=== PATIENT | male | born 1950 | race Caucasian/White ===

== ENCOUNTER 2021-01-10 11:02 | Outpatient (REF) | payer MEDICARE, SELFPAY ==
[2021-01-10 12:39] LABS: MANUAL DIFF FLAG NO
[2021-01-10 12:48] LABS: Basophils Absolute Auto 0.1 X10*3/uL (0.0-0.2); Basophils Percent Auto 0.8 % (0-2); Eosinophils Absolute Auto 0.1 X10*3/uL (0.0-0.4); Eosinophils Percent Auto 1.4 % (0-4); Hemoglobin 14.5 g/dl (14.0-18.0); Imm Gran Abs Auto 0.02 X10*3/uL (0.00-0.03); Imm Gran Pct Auto 0.3 % (0.0-0.4); Lymphocytes Absolute Auto 1.3 X10*3/uL (1.2-4.9); Lymphocytes Percent Auto 19.4 % (20-40); Mean Corpuscular Hemoglobin 32.2 pg (27.0-33.0); Mean Corpuscular Volume 97.8 fL (80-98); Mean Platelet Volume 9.9 fL (9.4-12.4); Monocytes Absolute Auto 0.6 X10*3/uL (0.1-1.2); Monocytes Percent Auto 9.9 % (2-11); Neutrophils Absolute Auto 4.4 X10*3/uL (2.0-8.3); Neutrophils Percent Auto 68.2 % (45-73); Platelet Count 238 X10*3/uL (160-400); Red Cell Distribution Width 12.3 % (11.0-16.0); White Blood Count 6.5 X10*3/uL (4.8-10.8)
[2021-01-10 13:17] LABS: Anion Gap 15 (12-20); Blood Urea Nitrogen 24 mg/dL (9-16); Calcium 8.8 mg/dL (8.4-10.2); Carbon Dioxide 24 mmol/L (22-29); Chloride 107 mmol/L (96-108); Estimated Glomerular Filt Rate > 60; Glucose Random 89 mg/dL (60-115); Potassium 4.6 mmol/L (3.3-5.1); Sodium 141 mmol/L (135-145)
== END 2021-01-10 11:03 | disposition home or self-care (01) ==
LOC: HO.LAB 11:02
PROVIDERS: PCP Internal Medicine; Visit Provider Internal Medicine
DX: Z00.00 Encounter for general adult medical examination without abnormal findings (principal); R51.9 Headache, unspecified
CPT/HCPCS: 36415; 80048; 85025

== ENCOUNTER → 2021-01-20 10:59 | Outpatient (BNVA) | payer MEDICARE, SELFPAY | PROVIDERS: PCP Internal Medicine; Visit Provider Nurse Practitioner | DX: K62.5 Hemorrhage of anus and rectum (principal); R19.7 Diarrhea, unspecified | CPT/HCPCS: Q3014 ==

== ENCOUNTER 2021-01-21 08:10 | Outpatient (REF) | payer MEDICARE, SELFPAY ==
[2021-01-21 09:16] LABS: C Reactive Protein 0.09 mg/dL (< or = 0.50)
[2021-01-23 13:11] LABS: Transglutaminase Ab IgG 1 U/mL; Transglutaminase IgA 1 U/mL
[2021-01-23 16:01] LABS: Gliadin Deamidated IgA Ab 7 Units; Gliadin Deamidated IgG Ab 4 Units
== END 2021-01-21 08:11 | disposition home or self-care (01) ==
LOC: HO.LAB 08:10
PROVIDERS: PCP Internal Medicine; Visit Provider Nurse Practitioner
DX: K62.5 Hemorrhage of anus and rectum (principal); R19.7 Diarrhea, unspecified
CPT/HCPCS: 36415; 83516; 86140

== ENCOUNTER 2021-01-23 08:37 | Outpatient (REF) | payer MEDICARE, SELFPAY ==
[2021-01-23 11:59] LABS: CDIFF Ag Negative (Negative); CDIFF Internal ctrl Dots and bkg OK (V); CDiff Toxin Negative (Negative)
== END 2021-01-23 08:38 | disposition home or self-care (01) ==
LOC: HO.LNP 08:37
PROVIDERS: Visit Provider Nurse Practitioner
DX: K62.5 Hemorrhage of anus and rectum (principal); R19.7 Diarrhea, unspecified
CPT/HCPCS: 87045; 87046; 87324; 87449

== ENCOUNTER → 2021-01-30 10:26 | Outpatient (BNVA) | payer MEDICARE, SELFPAY | PROVIDERS: Visit Provider Nurse Practitioner | DX: K62.5 Hemorrhage of anus and rectum (principal); R19.7 Diarrhea, unspecified; R63.4 Abnormal weight loss; F17.200 Nicotine dependence, unspecified, uncomplicated; Z71.6 Tobacco abuse counseling | CPT/HCPCS: Q3014 ==

== ENCOUNTER → 2023-03-11 12:48 | Outpatient (BNVA) | payer MEDICARE, SELFPAY | PROVIDERS: PCP Internal Medicine; Visit Provider Nurse Practitioner Family | DX: N40.0 Benign prostatic hyperplasia without lower urinary tract symptoms (principal); N52.9 Male erectile dysfunction, unspecified | CPT/HCPCS: 51798; 99202 ==

== ENCOUNTER 2023-03-28 14:00 | Outpatient (REF) | payer MEDICARE, SELFPAY ==
--- NOTE | ~2023-03-28 | US_ITS ---
EXAMINATION: US RETROPERITONEAL COMPLETE (RENAL) CLINICAL INFORMATION: BPH with lower urinary tract symptoms. COMPARISON: None available. TECHNIQUE: Real-time imaging of the kidneys and bladder. FINDINGS: RIGHT KIDNEY: 10.7 x 4.3 x 5.1 cm (SAG x AP x TRV). The kidney is normal in size, contour, and echogenicity. Renal cortical thickness is normal. No calculi or focal parenchymal lesions. No hydronephrosis. Mild caliectasis. LEFT KIDNEY: 10.4 x 4.4 x 5.4 cm (SAG x AP x TRV). The kidney is normal in size, contour, and echogenicity. Renal cortical thickness is normal. No calculi or focal parenchymal lesions. No hydronephrosis. BLADDER: Well distended and normal. Bilateral ureteral jets are demonstrated. Prevoid bladder volume is 130 mL. Postvoid bladder volume is 26 mL. PROSTATE: 47 mL. US/US retroperitoneal comp IMPRESSION: Enlarged prostate. Mild right caliectasis. No hydronephrosis.
[2023-03-28 16:52] LABS: PSA,Total (Free>4and<10) 1.52 ng/mL (0.00-4.00)
== END 2023-03-28 14:01 | disposition home or self-care (01) ==
LOC: HO.US 14:00
PROVIDERS: PCP Internal Medicine; Visit Provider Nurse Practitioner Family
DX: N40.0 Benign prostatic hyperplasia without lower urinary tract symptoms (principal); Z12.5 Encounter for screening for malignant neoplasm of prostate
CPT/HCPCS: 36415; 76770; 84153

== ENCOUNTER → 2023-04-18 13:47 | Outpatient (BNVA) | payer MEDICARE, SELFPAY | PROVIDERS: Visit Provider Nurse Practitioner Family | DX: N52.9 Male erectile dysfunction, unspecified (principal); R39.9 Unspecified symptoms and signs involving the genitourinary system | CPT/HCPCS: 51798; 99212 ==

== ENCOUNTER 2024-10-19 09:55 | Outpatient (AMB) | payer MEDICARE, SELFPAY ==
--- OUTSIDE RECORDS SUMMARY | 2024-10-19 09:58 | XMS_ITS | Patient Health Record ---
Author Organization [facility] Address [address] [place] [address] Care Team Providers Care Inventory Transcriber Name Role Phone Evin JASON, Radha Primary Care Provider Unavail able Natanael Evans Unavailable [phone] Allergies Allergen (clinical drug ingredient) Drug/Non Drug Allergy documented on EMR Reaction Allergy Type Onset Date Status amoxicillin Amoxicillin rash Drug Allergy Act sharon povidone-iodine Betadine Unknown Drug Allergy A ctive Shellfish (FN) Shellfish-derived Products Unknown Drug Allergy Active Reason For Referral No Information Social History Tobacco Use: Social History Observation Description Date Details (start date - stop date) Former Smoker NA - NA Tobacco Use/Smoking Question Answer Notes Are you a: former smoker Additional Findings: Tobacco Non-User Ex-cigaret te smoker Alcohol Screen Question Answer Notes Did you have a drink contain ing alcohol in the past year? Yes How often did you have a dri nk containing alcohol in the past year? 2 to 3 times a week (3 points) Points 3 Interpretation Negative Problems Problem Type SNOMED Code ICD Code Onset Dates Problem Status W/U Status Risk Notes Problem [id number] Hammer toe of left foot (M20.42) Active confirmed Plan Of Treatment Pending Test Test Name Order Date X ray : Foot, left 3V 05/23/2022 Insurance Providers Payer Name Payer Address Payer Phone Subscriber Number Group Number Insured Name Patient Relationship to Insured Coverage Start Date Coverage End Date United [employer] Medicare [id number] [address] [address] [place] [address] [phone] [id number] Ruslan Hoang Self - patient is the insured Medical (General) History Medical History History ICD Code Chicken pox Surgical History Surgery Date(Month/Year) hernia 2012
--- NOTE | 2024-10-19 09:59 | MHC.PC.OV ---
Vital Signs 10/19/24 10:12 Height 5 ft 7 in Weight 139 lb 8 oz BMI 21.8 BP 130/76 Blood Pressure Location Lt brachial Position Sitting Intake Visit Reasons: establish care Intake Note: Patient is here today to re-establish care. 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: No Real Estate Rep: Not Required per policy Accompanied by: Self / Same As Patient Allergies penicillin G Allergy (Unknown, Verified 10/19/24 13:00) hives Medication List - Last Reconciled 10/19/24 by Nikolai Nicolas MD ciprofloxacin HCl 250 mg PO BID pantoprazole 40 mg PO DAILY Tobacco use date assessed: 10/19/24 Fall risk assessment: No Falls in past year Last assessed Fall Risk: 10/19/24 Dental Screening Dental Screen Date: 10/19/24 Did you have a dental visit in the last 12 months?: No Did you have a dental problem in the last 6 months where you did not have access to dental care?: No Was dental information given to patient?: No PFSH Surgical History Hx of colonoscopy (~2019) History of hernia surgery Family History (Updated 10/19/24 @ 09:59 by LYNDON Meneses) Mother No problems noted. Father No problems noted. 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 1. Little interest or pleasure in doing things: several days 2. Feeling down, depressed, or hopeless: several days 3. Trouble falling or staying asleep, or sleeping too much: several days 4. Feeling tired or having little energy: several days 5. Poor appetite or overeating: several days 6. Feeling bad about yourself - or that you are a failure or have let yourself or your family down: not at all 7. Trouble concentrating on things, such as reading the newspaper or watching television: not at all 8. Moving or speaking so slowly that other people could have noticed. Or the opposite - being so fidgety or restless that you have been moving around a lot more than usual: not at all 9. Thoughts that you would be better off or of hurting yourself in some way: not at all Total score: 5 Depression Screening Interpretation: Positive Depression Screening Done: Yes Source: Developed by Drs. Tim Sol, Krystyna Castillo, Vidal Lagos and colleagues, with an educational praveen from [email or web address]. Thrive Questionnaire Date Thrive assessed: 10/19/24 I am a: Patient What is your living situation today?: I have a steady place to live Within the past 12 months, did the food you bought not last and you didn't have the money to get more?: Never true Within the past 12 months, did you worry whether your food would run out before you got money to buy more?: Never true Do you have trouble paying for medicines?: No Do you have trouble getting transportation to medical appointments?: No Do you have trouble paying your heating and electricity bill?: No Do you have trouble taking care of your child, family member or friend?: No Do you have trouble with day-to-day activities such as bathing, preparing meals, shopping, managing finances, etc.?: No Are you currently unemployed and looking for a job?: No Are you interested in more education?: No Please select the resources that you would like help with: None Currently or been in a relationship where the following occur: No concerns reported THRIVE Score: 0 AUDIT C Alcohol Use Questionnaire (AUDIT-C) 1. How often do you have a drink containing alcohol?: 4 or more times a week 2. How many drinks containing alcohol do you have on a typical day when you are drinking?: 3 or 4 3. How often do you have six or more drinks on one occasion?: Never Total Score: 5 REJI-7 AMB Questionnaire REJI-7 Date REJI - 7 assessed: 10/19/24 Feeling nervous, anxious, or on edge: 0 = Not at all Not being able to stop or control worryin = Not at all Worrying too much about different things: 1 = Several days Trouble relaxin = Several days Being so restless that it is hard to sit still: 1 = Several days Becoming easily annoyed or irritable: 1 = Several days Feeling afraid as if something awful might happen: 1 = Several days Total REJI-7 score (0-4 normal; 5-9 mild; 10-14 moderate; 15-21 severe): 5 Source: Developed by Drs. Tim Sol, Krystyna Castillo, Vidal Lagos and colleagues, with an educational praveen from [email or web address]. Physical exam (Primary Care) Vital Signs: Last Vital Signs BP 130/76 10/19/24 10:12 BMI result Body Mass Index 21.8 Tobacco/Smoking Status: Tobacco use Status Tobacco use date assessed 10/19/24 10/19/24 10:03 Patient Tobacco Use Status Current everyday Tobacco 10/19/24 10:19 Tobacco use type Cigarette 10/19/24 10:19 e-Cigarette/Vaping Use Never Used 10/19/24 10:19 PHQ-9: PHQ-9 Score PHQ-9: Total score 5 10/19/24 10:00 Depression Screening Interpretation: Positive Thrive Assessment: Date of Thrive Assessment Date Thrive assessed 10/19/24 10/19/24 10:00 Currently or been in a relationship where the following occur: No concerns reported Coding Level of Care Code Est Pt Level 4 (36604) Complex EM visit Add On G2211 Diagnoses Rectal bleeding K62.5 Assessment & Plan Assessment & Plan (1) Rectal bleeding: Comment: 20 min reviewing chart evaluating patinet and documenting Code(s): K62.5 - Hemorrhage of anus and rectum Category: Medical Plan: Blood work has been ordered. CT scan of abdomen requested. Empric treatment with abx and PPI. Plan History of Present Illness The patient is a 74-year-old male presenting with irregular bowel movements and rectal bleeding. He reports experiencing loose stools that are not consistent with diarrhea for the past three weeks, resulting in irritation and bright red bleeding noted after four to five bowel movements. He describes abdominal pressure in the mornings, with symptoms persisting during late night hours. He experiences occasional nocturnal awakening due to gas sensations, which leads to bowel movements. The patient has had no relevant medical intervention or medications for this condition to date. He also mentions having a stable weight of approximately 140 pounds with no significant changes recently. A past colonoscopy performed a decade ago did not reveal any issues. Additionally, the patient has a history of prostate-related urinary difficulties but does not currently receive care from a urologist. 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 - Genitourinary: Reports occasional urinary difficulties associated with a history of prostate issues. Physical Exam General: Cooperative and healthy appearing Nutritional Appearance: Well nourished Orientation/consciousness: Patient oriented x3 Limitations: No limitations Head: Normal to inspection General: Appearance normal, both eyes and all related structures Neck: Normal visual inspection Chest: Normal palpation of entire chest wall Respiratory: Normal respiratory effort Abd: epigastric are thickening, ?lump, Bowel sounds heard, ?hepatomegaly. Neurology: Patient oriented x3 Rectal exam: no external hemorrhoid, rectal vault empty. Results Plan - Order blood work to evaluate liver and kidney function and check for possible infection. - Prescribe antiacid medication for stomach symptom relief. - Prescribe antibiotic to rule out bacterial infection. - Schedule a CAT scan of the abdomen to assess the firm area and further evaluate gastrointestinal symptoms. - Follow-up appointment scheduled for three weeks. Patient was informed and verbally consented to the use of an ambient scribe for clinic note documentation during this visit. Discussion Notes I discussed with the patient the potential causes of his irregular bowel movements and rectal bleeding, emphasizing the importance of confirming whether a bacterial infection is present. We reviewed the need for blood work and the CAT scan to ascertain the cause of his symptoms. Furthermore, I advised starting an antiacid and antibiotic treatment regimen to manage symptoms and potential causes. We agreed that I will see the patient again in three weeks to review the results and assess the patient's response to treatment. I also confirmed that they will be notified for arranging the CAT scan appointment. Patient Instructions - Proceed to the hospital for blood work today. - Start the prescribed antiacid and antibiotic medication as instructed. - Await notification for scheduling of the CAT scan. - Return for a follow-up appointment in three weeks on a specified . - Monitor for any worsening symptoms or new symptoms and seek care if they occur. Orders: Orders Basic Metabolic Panel Today K62.5 - Hemorrhage of anus and rectum Lipid Panel Today K62.5 - Hemorrhage of anus and rectum Liver Panel Today K62.5 - Hemorrhage of anus and rectum Thyroid Stimulating Hormone Today K62.5 - Hemorrhage of anus and rectum UA and rflx microscopic Today K62.5 - Hemorrhage of anus and rectum Complete Blood Count no Diff Today K62.5 - Hemorrhage of anus and rectum Erythrocyte Sedimentation Rate Today K62.5 - Hemorrhage of anus and rectum Medications: New ciprofloxacin HCl 250 mg PO BID 14 tabs 0RF pantoprazole 40 mg PO DAILY 90 tabs 1RF
[2024-10-19 10:12] VITALS: BP 130/76; BMI 21.8
== END 2024-10-19 10:41 | disposition home or self-care (01) ==
PROVIDERS: Visit Provider Internal Medicine
DX: K62.5 Hemorrhage of anus and rectum (principal)

== ENCOUNTER → 2024-10-19 09:55 | Outpatient (BNVA) | payer MEDICARE, SELFPAY | PROVIDERS: Visit Provider Internal Medicine | DX: K62.5 Hemorrhage of anus and rectum (principal) | CPT/HCPCS: 96127; 99212 ==

== ENCOUNTER 2024-11-04 12:01 | Outpatient (REF) | payer MEDICARE, SELFPAY ==
--- NOTE | ~2024-11-04 | CT_ITS ---
EXAMINATION: CT ABDOMEN PELVIS WITH IV CONTRAST HISTORY: K62.5 - Hemorrhage of anus and rectum COMPARISON: There are no prior studies for comparison. TECHNIQUE: CT scan of the abdomen and pelvis was performed following administration of 85 mL Omnipaque 350 using standard departmental protocol. Coronal and sagittal reformatted images were generated and reviewed. Oral contrast material was not administered at the request of the referring physician. This CT exam was performed with one or more of the following dose reduction techniques: automated exposure control, adjustment of the mA and/or kV according to patient size, use of iterative reconstruction technique. DLP: 230 mGy-cm FINDINGS: LOWER CHEST: The visualized lung bases are clear. There is no pleural effusion. CARDIOVASCULATURE: The heart is normal in size. There is a small amount of pericardial fluid. LIVER: The liver is normal in size and contour. No liver mass is identified. The hepatic and portal veins are patent. GALLBLADDER / BILE DUCTS: The gallbladder is unremarkable. There is no intra or extrahepatic biliary ductal dilatation. SPLEEN: The spleen is normal in size. No focal splenic lesion is identified. PANCREAS: The pancreas is unremarkable in appearance. ADRENAL GLANDS: Within normal limits. KIDNEYS/RETROPERITONEUM: No renal calculi are identified. There is no hydronephrosis. No renal masses are identified. LYMPH NODES: No abdominal or pelvic lymphadenopathy. VASCULATURE: The abdominal aorta demonstrates atherosclerotic calcification, but is normal in caliber. MESENTERY/PERITONEUM: No free fluid. No masses. There is no free intraperitoneal gas. STOMACH: The stomach is collapsed, limiting evaluation. SMALL BOWEL: The small bowel is normal in caliber. COLON: There are areas of segmental wall thickening and mucosal hyperenhancement involving the ascending colon and sigmoid, as well as the rectum, compatible with colitis. There is no adjacent extraluminal gas or loculated fluid collection. APPENDIX: Normal. URINARY BLADDER/PELVIC ORGANS: The urinary bladder is collapsed, limiting evaluation. The prostate is normal in size. BONES / SOFT TISSUES: There is degenerative disc disease of the spine. CT/CT abdomen pelvis w IV con IMPRESSION: Multifocal areas of segmental wall thickening and mucosal hyperenhancement involving the ascending colon, sigmoid colon, and the rectum, compatible with colitis. Electronically signed by: Tim Chaudhary MD 11/04/2024 02:25 PM [facility]
[2024-11-04 12:46] LABS: Hematocrit 43.6 % (42.0-52.0); Mean Corpuscular HGB Conc 34.4 g/dl (31.0-36.0); Platelet Count 216 X10*3/uL (160-400); Red Blood Count 4.54 X10*6/uL (4.60-5.80); Red Cell Distribution Width 12.4 % (11.0-16.0); White Blood Count 6.2 X10*3/uL (4.8-10.8)
[2024-11-04 13:05] LABS: Alanine Aminotransferase 11 U/L (0-40); Alkaline Phosphatase 59 U/L (39-117); Anion Gap 10 (12-20); Aspartate Amino Transferase 16 U/L (5-37); Bilirubin Direct 0.1 mg/dL (0.0-0.5); Bilirubin Total 0.4 mg/dL (0.0-1.0); Blood Urea Nitrogen 22 mg/dL (9-16); Calcium 8.8 mg/dL (8.4-10.2); Carbon Dioxide 26 mmol/L (22-29); Chloride 111 mmol/L (96-108); Cholesterol 181 mg/dL (<200); Estimated Glomerular Filt Rate > 60; Glucose Random 113 mg/dL (60-115); HDL Cholesterol 69 mg/dL (>40); LDL Cholesterol Calculated 99 mg/dL (<100); Potassium 4.5 mmol/L (3.3-5.1); Sodium 142 mmol/L (135-145); Total Protein 6.3 g/dL (6.5-8.0); Triglycerides 65 mg/dL (<150)
[2024-11-04 13:19] LABS: Thyroid Stimulating Hormone 1.05 uIU/mL (0.32-4.0)
[2024-11-04 13:21] LABS: Erythrocyte Sedimentation Rate 2 MM/HR (0-15)
[2024-11-04 13:26] LABS: Appearance Urine Clear; Color Urine Dark Yellow; Glucose Urine UA Negative (Negative); Leukocyte Esterase Urine Negative (Negative); Nitrite Urine Negative (Negative); PH 5.5 (5.0-9.0); Specific Gravity - Urine 1.025 (1.005-1.025); Urine Blood Negative (Negative); Urine Ketones Trace mg/dL (Negative); Urine Protein Negative (Neg-Trace)
[2024-11-04] MEDS: iohexoL 350 MG/ML 100 ML INFUS..BTL IV (14:10)
== END 2024-11-04 12:02 | disposition home or self-care (01) ==
LOC: HO.CT 12:01
PROVIDERS: Visit Provider Internal Medicine
DX: Z13.6 Encounter for screening for cardiovascular disorders (principal); K62.5 Hemorrhage of anus and rectum; R19.00 Intra-abdominal and pelvic swelling, mass and lump, unspecified site
CPT/HCPCS: 36415; 74177; 80048; 80061; 80076; 81003; 84443; 85027; 85652; Q9967

== ENCOUNTER → 2024-11-04 12:47 | Outpatient (BNV) | payer MEDICARE, SELFPAY | PROVIDERS: Visit Provider Radiology Diagnostic Radiology | DX: K63.89 Other specified diseases of intestine (principal) | CPT/HCPCS: 74177 ==

== ENCOUNTER → 2024-11-13 12:54 | Outpatient (BNVA) | payer MEDICARE, SELFPAY | PROVIDERS: Visit Provider Internal Medicine | DX: K52.9 Noninfective gastroenteritis and colitis, unspecified (principal); K62.5 Hemorrhage of anus and rectum; R63.4 Abnormal weight loss; R93.3 Abnormal findings on diagnostic imaging of other parts of digestive tract | CPT/HCPCS: 99202 ==

== ENCOUNTER 2024-11-19 10:08 | Outpatient (AMB) | payer MEDICARE, SELFPAY ==
--- NOTE | 2024-11-19 10:19 | MHC.PC.OV ---
Vital Signs 11/19/24 10:21 Height 5 ft 7 in Weight 139 lb 6 oz BMI 21.8 BP 110/72 Blood Pressure Location Lt brachial Position Sitting Pulse 55 Pulse Source Pulse Oximeter Temp 97.1 F Temp Source Skin Pulse Oximetry (%) 93 Oxygen Delivery Method Room Air Intake Visit Reasons: 3 Week F/U Intake Note: Patient is here to follow up on Rectal Bleeding. Nuclear Medicine Technician Required: No Shuttle Van Driver: Not Required per policy Accompanied by: Self / Same As Patient Allergies penicillin G Allergy (Unknown, Verified 11/24/24 06:22) hives Medication List - Last Reconciled 11/24/24 by Nikolai Nicolas MD pantoprazole 40 mg PO DAILY peg 3350-electrolytes 236-22.74-6.74 -5.86 gram (Golytely) 240 mL PO Q10M Tobacco use date assessed: 11/19/24 Fall risk assessment: No Falls in past year Last assessed Fall Risk: 11/19/24 Dental Screening Dental Screen Date: 11/19/24 Did you have a dental visit in the last 12 months?: No Did you have a dental problem in the last 6 months where you did not have access to dental care?: No Was dental information given to patient?: No HPI 3 Week F/U HPI Details 74-year-old male presents to the office for a follow-up visit. Patient was seen in the last office visit for diarrhea, bleeding per rectum and abdominal discomfort. On physical exam heart swelling was diagnosed in the epigastric area. Blood work and CT scan were ordered which have been completed. The CT scan shows thickening of the colon. Patient's symptoms have reduced and he is able to function and do all activities of daily living. Patient has been seen by a strainer mill operator and a colonoscopy has been scheduled. [facility] Surgical History Hx of colonoscopy (~2019) History of hernia surgery Family History Mother Stroke Father Pancreatic cancer Heart disease Sister Breast cancer Social History Household Members: Spouse Housing: House Alcohol intake: current Alcohol intake frequency: 3 or more drinks per day Alcohol type: beer Patient Tobacco Use Status: Current everyday Tobacco user Tobacco use type: Cigarette Cigarette Packs Per Day: 0.5 Cigarettes Per Day: 10 e-Cigarette/Vaping Use: Never Used Second Hand Smoke Exposure: Yes service: No Current occupational status: employed 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 1. Little interest or pleasure in doing things: several days 2. Feeling down, depressed, or hopeless: several days 3. Trouble falling or staying asleep, or sleeping too much: several days 4. Feeling tired or having little energy: several days 5. Poor appetite or overeating: several days 6. Feeling bad about yourself - or that you are a failure or have let yourself or your family down: not at all 7. Trouble concentrating on things, such as reading the newspaper or watching television: not at all 8. Moving or speaking so slowly that other people could have noticed. Or the opposite - being so fidgety or restless that you have been moving around a lot more than usual: not at all 9. Thoughts that you would be better off or of hurting yourself in some way: not at all Total score: 5 Depression Screening Interpretation: Positive Depression Screening Done: Yes Source: Developed by Drs. Tim Sol, Krystyna Castillo, Vidal Lagos and colleagues, with an educational praveen from [employer]. Thrive Questionnaire Date Thrive assessed: 11/19/24 I am a: Patient What is your living situation today?: I have a steady place to live Within the past 12 months, did the food you bought not last and you didn't have the money to get more?: Never true Within the past 12 months, did you worry whether your food would run out before you got money to buy more?: Never true Do you have trouble paying for medicines?: No Do you have trouble getting transportation to medical appointments?: No Do you have trouble paying your heating and electricity bill?: No Do you have trouble taking care of your child, family member or friend?: No Do you have trouble with day-to-day activities such as bathing, preparing meals, shopping, managing finances, etc.?: No Are you currently unemployed and looking for a job?: No Are you interested in more education?: No Please select the resources that you would like help with: None Currently or been in a relationship where the following occur: No concerns reported THRIVE Score: 0 AUDIT C Alcohol Use Questionnaire (AUDIT-C) 2. How many drinks containing alcohol do you have on a typical day when you are drinking?: 1 or 2 3. How often do you have six or more drinks on one occasion?: Never Total Score: 0 REJI-7 AMB Questionnaire REJI-7 Date REJI - 7 assessed: 10/19/24 Feeling nervous, anxious, or on edge: 0 = Not at all Not being able to stop or control worryin = Not at all Worrying too much about different things: 1 = Several days Trouble relaxin = Several days Being so restless that it is hard to sit still: 1 = Several days Becoming easily annoyed or irritable: 1 = Several days Feeling afraid as if something awful might happen: 1 = Several days Total REJI-7 score (0-4 normal; 5-9 mild; 10-14 moderate; 15-21 severe): 5 Source: Developed by Drs. Tim Sol, Krystyna Castillo, Vidal Lagos and colleagues, with an educational praveen from [employer]. Physical exam (Primary Care) Vital Signs: Last Vital Signs Temp 97.1 F 11/19/24 10:21 Pulse 55 11/19/24 10:21 BP 110/72 11/19/24 10:21 Pulse Ox 93 11/19/24 10:21 Oxygen Delivery Method Room Air 11/19/24 10:21 BMI result Body Mass Index 21.8 Tobacco/Smoking Status: Tobacco use Status Tobacco use date assessed 11/19/24 11/19/24 10:32 Patient Tobacco Use Status Current everyday Tobacco 11/19/24 10:19 Tobacco use type Cigarette 11/19/24 10:19 e-Cigarette/Vaping Use Never Used 11/19/24 10:19 PHQ-9: PHQ-9 Score PHQ-9: Total score 5 11/19/24 10:19 Depression Screening Interpretation: Positive Thrive Assessment: Date of Thrive Assessment Date Thrive assessed 11/19/24 11/19/24 10:19 Currently or been in a relationship where the following occur: No concerns reported Const General: cooperative and healthy appearing Nutritional Appearance: well nourished Orientation/consciousness: patient oriented x3 Limitations: no limitations HENMT Head: Yes normal to inspection Eyes General: appearance normal, both eyes and all related structures Neck Neck: Yes normal visual inspection Chest Chest palpation & inspection: normal palpation of entire chest wall Resp Effort & Inspection: normal respiratory effort GI Other: Swelling in the epigastric area present. Neuro General: patient oriented x3 Coding Level of Care Code Est Pt Level 4 (36495) Complex EM visit Add On G2211 Diagnoses Rectal bleeding K62.5 Assessment & Plan Assessment & Plan (1) Rectal bleeding: Code(s): K62.5 - Hemorrhage of anus and rectum Category: Medical Plan: A colonoscopy has been scheduled.IBD such as crohns or UC, infectious colitis or malignancy could be a cause of his symptoms. Workup to be continued after colonoscopy results are available.
[2024-11-19 10:21] VITALS: BP 110/72; PULSE 55; TEMP 36.2; O2SAT 93; BMI 21.8
--- OUTSIDE RECORDS SUMMARY | 2024-11-19 13:21 | XMS_ITS | Patient Health Record ---
Author Organization [facility] Address [address] [place] [address] Care Team Providers Care Audit Mgr Name Role Phone Evin JASON, Radha Primary Care Provider Unavail able Natanael Evans Unavailable [phone] Allergies Allergen (clinical drug ingredient) Drug/Non Drug [...] Problem Status W/U Status Risk Notes Problem [id number] Hammer toe of left foot (M20.42) Active confirmed Plan Of Treatment Pending Test Test Name Order Date X ray : Foot, left 3V 05/23/2022 Insurance Providers Payer Name Payer Address Payer Phone Subscriber Number Group Number Insured Name Patient Relationship to Insured Coverage Start Date Coverage End Date [employer] Medicare [id number] [address] [address] [place] [address] [id number] Ruslan Hoang Self - patient is the insured Medical (General) History Medical History History ICD Code Chicken pox Surgical History Surgery Date(Month/Year) hernia 2012
--- OUTSIDE RECORDS SUMMARY | 2024-11-19 13:21 | XMS_ITS | Data Portability ---
Author Organization [facility], , [facility] Address [address] [place] [address] Care Team Providers [employer] Secretary Name Role Phone KERWIN SPRINGER Primary Care Provider [phone] MELBA SPRINGER Primary Care Provider AILIN IZAGUIRRE General Office Assistant [facility] [employer] Network Systems Administrator CLAUDETTE MCLAIN Yeast Culture Developer Assessment Encounter Date Assessment Date Assessment LastModified by Organization Details LastModified Time 08/07/2017 08/07/2017 Metatarsalgia/ pain 3rd toe left foot, pes planovalgus deformity jerskine Not available 08/07/2017 09:39:25 Plan of Treatment Reminders Order Date Submit Date Provider Last Modified By Organization Details Last Modified Time Details Appointments None recorded. Lab lyme disease igg+igm Ab, serum 2015 016 [facility], [address] [place] [address], [address], 6 14:13:14 CMP, serum or plasma 2015 016 [facility], [address] [place] [address], [address], 6 15:33:36 CBC 2015 016 [facility], [address] [place] [address], [address], 6 15:10:48 TSH, serum or plasma 2015 016 [facility], [address] [place] [address] St, [place], [address], 6 10:09:46 Referral warehouse order filler referral 2016 017 joel Cohen Dmitriy DPM, [address] [facility], [place], [address], 7 11:12:35 Procedures colonoscopy procedure (PROC) 2016 017 [email or web address] en1 [facility], [address] [facility], [place], [address], 7 10:30:13 Surgeries None recorded. Imaging x-ray, chest - smoker , with 6 wks fatigue- increasing cough. exam- decreased bs 2015 016 [facility] ([facility]), [address] , [place], [address], 6 11:21:56 Medication Orders erythromyci n 5 mg/gram (0.5 %) eye ointment 2016 017 [facility][id number], [address], [place], [id number], 7 10:26:41 Cialis 20 mg tablet 2016 017 [email or web address] [facility] #[id number], [address], [place], [id number], 7 10:59:07 Patient Targets Encounter Date Encounter Id Patient Goals Patient Target Last Modified By Organization Details Last Modified Time Smoking cessation, see notes above jdepiero Not available 08/13/2017 10:53:04 Patient Instructions Encounter Date Encounter Id Patient Instructions Last Modified By Organization Details Last Modified Time 07/14/2014 [id number] Well Visit 50 to 65: Care Instructions fkim Not available 07/14/2014 23:29:23 02/22/2016 [id number] Quitting Tobacco : Care Instructions ashelkey Not available 02/22/2016 10:45:25 deciding about using medicines to quit smoking ashelkey Not available 02/22/2016 10:45:25 Counseling done {{# Patient not ready to quit Contemplating quitting Tapering Cigarettes signed up for support prescripti on for stop smoking medication given}} {{# Patient not ready to quit Contemplating quitting Tapering Cigarettes signed up for support prescripti on for stop smoking medication given}} Goal for follow up visit {{# adding exercise regular meals 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 [facility]}} {{# adding exercise regular meals 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 id [facility] sponsor}} {{# adding exercise regular meals 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 id [facility] sponsor}}My Health To Do List {{# go to [place] or call sig n up for randolph text 2 quit or other stop smoking randolph contact [employer]}} {{# go to [place] or call sig n up for randolph text 2 quit or other stop smoking randolph contact [place]}} {{# go to quitWorkWith.me or call sig n up for randolph text 2 quit or other stop smoking randolph contact smokeSD Motiongraphiks.gov}} ashelkey Not available 02/22/2016 10:04:22 07/29/2017 [id number] deciding about using medicines to quit smoking ashelkey Not available 07/29/2017 15:46:30 Quitting Tobacco : Care Instructions ashelkey Not available 07/29/2017 15:46:31 Counseling done {{Patient not ready to quit Contemplating quitting Tapering Cigarettes signed up for support prescripti on for stop smoking medication given}} {{Patient not ready to quit Contemplating quitting Tapering Cigarettes signed up for support prescripti on for stop smoking medication given}} Goal for follow up visit {{adding exercise regular meals 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 identifying sponsor}} {{adding exercise regular meals 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 identifying sponsor}} {{adding exercise regular meals 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 identifying sponsor}}My Health To Do List {{go to [employer] or call sig n up for randolph text 2 quit or other stop smoking randolph contact smokeSD [employer]graphiks[employer]}} {{go to quitWorkWith.me or call sig n up for randolph text 2 quit or other stop smoking randolph contact smokefree.gov}} {{go to quitWorkWith.me or call sig n up for randolph text 2 quit or other stop smoking randolph contact smokefree.gov}} aesrick Not available 07/29/2017 15:12:41 08/07/2017 [id number] Patient states h e will pursue prefabricated orthotic/crest pad at this time and return if symptoms persist. jerskine Not available 08/07/2017 09:39:55 Counseling done {{Patient not ready to quit Contemplating quitting Tapering Cigarettes signed up for support prescripti on for stop smoking medication given}} {{Patient not ready to quit Contemplating quitting Tapering Cigarettes signed up for support prescripti on for stop smoking medication given}} Goal for follow up visit {{adding exercise regular meals 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 identifying sponsor}} {{adding exercise regular meals 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 identifying sponsor}} {{adding exercise regular meals stress management improvi [employer] sleep therapist identifying sponsor}}My Health To Do List {{go to [place] or call sig n up for randolph text 2 quit or other stop smoking randolph contact smokefree.gov}} {{go to quitWorkWith.me or call sig n up for randolph text 2 quit or other stop smoking randolph contact smokefree.gov}} {{go to quitWorkWith.me or call sig n up for randolph text 2 quit or other stop smoking randolph contact smokefree.gov}} Not available 08/07/2017 09:13:44 08/13/2017 [id number] deciding about using medicines to quit smoking jdepiero Not available 08/13/2017 10:59:07 Quitting Tobacco : Care Instructions jdepiero Not available 08/13/2017 10:59:07 preventing falls : care instructions jdepiero Not available 08/13/2017 10:59:07 hearing loss: ca re instructions jdepiero Not available 08/13/2017 10:59:07 advance directives: care instructions jdepiero Not available 08/13/2017 10:59:07 well visit, over 65: care instructions jdepiero Not available 08/13/2017 10:59:07 Please consider coming in for your vaccinations at any point this year - you need a flu shot, a tetanus shot and your first pneumonia shots. [email or web address] Not available 08/13/2017 10:53:31 Prostate Cancer Screening using PSA was discussed. The U.S. Preventive Services Task Force advises not to make a PSA test a part of the standard exam for men ages 55-69. Instead they recommend the uncertainties about the test be discussed and ordered only if a patient still wants it. Over their lifetimes as many as 50% or more of men will develop prostate cancer but only 2% of men will of prostate cancer. For men who chose to be screened for prostate cancer if 1000 men are screened with a psa test over a 15 year period there might be 1-2 deaths prevented however 235 men will have a biopsy with risk of infection, bleeding and Pain, 100 men will have their prostate removed by surgery or radiation treatments and 60-70 of those will suffer incontinence or impotence. There is also the risk of anesthesia or radiation complications. For men over 70 prostate cancer screening offered no benefit and risked pain, worry, expense and possibly shorter life expectancy. Pt declines all vaccinations despite vocational rehabilitation counselor. He is enc to consider and call for appointment. Counseling done {{Patient not ready to quit Contemplating quitting Tapering Cigarettes* signed up for support prescripti on for stop smoking medication given}} {{Patient not ready to quit Contemplating quitting Tapering Cigarettes signed up for support prescripti on for stop smoking medication given}} Goal for follow up visit {{adding exercise* regular meals stress management improvi sleep therapist identifying sponsor}} {{adding exercise regular meals stress management improvi sleep therapist identifying sponsor}} {{adding exercise regular meals stress management improvi sleep therapist identifying sponsor}} My Health To Do List {{go to [place] or call * si gn up for randolph text 2 quit or other stop smoking randolph contact [employer]}} {{go to [place] or call sig n up for randolph text 2 quit or other stop smoking randolph contact [employer]}} {{go to [place] or call sig n up for randolph text 2 quit or other stop smoking randolph contact [employer]}} [email or web address] Not available 08/13/2017 12:19:04 Reason for Referral General Office Assistant Referral for Pain in toe Referring Physician: Melba Springer, Family Medicine, Encounter Date: 07/29/2017 Results Created Date Observation Date Name Description Value Unit Range Abnormal Flag Note LastModifiedBy Organization Detail LastModifiedTime 02/22/20 16 02/22/2016 CBC WBC 4.7 K/??L 4.2-9. 1 Not Available [address], [address], 02/22/2016 15:10:48 02/22/20 16 02/22/2016 CBC RBC 4.32 M/??L 4.63-6 .08 low Not Available [address], [address], 02/22/2016 15:10:48 02/22/20 16 02/22/2016 CBC HGB 14.2 g/dL 13.7-1 7.5 Not Available [address], [address], 02/22/2016 15:10:48 02/22/20 16 02/22/2016 CBC HCT 41.4 % 40.1-5 1.0 Not Available [address], [address], 02/22/2016 15:10:48 02/22/20 16 02/22/2016 CBC MCV 95.8 ??L 79.0-9 2.2 high Not Available [address], [address], 02/22/2016 15:10:48 02/22/20 16 02/22/2016 CBC MCH 32.9 pg 25.7-3 2.2 high Not Available [address], [address], 02/22/2016 15:10:48 02/22/20 16 02/22/2016 CBC MCHC 34.3 g/dL 32.3-3 6.5 Not Available [address], [address], 02/22/2016 15:10:48 02/22/20 16 02/22/2016 CBC plt 198.0 K/??L 163.0- 337.0 Not Available [address], [address], 02/22/2016 15:10:48 02/22/20 16 02/22/2016 CBC MPV 10.9 9.4-12 .4 Not Available [address], [address], 02/22/2016 15:10:48 02/22/20 16 02/22/2016 CBC neut% 60.2 % 34.0-6 7.9 Not Available [address], [address], 02/22/2016 15:10:48 02/22/20 16 02/22/2016 CBC neut# 2.9 1.8-5. 4 Not Available [address], [address], 02/22/2016 15:10:48 02/22/20 16 02/22/2016 CBC lymph % 24.3 % 21.8-5 3.1 Not Available [address], [address], 02/22/2016 15:10:48 02/22/20 16 02/22/2016 CBC lymph # 1.2 K/??L 1.3-3. 6 low Not Available [address], [address], 02/22/2016 15:10:48 02/22/20 16 02/22/2016 CBC mono% 10.6 % 5.3-12 .2 Not Available [address], [address], 02/22/2016 15:10:48 02/22/20 16 02/22/2016 CBC mono# 0.5 0.3-0. 8 Not Available [address], [address], 02/22/2016 15:10:48 02/22/20 16 02/22/2016 CBC eo% 3.2 % 0.8-7. 0 Not Available [address], [address], 02/22/2016 15:10:48 02/22/20 16 02/22/2016 CBC eo# 0.2 0.0-0. 5 Not Available [address], [address], 02/22/2016 15:10:48 02/22/20 16 02/22/2016 CBC baso% 1.7 % 0.2-1. 2 high Not Available [address], [address], 02/22/2016 15:10:48 02/22/20 16 02/22/2016 CBC baso# 0.1 0.0-0. 1 high Not Available [address], [address], 02/22/2016 15:10:48 02/22/20 16 02/22/2016 CBC RDW-CV 12.3 % 11.6-1 4.4 Not Available [address], [address], 02/22/2016 15:10:48 02/22/20 16 02/22/2016 CMP, serum or plasm a glucose 105 mg/dL 70-100 high Not Available [address], [address], 02/22/2016 15:33:36 02/22/20 16 02/22/2016 CMP, serum or plasm a BUN 22 mg/dL 7-18 high Not Available [address], [address], 02/22/2016 15:33:36 02/22/20 16 02/22/2016 CMP, serum or plasm a creatinine 0.9 mg/dL 0.8-1. 3 Not Available [address], [address], 02/22/2016 15:33:36 02/22/20 16 02/22/2016 CMP, serum or plasm a B/C 24.4 ratio Not Available [address], [address], 02/22/2016 15:33:36 02/22/20 16 02/22/2016 CMP, serum or plasm a GFR -non 90.0 mL/mi n Recom vijay d GFR by the Natio nal Kidne y Found ation >60 mL/mi n/1.7 3m2 - Lynn l <60 mL/mi n/1.7 3m2 - Chron ic Kidne y Disea se <15 mL/mi n/1.7 3m2 - Kidne y Failu re Not Available [address], [address], 02/22/2016 15:33:36 02/22/20 16 02/22/2016 CMP, serum or plasm a GFR - if 108.9 mL/mi n For Afric an Ameri can patie nts: Resul ts Multi plied by 1.21 Not Available [address], [address], 02/22/2016 15:33:36 02/22/20 16 02/22/2016 CMP, serum or plasm a sodium 142 mmol/ L 136-14 5 Not Available [address], [address], 02/22/2016 15:33:36 02/22/20 16 02/22/2016 CMP, serum or plasm a potassium 4.6 mmol/ L 3.5-5. 1 Not Available [address], [address], 02/22/2016 15:33:36 02/22/20 16 02/22/2016 CMP, serum or plasm a chloride 106 mmol/ L 96-107 Not Available [address], [address], 02/22/2016 15:33:36 02/22/20 16 02/22/2016 CMP, serum or plasm a anion gap 8.3 5.0-15 .0 Not Available [address], [address], 02/22/2016 15:33:36 02/22/20 16 02/22/2016 CMP, serum or plasm a CO2 28 mmol/ L 21-32 Not Available [address], [address], 02/22/2016 15:33:36 02/22/20 16 02/22/2016 CMP, serum or plasm a calcium 8.5 mg/dL 8.5-10 .3 Not Available [address], [address], 02/22/2016 15:33:36 02/22/20 16 02/22/2016 CMP, serum or plasm a total protein 6.3 g/dL 6.4-8. 2 low Not Available [address], [address], 02/22/2016 15:33:36 02/22/20 16 02/22/2016 CMP, serum or plasm a albumin 3.7 g/dL 3.4-5. 0 Not Available [address], [address], 02/22/2016 15:33:36 02/22/20 16 02/22/2016 CMP, serum or plasm a globulin 2.6 g/dL Not Available [address], [address], 02/22/2016 15:33:36 02/22/20 16 02/22/2016 CMP, serum or plasm a A/G 1.4 ratio 0.8-2. 0 Not Available [address], [address], 02/22/2016 15:33:36 02/22/20 16 02/22/2016 CMP, serum or plasm a total bilirubin 0.40 mg/dL 0.00-1 .00 Not Available [address], [address], 02/22/2016 15:33:36 02/22/20 16 02/22/2016 CMP, serum or plasm a AST 11 U/L 15-37 low Not Available [address], [address], 02/22/2016 15:33:36 02/22/20 16 02/22/2016 CMP, serum or plasm a ALT 16 U/L 30-65 low Not Available [address], [address], 02/22/2016 15:33:36 02/22/20 16 02/22/2016 CMP, serum or plasm a alk. phos. 73 U/L 50-136 Not Available [address], [address], 02/22/2016 15:33:36 02/22/20 16 02/23/2016 TSH, serum or plasm a TSH 1.38 uIU/m L 0.50-6 .00 The Ameri can Colle ge of Endoc rinol ogy and Ameri can Thyro id Assoc iatio n recom mend goal TSH value s betwe en 0.4-4 .0 mIU/m L. Not Available [address], [address], 02/23/2016 10:09:46 02/22/20 16 02/23/2016 lyme disea se igg+i gm Ab, serum borrelia burgdorferi Ab 0.10 <0.90 <=0.9 0 - Negat sharon 0.91 - 1.09 - Equiv ocal >=1.1 0 - Posit sharon Not Available [address], [address], 02/23/2016 14:13:14 03/15/20 16 03/15/2016 ESR (eryt hrocy te sedim entat ion rate) , blood sed rate 1.0 0.0-20 .0 Not Available [address], [address], 03/15/2016 16:07:12 03/15/20 16 03/15/2016 C-kennedy ctive prote in, quant itati ve, serum or plasm a C-reactive protein -quant <2.0 mg/L 0.0-9. 0 < Not Available [address], [address], 03/15/2016 16:41:28 03/15/20 16 03/16/2016 lipid panel , serum cholesterol 202 mg/dL <200 mg/dl Maggie able 200-2 39 mg/dl Borde rline High >240 mg/dl High Not Available [address], [address], 03/16/2016 08:12:50 03/15/20 16 03/16/2016 lipid panel , serum triglyceride s 78 mg/dL <150 mg/dL Lynn l 150-1 99 mg/dL Borde rline High 200-4 99 mg/dL High >500 mg/dL Very High Not Available [address], [address], 03/16/2016 08:12:50 03/15/20 16 03/16/2016 lipid panel , serum direct HDL 76 mg/dL Not Available [address], [address], 03/16/2016 08:12:50 03/15/20 16 03/16/2016 LDL, calcu lated , serum (OBS) LDL - calculated 110.4 RISK CATEG ORY LDL GOAL _ CHD or CHD Risk Equiv alent s <100 mg/dl (10-y ear risk >20%) 2+ Risk Facto rs <130 mg/dl (10-y ear risk <= 20%) 0-1 Risk Facto r??? <160 mg/dl ??? Almos t all peopl e with 0-1 risk facto r have a 10 year risk <10%, thus 10 year risk asses ment in peopl e with 0-1 risk facto r is not neces ava. Not Available [address], [place], [address], 03/16/2016 08:12:50 03/15/20 16 03/16/2016 tb (M tuber culos is), ifn-g luciano domenico , blood quantiferon( R)-TB gold NEGATI VE negati ve normal Negat sharon test resul t. M. tuber culos is compl ex infec tion unlik hernan. Not Available [facility] [address], [address], 03/16/2016 21:54:36 03/15/20 16 03/16/2016 tb (M tuber culos is), ifn-g luciano domenico , blood nil 0.03 IU/mL normal Not Available [facility] [address], [address], 03/16/2016 21:54:36 03/15/20 16 03/16/2016 tb (M tuber culos is), ifn-g luciano domenico , blood mitogen-nil >10.00 IU/mL normal Not Available [facility] [address], [address], 03/16/2016 21:54:36 03/15/20 16 03/16/2016 tb (M atif syedos is), ifn-g luciano domenico , blood TB-nil 0.01 IU/mL normal The Nil tube value is used to deter mine if the patie nt has a preex istin g immun e respo nse which could cause a false -posi tive readi ng on the test. In order for a test to be valid , the Nil tube must have a value of less than or equal to 8.0 IU/mL . The mitog en contr ol tube is used to assur e the patie nt has a healt hy immun e statu s and also serve s as a contr ol for corre ct blood handl ing and incub ation . It is used to detec t false -nega tive readi ngs. The mitog en tube must have a gamma inter feron value of great er than or equal to 0.5 IU/mL highe r than the value of the Nil tube. The TB antig en tube is coate d with the M. atif syedos is speci fic antig ens. For a test to be consi dered posit sharon, the TB antig en tube value minus the Nil tube value must be great er than or equal to 0.35 IU/mL . For addit ional infor elsy jim e refer to http: //hcico renteria.que stdia gnost ics.c om/fa q/QFT (This link is being provi ded for infor ltio leija/ educa aly l purpo ses only. ) Not Available [facility] [address] [place] [address] Rakes[address], [place], [address], 03/16/2016 21:54:36 02/22/20 16 02/22/2016 x-ray , chest OBSERV ATION: Chest 2 views Smoker with fatigu e and worsen ing cough Compar april 2013 and 2013 Chroni c inters titial promin ence is presen t typica l of smoker 's lung. 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 [facility] Frederica [address] [facility] [address], [place], [address], 03/06/2016 19:21:01 Result Notes None recorded. Problems Name Problem SNOMED Code Status Onset Date Resolution Date Notes Provider Name and Address Organization Details Recorded Time [facility]ence [facility] 5 10:36:58 Injury of finger 24389250 Completed 200009/09/2013 Not Available [facility] 3 02:03:42 Presbyopia 27893432 Completed 200608/13/2017 Lucina Vo MD [address] [place] [address], [address] , [facility] 7 10:46:44 Cough 73099937 Completed 200209/09/2013 Not Available [facility] 3 02:01:05 Hordeolum 122342531 Completed 200209/09/2013 Not Available [facility] 3 02:03:42 Enthesopat hy of wrist AND/OR carpus 45156690 Completed 200009/09/2013 Not Available [facility] 3 02:03:35 Kidney stone 74740519 Completed 200508/13/2017 Lucina Vo MD [address] [place] [address], [address] , [facility] 7 10:46:56 Raynaud's disease 676545586 Active 2002 Not Available [facility] 3 03:06:14 Tobacco user 725525878 Active 2002 DILIP Todd [address] [place] [address], [address] , [facility] 6 10:36:20 Rosacea 696745997 Active 2003 Not Available [facility] 3 03:06:14 Hypermetro azar 23746044 Completed 200608/13/2017 Lucina Vo MD [address] [place] [address], [address] , [facility] 7 10:46:34 Atopic dermatitis 83391369 Active 2003 Not Available [facility] 3 03:06:14 Hyperplasi a of prostate 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 Active 2000 Not Available [facility] 3 03:06:14 Benign neoplasm of large intestine 48055431 Completed 200508/13/2017 Lucina Vo MD [address] [place] [address], [address] , [facility] 7 10:46:53 Hearing loss 70646048 Active Not Available [facility] 3 03:06:14 Acne 43716620 Completed 200408/13/2017 Lucina Vo MD [address] [place] [address], [address] , [facility] 7 10:46:21 Low back pain 274022650 Active 2005 Not Available [facility] 3 03:06:14 Dysuria 18743736 Completed 09/09/2013 Not Available [facility] 3 02:01:59 Disorder of lower limb 176880096 Completed 200109/09/2013 Not Available [facility] 3 02:03:21 Pain in wrist 24878448 Completed 200009/09/2013 Not Available [facility] 3 02:02:22 Backache 975776804 Completed 200509/09/2013 Not Available [facility] 3 02:01:11 Pain in limb 31589609 Completed 200009/09/2013 [facility] Available [facility] 3 02:00:52 Problem Notes None recorded. Procedures Surgical History Date Name Laterality Status Provider Name and Address Organization Details Recorded Time 7 Smoking cessation counseling completed Nina Solano Clementina [facility] 08/13/2017 10:30:00 7 Medicare Wellness Visit completed Nina Solano [facility] 08/13/2017 10:24:12 7 Carbon Monoxide Testing completed Nina Solano [facility] 08/13/2017 10:30:00 7 Smoking cessation counseling completed DILIP Todd [address] [place] [address], [address], [facility] 07/29/2017 15:12:41 7 Carbon Monoxide Testing completed DILIP Todd [address] [place] [address], [address], [facility] 07/29/2017 15:12:41 6 Smoking cessation counseling completed [facility]uly [facility] 02/22/2016 10:04:22 4 Smoking cessation counseling cancelled Estela Ralph LPN [facility] 06/30/2014 16:37:00 3 Smoking cessation counseling completed Estela Small [facility] 04/02/2013 15:19:49 1 Smoking cessation counseling completed [facility] 06/05/2011 15:30:24 0 Shoulder (Left) Injection completed Kerwin Springer MD [address] [place] [address], [address], [facility] 05/23/2010 20:53:41 6 Hernia Repair completed Chaitanya Parr MD [address] [place] [address], [address], [facility] 07/14/2014 08:55:13 Imaging Results Imaging Date Name Status LastModified by [facility] Details LastModified Time 02/22/2016 x-ray, chest completed [facility] [address], [place], [address], 02/22/2016 15:33:56 02/27/2016 CT, lung completed [facility] [address] [facility] [address], [place], [address], 03/06/2016 19:21:01 Procedure Notes None recorded. Medical Equipment None Reported. Allergies Allergen ID Allergen Name Allergen Category Reaction Reaction Severity Criticality Documentation Date Start Date Code Code System Note Provider Name and Address Organization Details Recorded Time 44130 Product containin g penicilli n and antibioti c (product) medicatio n Not available Not available Not available 05/11/2010 64960 05 SNOMED Not Available [facility] 1 06:05:41 Medications Name Sig Start Date Stop Date Status Note LastModified by Organization Details LastModified Time bupropion HCl SR 150 mg tablet,12 hr sustained-r elease take 1 tablet by mouth every morning for 3 days then twice a day TAKE LAST DOSE BEFORE SUPPER active Not Available Not Available No t Available azithromyci n 250 mg tablet take 2 tablets by mouth on day 1 then 1 tablet on days 2 through 5 active Not Available Not Available No t Available Vicodin 5 mg-500 mg tablet Take 1 tablet every 4 hours by oral route as needed. 2009 active Not Available Not Available Not Avai lable Nicotrol 10 mg inhalation cartridge Inhale by inhalatio n route every 1-2 hours prn. 07/29 completed Not Available Not Available Not Available erythromyci n 5 mg/gram (0.5 %) eye ointment Apply 1 applicati on 3 times a day by ophthalmi c route for 7 days. 08/13 completed Not Available Not Available Not Available nicotine 21 mg/24 hr daily transdermal patch APPLY 1 PATCH TOPICALLY DAILY active Not Available Not Available No t Available codeine 10 mg-guaifene sin 100 mg/5 mL Syrup Take 10 mL every 4 hours by oral route. 2013 active Not Available Not Available Not Avai lable Viagra 100 mg tablet Take 1 tablet every day by oral route. 2011 active Not Available Not Available Not Avai lable cefuroxime axetil 500 mg tablet 07/29 completed Not Available Not Available Not Available Percocet 5 mg-325 mg tablet Take 1 tablet every 6 hours by oral route for 10 days. 06/01 completed Not Available Not Available Not Available nicotine 7 mg/24 hr daily transdermal patch UNW AND RANDOLPH 1 PA TO SKIN D 07/29 completed Not Available Not Available Not Available nicotine (polacrilex ) 4 mg buccal lozenge DISSOLVE 1 LOZENGE IN THE MOUTH EVERY 1-2 HOURS active Not Available Not Available No t Available Cialis 20 mg tablet TK 10/24 TO 10/22 T PO 1 HOUR PRIOR TO SEXUAL INTERCOUR SE 2016 active Not Available Not Available Not Avai lable Vitals Date Recorded Body height Provider Name an d Address Organization Details Last Updated DateTime 07/29/2017 173.36 cm Zuly Gardnre MA [facility] 07/29/2017 14:30:50 Date Recorded Body mass index (BMI) Body weight Provider Name and Address Organization Details Last Updated DateTime 07/29/2017 22.8 kg/m2 73174.85 g Zuly [facility] 07/29/2017 14:35:34 Date Recorded Heart rate Provider Name an d Address Organization Details Last Updated DateTime 07/29/2017 72 /min Zuly Gardner MA [facility] 07/29/2017 14:36:09 Date Recorded Body temperature Provider Name a nd Address Organization Details Last Updated DateTime 07/29/2017 98 [degF] Zuly Gardner MA [facility] 07/29/2017 14:37:47 Date Recorded Body height Provider Name an d Address Organization Details Last Updated DateTime 08/07/2017 173.36 cm Moon Soria MA [facility] 08/07/2017 09:00:22 Date Recorded Body height Provider Name an d Address Organization Details Last Updated DateTime 08/13/2017 172.21 cm Nina Solano Clementina [facility] 08/13/2017 10:26:27 Date Recorded Body mass index (BMI) Body weight Provider Name and Address Organization Details Last Updated DateTime 08/13/2017 22.5 kg/m2 87813.[address] [facility] 08/13/2017 10:26:04 Date Recorded Heart rate Provider Name an d Address Organization Details Last Updated DateTime 08/13/2017 70 /min LYNDON Hammer [facility] 08/13/2017 10:27:00 Date Recorded Oxygen saturation Oxygen saturation in Arterial blood by Pulse oximetry Provider Name and Address Organization Details Last Updated DateTime 08/13/2017 97 % 97 % LYNDON Hammer [facility] 08/13/2017 10:27:05 Date Recorded Body height Body mass index (BMI) Body weight Provider Name and Address Organization Details Last Updated DateTime 07/14/2014 173.355 cm 22.2 kg/m2 01945.0783 9 g Adriana [facility] 07/14/2014 08:35:43 Date Recorded Body weight Body mass index (BMI) Body height Provider Name and Address Organization Details Last Updated DateTime 02/22/2016 83175.35818 6 g 23 kg/m2 173.355 cm Zuly [facility] 02/22/2016 10:00:26 Date Recorded Body temperature Heart rate Systolic blood pressure Diastolic blood pressure Provider Name and Address Organization Details Last Updated DateTime 02/22/2016 97.8 [degF] 68 /min 126 mm[Hg] 80 mm[Hg] [facility] 02/22/2016 10:04:22 Date Recorded Oxygen saturation Oxygen saturation in Arterial blood by Pulse oximetry Provider Name and Address Organization Details Last Updated DateTime 02/22/2016 97 % 97 % DILIP Todd [address] [place] [address], [phone] 02/22/2016 10:33:23 Date Recorded Systolic blood pressure Diastolic blood pressure Provider Name and Address Organization Details Last Updated DateTime 07/29/2017 120 mm[Hg] 66 mm[Hg] Zuly [facility] 07/29/2017 14:36:58 Date Recorded Systolic blood pressure Diastolic blood pressure Provider Name and Address Organization Details Last Updated DateTime 08/07/2017 118 mm[Hg] 80 mm[Hg] Moon [facility] 08/07/2017 09:01:41 Date Recorded Systolic blood pressure Diastolic blood pressure Provider Name and Address Organization Details Last Updated DateTime 08/13/2017 106 mm[Hg] 60 mm[Hg] Nina Solano LYNDON [facility] 08/13/2017 10:34:01 Date Recorded Systolic blood pressure Diastolic blood pressure Provider Name and Address Organization Details Last Updated DateTime 07/14/2014 130 mm[Hg] 82 mm[Hg] Adriana Rosa MA [facility] 07/14/2014 08:40:14 Social History Question Answer Notes LastModified by Organizat ion Details LastModified Time Tobacco Smoking Status Current Every Day Smoker couple ciggs daily 10..17 3 cigs QD 08/13/17 [facility] 10:01:40 What Is Your Level Of Alcohol Consumption? Moderate Information not available 08/13/2017 Do You Wear A Helmet When Biking? No Information not available 08/13/2017 Are You Blind Or Do You Have Difficulty Seeing? No Information not available 07/14/2014 What Is Your Level Of Caffeine Consumption? Moderate Information not available 07/14/2014 How Much Tobacco Do You Chew? None [email or web address] Information not available 04/02/2013 Are You Deaf Or Do You Have Serious Difficulty Hearing? Yes Information not available 07/14/2014 What Type Of Diet Are You Following? REGULAR Information not available 07/14/2014 Which Illicit Or Recreational Drugs Have You Used? 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 0 Information not available 07/14/2014 Are There Any Guns Present In Your Home? Yes Hvac Project Manager In [place] Information not available 07/14/2014 Live Alone Or With Others? With Others Information not available 06/30/2014 Does The Patient Have Difficulty Speaking Peruvian? No Information not available 06/30/2014 Does The Patient Have Difficulty Reading Peruvian? No [email or web address] Information not available 06/30/2014 Patient Has Health Care Proxy Signed And In Chart No [email or web address] Information not available 08/11/2018 Transgender No Information not available 08/13/2017 Marital Status Micaela Since 1973 Information not available 08/13/2017 Mosquito Repellent Used Routinely No Information not available 07/14/2014 What Was The Date Of Your Most Recent Tobacco Screening? 08/13/2017 Information not available 05/13/2019 How Many Children Do You Have? 3 Chen 1977, Ruslan 1979, Roseline 1980 Information not available 08/13/2017 Seat Belts Used Routinely Yes Information not available 07/14/2014 Are You Sexually Active? Yes Information not available 07/14/2014 Smoke Alarm In Home Yes Information not available 07/14/2014 At What Age Did You Start Smoking Tobacco? 15 [email or web address] Information not available 06/30/2014 General Stress Level Medium Information not available 08/13/2017 Do You Use Sunscreen Routinely? Yes Information not available 07/14/2014 Sex: Unknown Functional Status Question Answer Note LastModified by Organization D etails LastModified Time Do you have difficulty walking or climbing stairs? No Information not available 07/14/2014 Do you have difficulty doing errands alone? No Information not available 07/14/2014 Do you have difficulty dressing or bathing? No Information not available 07/14/2014 Mental Status Question Answer Note LastModified by Organizat ion Details LastModified Time Do you have difficulty concentrating, remembering or making decisions? No Information n ot available 07/14/2014 Family History Relationship Description Onset Age of this Age Resolved Age Notes LastModified by Organization Details LastModified Time Father Myocardial infarction 80 [email or web address] Not available 07/14 08:47:21 Father Malignant tumor of pancreas fkim Not available 2013 08:47:21 Sister Malignant tumor of breast fkim Not available 2013 08:47:21 Medical History No medical history recorded. Immunizations Vaccine Type Date Status Note Provider Nam e and Address Organization Details Recorded Time Td(adult) unspecified formulation 2 completed Not Available [facility] 09/05/2011 05:20:34 Past Encounters Encounter ID Performer Location Encounter Start Date Encounter Closed Date Diagnosis/Indication Diagnosis SNOMED-CT Code Diagnosis ICD10 Code Diagnosis Note [id number] [facility], OFFICE [address] [place] [address] 01/06/2001 13:45:00 11/10/2008 02:02:29 [id number] [facility], OFFICE [address] [place] [address] 01/20/2001 10:45:00 11/10/2008 02:02:29 [id number] [facility], OFFICE [address] [place] [address] 05/02/2001 15:00:00 11/10/2008 02:02:29 [id number] Radiology , [address] [address] 05/02/2001 15:15:00 11/10/2008 02:02:29 [id number] Physical Therapy, [address] [address] 06/20/2001 12:30:00 11/10/2008 02:02:29 [id number] [facility], OFFICE [address] [place] [address] 08/24/2002 08:51:40 11/10/2008 02:02:[id number] [address] 09/30/2002 18:23:57 11/10/2008 02:02:29 [id number] [facility], OFFICE [address] [place] [address] 12/16/2002 14:05:49 11/10/2008 02:02:29 [id number] [facility], OFFICE [address] [place] [address] 01/22/2003 14:39:02 11/10/2008 02:02:[id number] [address] 11/09/2003 15:37:02 11/09/2003 16:49:12 [id number] LAB - [address] [address] 01/03/2004 14:48:39 01/03/2004 14:48:55 [id number] Radiology , [facility] [address] [place] [address] 01/03/2004 14:47:01 01/03/2004 14:47:21 [id number] FP, [facility], OFFICE [address] [facility] [place] [address] 01/03/2004 13:55:09 01/04/2004 10:39:20 [id number] FP, [facility], OFFICE [address] [facility] [place] [address] 10/19/2004 15:58:41 10/21/2004 09:14:24 [id number] FP, [facility], OFFICE [address] [facility] [place] [address] 01/31/2005 14:55:15 02/01/2005 10:11:24 [id number] FP, [facility], OFFICE [address] [facility] [address] [place] [address] 02/14/2005 15:19:33 11/10/2008 02:02:29 [id number] , [facility], OFFICE [address] [facility] [place] [address] 10/30/2005 11:56:25 11/10/2008 02:02:29 [id number] , [facility], OFFICE [address] [facility] [place] [address] 01/01/2006 11:12:37 11/10/2008 02:02:29 [id number] Radiology , [facility] [address] [facility] [place] [address] 01/01/2006 11:51:20 01/02/2006 09:28:40 [id number] Radiology , [facility] [address] [place] [address] 01/01/2006 00:00:00 11/10/2008 02:02:29 [id number] Radiology , [facility] [address] [facility] [place] [address] 01/21/2006 14:07:15 01/22/2006 08:47:47 [id number] Radiology , [facility] [address] [place] [address] 01/21/2006 00:00:00 11/10/2008 02:02:29 [id number] [facility] [address] [place] [address] 02/11/2006 09:19:52 02/13/2006 08:48:17 [id number] FP, [facility], OFFICE [address] [facility] [address] 01/01/2006 00:00:00 11/10/2008 02:02:29 [id number] [facility], OFFICE [address] [place] [address] 04/03/2007 14:38:17 04/04/2007 11:41:33 [id number] [facility], [facility] [address] [place] [address] 09/05/2007 12:42:18 09/05/2007 16:54:06 [id number] [facility], OFFICE [address] [place] [address] 05/11/2010 11:34:55 05/15/2010 10:30:11 [id number] [facility], OFF[address] [place] [address] 05/18/2010 14:21:14 05/29/2010 14:26:54 [id number] [facility] , [facility] [address] [place] [address] 05/18/2010 14:52:45 05/19/2010 14:34:19 [id number] [facility], OFFICE [address] [place] [address] 06/05/2011 15:08:04 06/06/2011 10:21:59 [id number] Fatemeh Tejeda MA [facility], OFFICE [address] [place] [address] 02/01/2012 15:45:01 02/01/2012 16:18:12 [id number] Fatemeh Tejeda MA [facility], OFFICE [address] [place] [address] 04/02/2013 14:50:32 04/03/2013 10:56:06 [id number] Fatemeh Tejeda MA [facility], OFFICE [address] [place] [address] 11/16/2013 14:51:51 11/17/2013 09:32:30 Pneumonia 957682414 f/u in 2 months for repeat cxr. call if not better Tobacco user [id number] n icotine replacemen t products urged. Acute bronchitis 01817649 rest, hot liquids,hu midify air, call if worse [id number] Estela Ralph LPN [facility], OFF[address] [place] [address] 12/23/2013 15:19:16 12/23/2013 15:50:11 Tobacco user [id number] since nicotime replacemen t didn't work for him. try welbbutrin take for 7 weeks . stopsmokin g after one week. s/e explained Pneumonia 900658592 CXR- negative pneumonia resolved [id number] Shara Hernandez , [facility], OFF[address] [place] [address] 07/14/2014 08:20:23 07/14/2014 09:02:56 Adult health examination 539071624 See Risk Assessment and Lifestyle Change Counseling section. Colonoscop y UTD (01/2006). Needs 10-year surveillan ce. Patient refuses Td and Influenza vaccines. Seat belt safety also discussed. Check FLP and Glucose. Counseling [id number] DILIP Todd , [facility], OFF[address] [place] [address] 02/22/2016 09:43:11 02/22/2016 11:07:05 Nicotine dependence 27598888 Z87.891 Tobacco user 140487751 Z 72.0 Fatigue 36434223 R53.83 Cough 56890368 R05 Dyspnea 921196577 R06.00 Joint pain 14472294 M25. 50 [id number] DILIP Todd , [facility], OFF[address] [place] [address] 07/29/2017 14:13:08 07/29/2017 15:16:35 Blepharitis 25184793 H01.9 Pain in toe 964293984 M7 9.675 Cigarette smoker 3010768 7 F17.210 will use hydrocorti sone before applying patch to decrease irritation of skin Tobacco user 526366395 Z 72.0 [id number] Ailin Izaguirre DPM Podiatry, [facility] [address] [place] [address] 08/07/2017 08:47:11 08/07/2017 09:20:44 Tobacco user 214619895 Z72.0 Pain in toe 852810844 M7 9.675 Pronation of foot 228437 03 M21.6X9 [id number] Lucina Vo MD , [facility], OFF[address] [place] [address] 08/13/2017 10:18:57 08/13/2017 11:04:31 Adult health examination 130577030 Z00.00 see Risk Assessment and Lifestyle Change Counseling section above Counseling 303602379 Z71 .9 Cigarette smoker 9982055 7 F17.210 actively cutting backlozeng es helpfuldow n to 3-4 a daypartner closet smoker with himgoal to quit together, perhaps after half-way cousneling /support ed today Tobacco user 782799418 Z 72.0 Hearing loss 50079100 H9 0.6 has hearing aides and follows with audiologis t regularly Impotence 876070508 N52. 9 has effect with drug but it is expensive for him Rosacea 266603335 L71.9 sx well managed with avoidance of triggers Low back pain 315533784 M54.5 intermitte nt, not active issuemanag es as needed with exercise, activity changes, occ OTC medication s Screening for disorder 103200838 Z11.59 Screening for malignant neoplasm of colon 369961499 Z12.11 Referral for a DIRECT booked colonoscop y. This patient is a healthy ASA Class 1 or 2 patient (only mild systemic disease), or a STABLE, well controlled insulin dependent diabetic. They do not have serious cardiac disease ie DE/angiopl asty within 1 year, symptomati c CHF; renal failure with CKD 4 or 5; take Coumadin, Plavix, Aggrenox, etc. Health Concerns Section Related Observation LastModified by Organization Detai ls LastModified Time None Recorded Concern Status LastModified by Organization Details LastModified Time None Recorded Advance Directives Directive None Recorded Payers Encounter Date Sequence Insurance Name Policy Number Policy Melgar Covered Member ID Melgar Member ID Guarantor Name 07/14/2014 1 [place] [facility] (PPO) [id number] Ruslan Huertas [id number] Ruslan Huertas 02/22/2016 1 [employer] (PPO) Ruslan Huertas [id number] Ruslan Huertas 07/29/2017 1 [facility] [id number] Ruslan Huertas [id number] Ruslan Huertas 08/07/2017 1 [facility] [id number] Ruslan Huertas [id number] Ruslan Huertas 08/13/2017 1 [facility] [id number] Ruslan Huertas [id number] Ruslan Huertas Notes Date Note Type Note Provider Name and Address Organization Details Recorded Time 07/14/2014 text/html Patient who is overall healthy here for a PHA visit. Bilateral hearing loss. Scheduled to have hearing aid fitting. Otherwise doing well. Denies F/C/N/V/D. Denies abdominal pain. Denies dysuria or hematuria. 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 Chaitanya Parr MD [address] [place] [address], [phone], [facility] 07/14/2014 23:29:24 02/22/2016 text/html a/vmg-smoking [id number] bypatient.Importance On a scale of 1-10 with 1 being not important and 10 being very important the patient rates importance of stopping smoking as 10 Physiological Dependence/Health RiskCurrently smoking 20 cigarettes per dayNotes:fatigue x 6 wks, sleeping 10 hrs/hs, body aches- shouler pain and muscle cramps. has had pmh cshoulder injury with injections in past. nutrtion regular, wt stable. increase stress. ROS- no headahces, smoke 1ppd, some sob, cough, no chest pain, urianry hesitancy- chronic. DILIP Todd [address] [place] [address], [phone], [facility] 02/25/2016 09:43:42 07/29/2017 text/html a/vmg-smoking [email or web address] bypatient.Importance On a scale of 1-10 with 1 being not important and 10 being very important the patient rates importance of stopping smoking as ; important to quit= has copd Physiological Dependence/Health Hlfo0xmab /dayNotes:uses patch but had rx left footpain x > 1 yr, flares with use on uneven terrain, agg with playing golf. left eye lump upper lid- no drINAGE. NO PAIN, DILIP Todd [address] [place] [address], [phone], [facility] 07/30/2017 15:21:29 08/07/2017 text/html Patient presents to the office complaining of pain in the middle toe of his left foot. Patient states he has been experiencing pain with increased activity especially on irregular terrain for a long time. Patient has not noticed any swelling or discoloration. Ailin Izaguirre DPM [address] [place] [address], [phone], [facility] 08/07/2017 09:40:15 08/13/2017 text/html Physical Exam/MaleReported bypatient.PHAPatient is here for a Wellness Visit. He describes his health status as good. Patient's health is worse than last year.Risk Assessment and Lifestyle Change Counseling 65+ (Medicare)Reported bypatient.Safety Risk Assessment:Do you feel safe in your current relationship?YES; Have you ever been a victim of physical/emotional/s exual abuse?NO Functional Status:Patient has trouble hearing the television or radio when others do not.;Patient has to strain or struggle to hear/understand conversations.; Patient does not need help with preparing meals, transportation, shopping, taking medicine, managing finances, or other activities of daily living.; Patient does not have visual loss that interferes with daily activities; Does not live alone; Patient was not unsteady and did not take longer than 30 seconds during the timed get up and go test.; Patient reports no falls in the past 6 months.; has hearing aides Diet:Counseled about appropriate portion size; Counseled about eating a diet low in trans and saturated fats and high in fiber, fruits and vegetables; Counseled about appropriate calcium intake and good dietary sources of calcium.; Counseled about the importance of maintaining a positive calcium balance and taking 1000 iu Vitamin D daily.; Counseled about decreasing carbohydrates; Discussed the value of a Mediterranean diet , and eating more fruits and vegetables Exercise counseling:Discussed the importance of daily physical activity; Discussed the importance of weight bearing exercise Safety:Counseled about protecting skin from the sun and lowering the risk of skin cancer; Counseled about avoiding excessive and unsafe alcohol intake; Counseled about use of helmets for high velocity activiities; Counseled about home safety including use of smoke detectors, CO detectors, keeping home water temperature less than 120; Counseled about use of seat belts; Counseled about fall risk from throw rugs and the need for hand rails on steps and in bathRisk Assessment and Lifestyle Change Counseling-male 50-64Reported bypatient.Coronary Artery Disease Risk Assessment:Family History of Coronary Artery Disease; Regular exercise program; Eats a diet low in fats and high in fiber; No personal history of hypertension; Lipids in good range; No personal history of diabetes;Uses tobacco; No history of peripheral vascular disease, AAA, or carotid disease; No personal history of coronary artery disease Colon Cancer Risk Assessment:No family history of colon polyps or cancer; No history of adenomatous colon polyps Lung Cancer Risk Assessment:Has used cigarettes Risk for Sexually transmitted disease Assessment:No history of sexually transmitted disease; Monogamous relationship Cognitive/Behavioral Risk Assessment:No history of depression; No family history of depression Safety Risk Assessment:does not use helmet for high velocity activcities;does not use seat belts(at times) Diet:Counseled about appropriate portion size; Counseled about eating a diet low in trans and saturated fats and high in fiber, fruits and vegetables; Discussed the value of a Mediterranean diet , and eating more fruits and vegetables Exercise counseling:Discussed the importance of daily physical activity; Discussed the importance of weight bearing exercise Safety:Counseled about use of seat belts Emergency Department and Urgent CareCounseled about appropriate use of the emergency room and availability of urgent care at [facility] [id number] bypatient.Importance On a scale of 1-10 with 1 being not important and 10 being very important the patient rates importance of stopping smoking as 10; important to quit= has copd Physiological Dependence/Health Risk3-4 cigs /day Medication AssessmentHas used Patch in the past; Has used lozenges in the past health goals:trying to quit smokingworking full timesmokes out of habitconcerns: Lucina Vo MD [address] [place] [address], [phone], [facility] 08/13/2017 12:20:04
== END 2024-11-19 16:16 | disposition home or self-care (01) ==
PROVIDERS: PCP Internal Medicine; Visit Provider Internal Medicine
DX: K62.5 Hemorrhage of anus and rectum (principal)

== ENCOUNTER → 2024-11-19 10:08 | Outpatient (BNVA) | payer MEDICARE, SELFPAY | PROVIDERS: PCP Internal Medicine; Visit Provider Internal Medicine | DX: K62.5 Hemorrhage of anus and rectum (principal) | CPT/HCPCS: 96127; 99212 ==

== ENCOUNTER 2024-11-24 08:45 | Day surgery (SDC) | payer MEDICARE, SELFPAY ==
--- NOTE | 2024-11-23 10:01 | HO.ANESPROP2 ---
HPI - Anesthesia Eval Consult details Narrative: 74yo M for Upper Endoscopy and Colonoscopy [facility] Active Problems Active Problems: All Active Problems Abnormal CT scan, colon (Acute) Chronic diarrhea (Acute) Lower urinary tract symptoms (Acute) Erectile dysfunction (Acute) BPH (benign prostatic hyperplasia) (Acute) Hordeolum externum (stye) (Acute) Weight loss (Acute) Diarrhea (Acute) Rectal bleeding (Acute) Family History Family History Mother Stroke Father Pancreatic cancer Heart disease Sister Breast cancer Surgical History Surgical History Hx of colonoscopy (~2019) History of hernia surgery Social History Social History Household Members: Spouse Housing: House Alcohol intake: current Alcohol intake frequency: 3 or more drinks per day Alcohol type: beer Patient Tobacco Use Status: Current everyday Tobacco user Tobacco use type: Cigarette Cigarette Packs Per Day: 0.5 Cigarettes Per Day: 10 e-Cigarette/Vaping Use: Never Used Second Hand Smoke Exposure: Yes service: No Current occupational status: employed 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
--- OUTSIDE RECORDS SUMMARY | 2024-11-24 08:59 | XMS_ITS | Data Portability ---
Author Organization [facility], , [facility] Address [address] [place] [address] Care Team Providers Care Center Sales And Service Associate Name Role Phone KERWIN SPRINGER Primary Care Provider MELBA SPRINEGR Primary Care Provider AILIN IZAGUIRRE Licensed Optician [facility] Chemical Processing Laborer CLAUDETTE MCLAIN Drum Filler Assessment Encounter Date Assessment Date Assessment LastModified by Organization Details LastModified Time 08/07/2017 08/07/2017 Metatarsalgia/ pain 3rd toe left foot, pes planovalgus deformity jerskine Not available 08/07/2017 09:39:25 Plan of Treatment Reminders Order Date Submit Date Provider Last Modified By Organization Details Last Modified Time Details Appointments None recorded. 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 Imaging x-ray, chest - smoker , with 6 wks fatigue- increasing cough. exam- decreased bs 2015 016 [facility] (Imaging), [address], [place], [address], 6 11:21:56 Medication Orders erythromyci n 5 mg/gram (0.5 %) eye ointment 2016 017 [id number], [address], [place], [id number], 7 10:26:41 Cialis 20 mg tablet 2016 017 [email or web address] [facility] #[id number], [address], [place], [id number], 7 10:59:07 Patient Targets Encounter Date Encounter Id Patient Goals Patient Target Last Modified By Organization Details Last Modified Time Smoking cessation, see notes above [email or web address] Not available 08/13/2017 10:53:04 Patient Instructions Encounter Date Encounter Id Patient Instructions Last Modified By Organization Details Last Modified Time 07/14/2014 [id number] Well Visit 50 to 65: Care Instructions fkim Not available 07/14/2014 23:29:23 02/22/2016 [id number] Quitting Tobacco : Care Instructions ashelkey Not [...] 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 id entiying sponsor}} {{# adding exercise regular meals 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 id [facility] sponsor}} {{# adding exercise regular meals 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 id [facility] sponsor}}My Health To Do List {{# go to [employer] or call sig n up for randolph text 2 quit or other stop smoking randolph contact [employer]}} {{# go to [employer] or call sig n up for randolph text 2 quit or other stop smoking randolph contact [employer]}} {{# go to [employer] or call sig n up for randolph text 2 quit or other stop smoking randolph contact [employer]gov}} ashelkey Not available 02/22/2016 10:04:22 07/29/2017 [id number] deciding about using medicines to quit smoking [...] sponsor}}My Health To Do List {{go to [employer] or call sig n up for randolph text 2 quit or other stop smoking randolph contact [employer]}} {{go to [employer] or call sig n up for randolph text 2 quit or other stop smoking randolph contact smokeEuro Card [place].gov}} {{go to [employer] Dot or call sig n up for randolph text 2 quit or other stop smoking randolph contact [employer]gov}} aesrick Not available 07/29/2017 15:12:41 08/07/2017 [id number] Patient states h e will pursue prefabricated [...] sponsor}}My Health To Do List {{go to [employer] Dot or call sig n up for randolph text 2 quit or other stop smoking randolph contact smokeEuro Card [place].gov}} {{go to [employer] Dot or call sig n up for randolph text 2 quit or other stop smoking randolph contact smoke[employer] Card [place].gov}} {{go to [employer] Dot or call sig n up for randolph text 2 quit or other stop smoking randolph contact smoke[employer] Card [place].gov}} Not available 08/07/2017 09:13:44 08/13/2017 [id number] deciding about using medicines to quit smoking [...] life expectancy. 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 He is enc to consider and call for appointment. Counseling done {{Patient not ready to quit Contemplating quitting Tapering Cigarettes* signed up for support prescripti on for stop smoking medication given}} {{Patient not ready to quit Contemplating quitting Tapering Cigarettes signed up for support prescripti on for stop smoking medication given}} Goal for follow up visit {{adding exercise* regular meals stress management impromartin 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 identifying sponsor}} {{adding exercise regular meals 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 identifying sponsor}} {{adding exercise regular meals 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 identifying sponsor}} My Health To Do List {{go to [employer] www[employer] or call * si gn up for randolph text 2 quit or other stop smoking randolph contact [employer]gov}} {{go to [employer] or call sig n up for randolph text 2 quit or other stop smoking randolph contact [employer]}} {{go to [employer] or call sig n up for randolph text 2 quit or other stop smoking randolph contact [employer]}} diamond Not available 08/13/2017 12:19:04 Reason for Referral Licensed Optician Referral for Pain in toe Referring Physician: Melba Springer, Family Medicine, Encounter Date: 07/29/2017 Results Created Date Observation Date Name Description Value Unit Range Abnormal Flag Note LastModifiedBy Organization Detail LastModifiedTime 02/22/20 16 02/22/2016 CBC WBC 4.7 K/??L 4.2-9. 1 Not Available [address], [address], 02/22/2016 15:10:48 02/22/20 16 02/22/2016 CBC RBC 4.32 M/??L 4.63-6 .08 low Not Available [address], [address], 02/22/2016 15:10:48 02/22/20 16 02/22/2016 CBC HGB 14.2 g/dL 13.7-1 7.5 Not Available [address], [address], 02/22/2016 15:10:48 02/22/20 16 02/22/2016 CBC HCT 41.4 % 40.1-5 1.0 Not Available [address], [address], 02/22/2016 15:10:48 02/22/20 16 02/22/2016 CBC MCV 95.8 ??L 79.0-9 2.2 high Not Available [address], [address], 02/22/2016 15:10:48 02/22/20 16 02/22/2016 CBC MCH 32.9 pg 25.7-3 2.2 high Not Available [address], [address], 02/22/2016 15:10:48 02/22/20 16 02/22/2016 CBC MCHC 34.3 g/dL 32.3-3 6.5 Not Available [address], [address], 02/22/2016 15:10:48 02/22/20 16 02/22/2016 CBC plt 198.0 K/??L 163.0- 337.0 Not Available [address], [address], 02/22/2016 15:10:48 02/22/20 16 02/22/2016 CBC MPV 10.9 9.4-12 .4 Not Available [address], [address], 02/22/2016 15:10:48 02/22/20 16 02/22/2016 CBC neut% 60.2 % 34.0-6 7.9 Not Available [address], [address], 02/22/2016 15:10:48 02/22/20 16 02/22/2016 CBC neut# 2.9 1.8-5. 4 Not Available [address], [address], 02/22/2016 15:10:48 02/22/20 16 02/22/2016 CBC lymph % 24.3 % 21.8-5 3.1 Not Available [address], [address], 02/22/2016 15:10:48 02/22/20 16 02/22/2016 CBC lymph # 1.2 K/??L 1.3-3. 6 low Not Available [address], [address], 02/22/2016 15:10:48 02/22/20 16 02/22/2016 CBC mono% 10.6 % 5.3-12 .2 Not Available [address], [address], 02/22/2016 15:10:48 02/22/20 16 02/22/2016 CBC mono# 0.5 0.3-0. 8 Not Available [address], [address], 02/22/2016 15:10:48 02/22/20 16 02/22/2016 CBC eo% 3.2 % 0.8-7. 0 Not Available [address], [address], 02/22/2016 15:10:48 02/22/20 16 02/22/2016 CBC eo# 0.2 0.0-0. 5 Not Available [address], [address], 02/22/2016 15:10:48 02/22/20 16 02/22/2016 CBC baso% 1.7 % 0.2-1. 2 high Not Available [address], [address], 02/22/2016 15:10:48 02/22/20 16 02/22/2016 CBC baso# 0.1 0.0-0. 1 high Not Available [address], [address], 02/22/2016 15:10:48 02/22/20 16 02/22/2016 CBC RDW-CV 12.3 % 11.6-1 4.4 Not Available [address], [address], 02/22/2016 15:10:48 02/22/20 16 02/22/2016 CMP, serum or plasm a glucose 105 mg/dL 70-100 high Not Available [address], [address], 02/22/2016 15:33:36 02/22/20 16 02/22/2016 CMP, serum or plasm a BUN 22 mg/dL 7-18 high Not Available [address], [address], 02/22/2016 15:33:36 02/22/20 16 02/22/2016 CMP, serum or plasm a creatinine 0.9 mg/dL 0.8-1. 3 Not Available [address], [address], 02/22/2016 15:33:36 02/22/20 16 02/22/2016 CMP, serum or plasm a B/C 24.4 ratio Not Available [address], [address], 02/22/2016 15:33:36 02/22/20 16 02/22/2016 CMP, serum or plasm a GFR -non 90.0 mL/mi n Recom vijay d GFR by the Natio nal Kidne y Found ation >60 mL/mi n/1.7 3m2 - Lynn l <60 mL/mi n/1.7 3m2 - Chron ic Kidne y Disea se <15 mL/mi n/1.7 3m2 - Kidne y Failu re Not Available [address], [address], 02/22/2016 15:33:36 02/22/20 16 02/22/2016 CMP, serum or plasm a GFR - if 108.9 mL/mi n For Afric an Ameri can patie nts: Resul ts Multi plied by 1.21 Not Available [address], [address], 02/22/2016 15:33:36 02/22/20 16 02/22/2016 CMP, serum or plasm a sodium 142 mmol/ L 136-14 5 Not Available [address], [address], 02/22/2016 15:33:36 02/22/20 16 02/22/2016 CMP, serum or plasm a potassium 4.6 mmol/ L 3.5-5. 1 Not Available [address], [address], 02/22/2016 15:33:36 02/22/20 16 02/22/2016 CMP, serum or plasm a chloride 106 mmol/ L 96-107 Not Available [address], [address], 02/22/2016 15:33:36 02/22/20 16 02/22/2016 CMP, serum or plasm a anion gap 8.3 5.0-15 .0 Not Available [address], [address], 02/22/2016 15:33:36 02/22/20 16 02/22/2016 CMP, serum or plasm a CO2 28 mmol/ L 21-32 Not Available [address], [address], 02/22/2016 15:33:36 02/22/20 16 02/22/2016 CMP, serum or plasm a calcium 8.5 mg/dL 8.5-10 .3 Not Available [address], [address], 02/22/2016 15:33:36 02/22/20 16 02/22/2016 CMP, serum or plasm a total protein 6.3 g/dL 6.4-8. 2 low Not Available [address], [address], 02/22/2016 15:33:36 02/22/20 16 02/22/2016 CMP, serum or plasm a albumin 3.7 g/dL 3.4-5. 0 Not Available [address], [address], 02/22/2016 15:33:36 02/22/20 16 02/22/2016 CMP, serum or plasm a globulin 2.6 g/dL Not Available [address], [address], 02/22/2016 15:33:36 02/22/20 16 02/22/2016 CMP, serum or plasm a A/G 1.4 ratio 0.8-2. 0 Not Available [address], [address], 02/22/2016 15:33:36 02/22/20 16 02/22/2016 CMP, serum or plasm a total bilirubin 0.40 mg/dL 0.00-1 .00 Not Available [address], [address], 02/22/2016 15:33:36 02/22/20 16 02/22/2016 CMP, serum or plasm a AST 11 U/L 15-37 low Not Available [address], [address], 02/22/2016 15:33:36 02/22/20 16 02/22/2016 CMP, serum or plasm a ALT 16 U/L 30-65 low Not Available [address], [address], 02/22/2016 15:33:36 02/22/20 16 02/22/2016 CMP, serum or plasm a alk. phos. 73 U/L 50-136 Not Available [address], [address], 02/22/2016 15:33:36 02/22/20 16 02/23/2016 TSH, serum or plasm a TSH 1.38 uIU/m L 0.50-6 .00 The Ameri can Colle ge of Endoc rinol ogy and Ameri can Thyro id Assoc iatio n recom mend goal TSH value s betwe en 0.4-4 .0 mIU/m L. Not Available [address], [address], 02/23/2016 10:09:46 02/22/20 16 02/23/2016 lyme disea se igg+i gm Ab, serum borrelia burgdorferi Ab 0.10 <0.90 <=0.9 0 - Negat sharon 0.91 - 1.09 - Equiv ocal >=1.1 0 - Posit sharon Not Available [address], [address], 02/23/2016 14:13:14 03/15/20 16 03/15/2016 ESR (eryt hrocy te sedim entat ion rate) , blood sed rate 1.0 0.0-20 .0 Not Available [address], [address], 03/15/2016 16:07:12 03/15/20 16 03/15/2016 C-kennedy ctive prote in, quant itati ve, serum or plasm a C-reactive protein -quant <2.0 mg/L 0.0-9. 0 < Not Available [address], [address], 03/15/2016 16:41:28 03/15/20 16 03/16/2016 lipid panel , serum cholesterol 202 mg/dL <200 mg/dl Maggie able 200-2 39 mg/dl Borde rline High >240 mg/dl High Not Available [address], [address], 03/16/2016 08:12:50 03/15/20 16 03/16/2016 lipid panel , serum triglyceride s 78 mg/dL <150 mg/dL Lynn l 150-1 99 mg/dL Borde rline High 200-4 99 mg/dL High >500 mg/dL Very High Not Available [address], [address], 03/16/2016 08:12:50 03/15/20 16 03/16/2016 lipid panel , serum direct HDL 76 mg/dL Not Available [address], [address], 03/16/2016 08:12:50 03/15/20 16 03/16/2016 LDL, catrachitou mandy , serum (OBS) LDL - calculated 110.4 [...] with 0-1 risk facto r is not donald escalante. Not Available [address], [place], [address], 03/16/2016 08:12:50 03/15/20 16 03/16/2016 tb (M tuber culos is), ifn-g luciaon domenico , blood quantiferon( R)-TB gold NEGATI VE negati ve normal Negat sharon test resul t. M. tuber culos is compl ex infec tion unlik hernan. Not Available [facility] [address], [address], 03/16/2016 21:54:36 03/15/20 16 03/16/2016 tb (M tuber culos is), ifn-g luciano domenico , blood nil 0.03 IU/mL normal Not Available [facility] [address], [address], 03/16/2016 21:54:36 03/15/20 16 03/16/2016 tb (M tuber culos is), ifn-g luciano domenico , blood mitogen-nil >10.00 IU/mL normal Not Available [facility] [address], [address], 03/16/2016 21:54:36 03/15/20 16 03/16/2016 tb (M tuber culos is), ifn-g luciano domenico , blood TB-nil [...] en tube is coate d with the Thomas puente is speci fic antig ens. For a test to be consi dered posit sharon, the TB antig en tube value minus the Nil tube value must be great er than or equal to 0.35 IU/mL . For addit ional infor lito renteria, plehuseyin e refer to http: //[facility] renteria.giovany stdia gnost ics.c om/fa q/QFT (This link is being provi ded for infor lito leija/ educa aly l purpo ses only. ) Not Available [facility] [address] [place] [address] B, [place], [address], 03/16/2016 21:54:36 02/22/20 16 02/22/2016 x-ray , [...] Ms.Esr ick Electr onical ly signed Shawnee rhodes: Werner Brown [facility] (Imaging) [address] , [place], [address], 02/22/2016 15:33:56 03/06/20 16 02/27/2016 CT, lung No observ ation record ed. [facility] [place] [address], [place], [address], 03/06/2016 19:21:01 Result Notes None recorded. Problems Name Problem SNOMED Code Status Onset Date Resolution Date Notes Provider Name and Address Organization Details Recorded Time [facility] 10:36[facility]58 Injury of finger 55751539 Completed 200009/09/2013 Not Available [facility] 3 02:03:42 Presbyopia 96881661 Completed 200608/13/2017 Lucina Vo MD [address] [place] [address], [address] , [facility] 7 10:46:44 Cough 75021872 Completed 200209/09/2013 Not Available [facility] 3 02:01:05 Hordeolum 602098111 Completed 200209/09/2013 Not Available [facility] 3 02:03:42 Enthesopat hy of wrist AND/OR carpus 94985196 Completed 200009/09/2013 Not Available [facility] 3 02:03:35 Kidney stone 15593261 Completed 200508/13/2017 Lucina Vo MD [address] [place] [address], [address] , [facility] 7 10:46:56 Raynaud's disease 283611975 Active 2002 Not Available [facility] 3 03:06:14 Tobacco user 207721998 Active 2002 DILIP Todd [address] [place] [address], [address] , [facility] 6 10:36:20 Rosacea 184253423 Active 2003 Not Available [facility] 3 03:06:14 Hypermetro azar 01906418 Completed 200608/13/2017 Lucina Vo MD [address] [place] [address], [address] , [facility] 7 10:46:34 Atopic dermatitis 98891168 Active 2003 Not Available [facility] 3 03:06:14 Hyperplasi a of prostate 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 Active 2000 Not Available [facility] 3 03:06:14 Benign neoplasm of large intestine 19849316 Completed 200508/13/2017 Lucina Vo MD [address] [place] [address], [address] , [facility] 7 10:46:53 Hearing loss 28608998 Active Not Available [facility] 3 03:06:14 Acne 03764932 Completed 200408/13/2017 Lucina Vo MD [address] [place] [address], [address] , [facility] 7 10:46:21 Low back pain 885924225 Active 2005 Not Available [facility] 3 03:06:14 Dysuria 98662980 Completed 09/09/2013 Not Available [facility] 3 02:01:59 Disorder of lower limb 210979755 Completed 200109/09/2013 Not Available [facility] 3 02:03:21 Pain in wrist 44787864 Completed 200009/09/2013 Not Available [facility] 3 02:02:22 Backache 134949312 Completed 200509/09/2013 Not Available [facility] 3 02:01:11 Pain in limb 38565697 Completed 200009/09/2013 Not Available [facility] 3 02:00:52 Problem Notes None recorded. Procedures Surgical History Date Name Laterality Status Provider Name and Address Organization Details Recorded Time 7 Smoking cessation counseling completed Nina Solano Clementina [facility] 08/13/2017 10:30:00 7 Medicare Wellness Visit completed Nnia Solano Clementina [facility] 08/13/2017 10:24:12 7 Carbon Monoxide Testing completed Nina Solano [facility] 08/13/2017 10:30:00 7 Smoking cessation counseling completed DILIP Todd [address] [place] [address], [address], [facility] 07/29/2017 15:12:41 7 Carbon Monoxide Testing completed DILIP Todd [address] [place] [address], [address], [facility] 07/29/2017 15:12:41 6 Smoking cessation counseling completed Zuly Gardner [facility] 02/22/2016 10:04:22 4 Smoking cessation counseling cancelled Estela Ralph LPN [facility] 06/30/2014 16:37:00 3 Smoking cessation counseling completed Estela Small [facility] 04/02/2013 15:19:49 1 Smoking cessation counseling completed Susana Caro [facility] 06/05/2011 15:30:24 0 Shoulder (Left) Injection completed Kerwin Springer MD [address] [place] [address], [address], [facility] 05/23/2010 20:53:41 6 Hernia Repair completed Chaitanya Parr MD [address] [place] [address], [phone], [facility] 07/14/2014 08:55:13 Imaging Results Imaging Date Name Status [facility]Modified by [facility] Details LastModified Time 02/22/2016 x-ray, chest completed [facility] (Im[facility]) [address], [place], [address], 02/22/2016 15:33:56 02/27/2016 CT, lung completed [facility] [place] [address], [place], [address], 03/06/2016 19:21:01 Procedure Notes None recorded. Medical Equipment None Reported. Allergies Allergen ID Allergen Name Allergen Category Reaction Reaction Severity Criticality Documentation Date Start Date Code Code System Note Provider Name and Address Organization Details Recorded Time 01103 Product containin g penicilli n and antibioti c (product) medicatio n Not available Not available Not available 05/11/2010 26615 05 SNOMED Not Available [facility] 1 06:05:41 Medications Name Sig Start Date [...] Avai lable Vitals Date Recorded Body height Body mass index (BMI) Body weight Heart rate Body temperature Systolic blood pressure Diastolic blood pressure Provider Name and Address Organization Details Last Updated DateTime 7 173.36 cm 22.8 kg/m2 91082.8 5 g 72 /min 98 [degF] 120 mm[Hg] 66 mm[Hg] Zuly Gardner [facility] 7 14:36:58 Date Recorded Body height Systolic blood pressure Diastolic blood pressure Provider Name and Address Organization Details Last Updated DateTime 08/07/2017 173.36 cm 118 mm[Hg] 80 mm[Hg] Moon Soria [facility] 08/07/2017 09:01:41 Date Recorded Body height Body mass index (BMI) Body weight Heart rate Oxygen saturation Oxygen saturation in Arterial blood by Pulse oximetry Systolic blood pressure Diastolic blood pressure Provider Name and Address Organization Details Last Updated DateTime 7 172.21 cm 22.5 kg/m2 32719.0 8 g 70 /min 97 % 97 % 106 mm[Hg] 60 mm[Hg] LYNDON Hammer [facility] 7 10:34:01 Date Recorded Body height Body mass index (BMI) Body weight Systolic blood pressure Diastolic blood pressure Provider Name and Address Organization Details Last Updated DateTime 07/14/2014 173.355 cm 22.2 kg/m2 52075.07 839 g 130 mm[Hg] 82 mm[Hg] Adriana Rosa [facility] 4 08:40:14 Date Recorded Body weight Body mass index (BMI) Body height Body temperature Heart rate Systolic blood pressure Diastolic blood pressure Provider Name and Address Organization Details Last Updated DateTime 6 57464.7 66681 g 23 kg/m2 173.355 cm 97.8 [degF] 68 /min 126 mm[Hg] 80 mm[Hg] Zulyabby Gardner [place] [facility] 6 10:04:22 Date Recorded Oxygen saturation Oxygen saturation in Arterial blood by Pulse oximetry Provider Name and Address Organization Details Last Updated DateTime 02/22/2016 97 % 97 % DILIP Todd [address] [place] [address], [address], [facility] 02/22/2016 10:33:23 Social History Question Answer Notes LastModified by Organizat ion Details LastModified Time Tobacco Smoking Status Current Every Day Smoker couple ciggs daily 10.9.17 3 cigs QD 08/13/17 Zuly CecilyBRITNI singleton null, [facility] 02/22/2016 10:01:40 What Is Your Level Of [...] not available 08/13/2017 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 0 Information not available 07/14/2014 Are There Any Guns Present In Your Home? 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 With Others Information not available 06/30/2014 Does The Patient Have Difficulty Speaking [place]er? No Information not available 06/30/2014 Does The Patient Have Difficulty Reading [place]er? No Information not available 06/30/2014 Patient Has Health [...] Many Children Do You Have? 3 Chen 1976, Ruslan 1979, Roseline 1980 Information not available 08/13/2017 Seat Belts Used Routinely Yes Information not available 07/14/2014 Are You Sexually Active? Yes Information not available 07/14/2014 Smoke Alarm In Home Yes Information not available 07/14/2014 At What Age Did You Start Smoking Tobacco? 15 Information not available 06/30/2014 General Stress Level [...] Td(adult) unspecified formulation 2 completed Not Available [facility] 09/05/2011 05:20:34 Past Encounters Encounter ID Performer Location Encounter Start Date Encounter Closed Date Diagnosis/Indication Diagnosis SNOMED-CT Code Diagnosis ICD10 Code Diagnosis Note [id number] [facility], [place]ICE [address] [place] [address] 01/06/2001 13:45:00 11/10/2008 02:02:29 [id number] [facility], OFFICE [address] [place] [address] 01/20/2001 10:45:00 11/10/2008 02:02:29 [id number] [facility], OFFICE [address] [place] [address] 05/02/2001 15:00:00 11/10/2008 02:02:29 [id number] Radiology , [facility] [address] [place] [address] 05/02/2001 15:15:00 11/10/2008 02:02:29 [id number] Physical Therapy, [address] [address] 06/20/2001 12:30:00 11/10/2008 02:02:29 [id number] [facility], OFFICE [address] [place] [address] 08/24/2002 08:51:40 11/10/2008 02:02:29 [id number] [facility] [address] [address] 09/30/2002 18:23:57 11/10/2008 02:02:29 [id number] [facility], OFFICE [address] [place] [address] 12/16/2002 14:05:49 11/10/2008 02:02:29 [id number] [facility] [facility], OFFICE [address] [place] [address] 01/22/2003 14:39:02 11/10/2008 02:02:29 [id number] [facility] [address] [address] 11/09/2003 15:37:02 11/09/2003 16:49:12 [id number] LAB - [facility] [address] [place] [address] 01/03/2004 14:48:39 01/03/2004 14:48:55 [id number] Radiology , [facility] [address] [place] [address] 01/03/2004 14:47:01 01/03/2004 14:47:21 [id number] FP, [facility], OFFICE [address] [place] [address] 01/03/2004 13:55:09 01/04/2004 10:39:20 [id number] FP, [facility], OFFICE [address] [facility] [place] [address] 10/19/2004 15:58:41 10/21/2004 09:14:24 [id number] FP, [facility], OFFICE [address] [facility] [place] [address] 01/31/2005 14:55:15 02/01/2005 10:11:24 [id number] , [facility], OFFICE [address] [facility] [address] [place] [address] 02/14/2005 15:19:33 11/10/2008 02:02:29 [id number] , [facility], OFFICE [address] [facility] [place] [address] 10/30/2005 11:56:25 11/10/2008 02:02:29 [id number] , [facility], OFFICE [address] [facility] [place] [address] 01/01/2006 11:12:37 11/10/2008 02:02:29 [id number] Radiology , [facility] 70 [facility] [place] [address] 01/01/2006 11:51:20 01/02/2006 09:28:40 [id number] Radiology , [facility] 70 [facility] [place] [address] 01/01/2006 00:00:00 11/10/2008 02:02:29 [id number] Radiology , [facility] 70 [facility] [place] [address] 01/21/2006 14:07:15 01/22/2006 08:47:47 [id number] Radiology , [facility] 70 [facility] [place] [address] 01/21/2006 00:00:00 11/10/2008 02:02:29 [id number] [facility], [address] [address] 02/11/2006 09:19:52 02/13/2006 08:48:17 [id number] [facility], OFFICE [address] [place] [address] 01/01/2006 00:00:00 11/10/2008 02:02:29 [id number] [facility], OFFICE [address] [place] [address] 04/03/2007 14:38:17 04/04/2007 11:41:33 [id number] [facility], [facility] [address] [place] [address] 09/05/2007 12:42:18 09/05/2007 16:54:06 [id number] [facility], OFFICE [address] [place] [address] 05/11/2010 11:34:55 05/15/2010 10:30:11 [id number] [facility], OFFICE [address] [place] [address] 05/18/2010 14:21:14 05/29/2010 14:26:54 [id number] [facility] , [facility] [address] [place] [address] 05/18/2010 14:52:45 05/19/2010 14:34:19 [id number] [facility], OFFICE [address] [place] [address] 06/05/2011 15:08:04 06/06/2011 10:21:59 [id number] Fatemeh Tejeda MA [facility], OFFICE [address] [place] [address] 02/01/2012 15:45:01 02/01/2012 16:18:12 [id number] Fatemeh Tejeda MA [facility], OFFICE [address] [place] [address] 04/02/2013 14:50:32 04/03/2013 10:56:06 [id number] Fatemeh Tejeda MA [facility], OFFICE [address] [place] [address] 11/16/2013 14:51:51 11/17/2013 09:32:30 Pneumonia 432560941 f/u in 2 months for repeat cxr. call if not better Tobacco user 719502021 n icotine replacemen t products urged. Acute bronchitis 03559138 rest, hot liquids,hu midify air, call if worse [id number] Estela Ralph LPN , [facility], [address] [place] [address] 12/23/2013 15:19:16 12/23/2013 15:50:11 Tobacco user 693609607 since nicotime replacemen t didn't work for him. try welbbutrin take for 7 weeks . stopsmokin g after one week. s/e explained Pneumonia 780406718 CXR- negative pneumonia resolved [id number] Shara Hernandez , [facility], [address]ICE [address] [place] [address] 07/14/2014 08:20:23 07/14/2014 09:02:56 Adult health examination [id number] See Risk Assessment and Lifestyle Change Counseling section. Colonoscop y UTD (01/2006). Needs 10-year surveillan ce. Patient refuses Td and Influenza vaccines. Seat belt safety also discussed. Check FLP and Glucose. Counseling [id number] DILIP Todd , [facility], [address]ICE [address] [place] [address] 02/22/2016 09:43:11 02/22/2016 11:07:05 Nicotine dependence 90207400 Z87.891 Tobacco user 279738587 Z 72.0 Fatigue 25142369 R53.83 Cough 10202317 R05 Dyspnea 243282453 R06.00 Joint pain 99281846 M25. 50 [id number] DILIP Todd , [facility], OFFICE [address] [place] [address] 07/29/2017 14:13:08 07/29/2017 15:16:35 Blepharitis 00826063 H01.9 Pain in toe 986119804 M7 9.675 Cigarette smoker 1221103 7 F17.210 will use hydrocorti sone before applying patch to decrease irritation of skin Tobacco user 466359526 Z 72.0 [id number] Ailin Izaguirre DPM Podiatry, [facility] [address] [place] [address] 08/07/2017 08:47:11 08/07/2017 09:20:44 Tobacco user 455470525 Z72.0 Pain in toe 676272591 M7 9.675 Pronation of foot 519145 03 M21.6X9 [id number] Lucina Vo MD , [facility], [address]ICE [address] [place] [address] 08/13/2017 10:18:57 08/13/2017 11:04:31 Adult health examination 111052903 Z00.00 see Risk Assessment and Lifestyle Change Counseling section above Counseling 570028595 Z71 .9 Cigarette smoker 6774768 7 F17.210 actively cutting backlozeng es helpfuldow n to 3-4 a daypartner closet smoker with himgoal to quit together, perhaps after alf cousneling /support ed today Tobacco user 289285376 Z 72.0 Hearing loss 40272747 H9 0.6 has hearing aides and follows with audiologis t regularly Impotence 400833065 N52. 9 has effect with drug but it is expensive for him Rosacea 313644768 L71.9 sx well managed with avoidance of triggers Low back pain 890083269 M54.5 intermitte nt, not active issuemanag es as needed with exercise, activity changes, occ OTC medication s Screening for disorder 198533563 Z11.59 Screening for malignant neoplasm of colon 801398288 Z12.11 Referral for a DIRECT booked colonoscop y. This patient is a healthy ASA Class 1 or 2 patient (only mild systemic disease), or a STABLE, well controlled insulin dependent diabetic. They do not have serious cardiac disease ie AL/angiopl asty within 1 year, symptomati c CHF; [...] 1 [place] [place] [id number] Ruslan Huertas [id number] Ruslan Huertas 02/22/2016 1 [employer] - [employer] (PPO) Ruslan Huertas [id number] Ruslan Huertas 07/29/2017 1 [facility] [id number] Ruslan Huertas [id number] Ruslan Godoybobo 08/07/2017 1 [facility] [id number] Ruslan Godoybobo [id number] Ruslan Godoybobo 08/13/2017 1 [facility] [id number] Ruslan Huertas [id number] Ruslan Huertas Notes Date Note Type Note Provider Name and Address Organization Details Recorded Time 07/14/2014 text/html Patient who is overall healthy here for a PHA visit. Bilateral hearing loss. Scheduled to have hearing aid fitting. Otherwise doing well. Denies F/C/N/V/D. Denies abdominal pain. Denies dysuria or hematuria. 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 Chaitanya Parr MD [address] [place] [address], [address], [facility] 07/14/2014 23:29:24 02/22/2016 text/html a/vmg-smoking [id number] bypatient.Importance On a scale of 1-10 with [...] chest pain, urianry hesitancy- chronic. DILIP Todd [address] [place] [address], [address], [facility] 02/25/2016 09:43:42 07/29/2017 text/html a/vmg-smoking [id number] bypatient.Importance On a scale of 1-10 with 1 being not important and 10 being very important the patient rates importance of stopping smoking as ; important to quit= has copd Physiological Dependence/Health Mldk2fgor /dayNotes:uses patch but had rx left footpain x > 1 yr, flares with use on uneven terrain, agg with playing golf. left eye lump upper lid- no drINAGE. NO PAIN, DILIP Todd [address] [place] [address], [address], [facility] 07/30/2017 15:21:29 08/07/2017 text/html Patient presents to the office complaining of pain in the middle toe of his left foot. Patient states he has been experiencing pain with increased activity especially on irregular terrain for a long time. Patient has not noticed any swelling or discoloration. Ailin Izaguirre DPM [address] [place], [address], [facility] 08/07/2017 09:40:15 08/13/2017 text/html Physical Exam/MaleReported bypatient.PHAPatient [...] room and availability of urgent care [place] [facility] [place] [id number] bypatient.Importance On a scale of 1-10 with 1 being not important and 10 being very important the patient rates importance of stopping smoking as 10; important to quit= has copd Physiological Dependence/Health Risk3-4 cigs /day Medication AssessmentHas used Patch in the past; Has used lozenges in the past health goals:trying to quit smokingworking full timesmokes out of habitconcerns: Lucina Vo MD [address] [place] [address], [phone], [facility] 08/13/2017 12:20:04
[2024-11-24 09:02] VITALS: BMI 20.2
--- NOTE | 2024-11-24 09:09 | MHC.SHP ---
Pre-Procedural Eval Section A - 24 Hr Update-Section A only Date of Service: 11/24/24 The patient is an INPATIENT: No The patient has been examined within 24 hours of the surgical procedure. The History & Physical has been completed within 30 days and I have reviewed it.: Yes Section B - Complete if H&P > 30 days Chief Complaint: Abnormal weight loss,Noninfective gastroenteritis Allergies: Allergies Allergy/AdvReac Type Severity Reaction Status Date / Time penicillin G Allergy Unknown hives Verified 11/24/24 09:01 Plan Diagnosis/Plan: Unchanged I have reviewed the history and physical and performed a pertinent physical examination on my patient. No changes have occurred unless specified. Time Spent With Patient Time: Total time managing care of this patient today ____ minutes.
[2024-11-24 09:13] VITALS: BP 166/97; PULSE 91; RESP 15; TEMP 36.7; O2SAT 99
[2024-11-24] MEDS: Lactated Ringers 1,000 ML 100 ML IVCONT (09:29)
--- NOTE | 2024-11-24 09:29 | HO.ANESPROP2 ---
[facility] Active Problems Active Problems: All Active Problems Abnormal CT scan, colon (Acute) Chronic diarrhea (Acute) Lower urinary tract symptoms (Acute) Erectile dysfunction (Acute) BPH (benign prostatic hyperplasia) (Acute) Hordeolum externum (stye) (Acute) Weight loss (Acute) Diarrhea (Acute) Rectal bleeding (Acute) [facility] Past Medical History Medical History Smoker BPH (benign prostatic hyperplasia) COPD (chronic obstructive pulmonary disease) Functional capacity: independent ambulation Family History Family History Mother Stroke Father Pancreatic cancer Heart disease Sister Breast cancer Family history of problems with anesthesia: No Surgical History Surgical History Hx of colonoscopy (~2019) History of hernia surgery History of Problems with Anesthesia: No Social History Social History Household Members: Spouse Housing: House Alcohol intake: current Alcohol intake frequency: 3 or more drinks per day Alcohol type: beer Patient Tobacco Use Status: Current everyday Tobacco user Tobacco use type: Cigarette Cigarette Packs Per Day: 0.5 Cigarettes Per Day: 15 e-Cigarette/Vaping Use: Never Used Second Hand Smoke Exposure: Yes Use of substances other than those prescribed or required for medical reasons: No Are you DNR?: No Advance Directives: No Advance Directives Information Provided: Yes service: No Current occupational status: employed 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 [employer] Cognitive needs: No Hearing needs: Yes (hearing aide) Vision needs: Yes (reading glasses) Meds Allergies Allergy/AdvReac Type Severity Reaction Status Date / Time penicillin G Allergy Unknown hives Verified 11/24/24 09:01 Active Medications: Current Medications Lactated Ringer's (Lr) 1,000 mls @ 100 mls/hr IVCONT .Q10H [facility] Home Medications ?Medication ?Instructions ?Recorded ?Confirmed ?Last Taken ?Type pantoprazole 40 mg tablet,delayed 40 mg PO DAILY 11/23/24 11/24/24 Unknown History release Exam Height,Weight and Vital Signs: Height 5 ft 8 in Weight 60.328 kg Last Vital Signs Temp 98.0 F 11/24/24 09:13 Pulse 91 11/24/24 09:13 Resp 15 11/24/24 09:13 BP 166/97 H 11/24/24 09:13 Pulse Ox 99 11/24/24 09:13 O2 Del Method Room Air 11/24/24 09:13 Airway Mallampati Class: II TM Dist: >3cm Neck ROM: Full Heart: RRR Lungs: CTA Assessment and Plan Assessment Anesthesia Assessment: Anesthesia Plan Discussed, Smoking Cess. Discussed and Chart Reviewed Final Anesthetic Review Family History of Problems with Anesthesia: No History of Problems with Anesthesia: No NPO: Yes ASA Class: II Final Preanesthetic Review: Meds/Allgs Chart Reviewed, Consent Obtained/Reviewed and Anes Risks/Benef Reviewed Patient Risk: Low Procedure Risk: Low Anesthetic Plan Anesthetic Plan: MAC: Disposition: Standard PACU
--- NOTE | 2024-11-24 10:05 | P.OPN-COLO_ITS ---
Colonoscopy Operative Note Operative Note Date of Service: 11/24/24 Narrative: Procedure: Upper endoscopy and colonoscopy Indication: Diarrhea, unintentional weight loss Endoscopist: Zora Wills MD Anesthesia Provider: Dr Juliette Lucia Anesthesia type: MAC Instrument: [id number]-[id number] and [id number]-[id number] EGD Procedure:?? The procedure, indications, preparation and potential complications were reviewed with the patient, who indicated understanding and gave written informed consent to proceed. The endoscope was introduced through the mouth, and advanced to the 2nd part of the duodenum. The mucosa was carefully examined on slow withdrawal of the endoscope. The patient tolerated the procedure well. There were no immediate complications.? EGD Findings:? * Esophagus:? Normal esophageal mucosa was noted. The Z-line was at 35 cm. * Stomach:? Erythema and congestion noted in the antrum with somewhat lumpy bumpy appearance of mucosa in the body. Retroflexion was performed in the cardia. Random cold forceps biopsies were taken from the stomach. * Duodenum:? Erythema and erosions with scant heme noted in the duodenal bulb and sweep. Cold forceps biopsies were taken from the duodenal bulb and 2nd portion of the duodenum to rule out celiac sprue. Colonoscopy Procedure:? The patient was then turned for the colonoscopy. A digital rectal exam was performed which was abnormal for external hemorrhoids.? A distal attachment cap was affixed to the tip of the scope and the colonoscope was then inserted through the anus and advanced through the colon and advanced to the cecum at 75 cm and terminal ileum.? Appendiceal orifice and ileocecal valve were identified. Mucosa was carefully examined under high definition white light as the instrument was slowly withdrawn in a retrograde panoramic fashion. Retroflexion was performed in rectum. The procedure was not difficult. The quality of the prep was BBPS: 2+3+3 = adequate Withdrawal time 12 minutes Limitations: No limitations Findings: Mucosa: Normal terminal ileum mucosa was noted (intubated up to 25 cm). Cold forceps biopsies were taken for histology. Normal colon mucosa was noted on the R side. In the L side colon there was erythema, edema and petechiae without overt exudates or ulceration in sigmoid colon and rectum. Cold forceps biopsies were taken from each segment of the colon including rectum. Protruding lesions: * Large internal hemorrhoids with stigmata of recent bleeding. Impression: 1. Normal esophagus (biopsy) 2. Gastritis (biopsy) 3. Duodenitis (biopsy) 4. Proctocolitis (biopsy) 5. Internal and external hemorrhoids Recommendations:?? * Follow-up path results * Increase pantoprazole to twice a day * Smoking cessation counseling * Treatment of proctocolitis will depend on underlying etiology, suspect possibly IBD vs infectious * Repeat colonoscopy for asymptomatic colorectal cancer screening optional in 10 years if patient in good health
[2024-11-24 11:03] VITALS: BP 88/61; PULSE 74; RESP 16; TEMP 36.1; O2SAT 97
[2024-11-24 11:18] VITALS: BP 112/64; PULSE 77; RESP 16; O2SAT 97
[2024-11-24 11:30] VITALS: BP 110/78; PULSE 76; RESP 16; O2SAT 97
[2024-11-24 11:45] VITALS: BP 126/65; PULSE 59; RESP 16; TEMP 36.3; O2SAT 97
--- NOTE | 2024-11-24 13:38 | HO.POSTANES ---
Post Anesthesia Evaluation Post Anesthesia Evaluation Date of Service: 11/24/24 Vital Signs: Vital Signs Temp Pulse Resp BP Pulse Ox O2 Del Method 11/24/24 11:45 97.4 F 59 16 126/65 97 Room Air 11/24/24 11:30 76 16 110/78 97 Room Air 11/24/24 11:18 77 16 112/64 97 Room Air 11/24/24 11:03 97 F 74 16 88/61 L 97 11/24/24 09:13 98.0 F 91 15 166/97 H 99 Room Air Anesthesia: Monitored Mental Status: Awake Pain Control: Satisfactory Nausea/Vomiting: None Hydration: Adequate Anesthesia-Related Issues: No Anes. Related Issues
== END 2024-11-24 12:16 | disposition home or self-care (01) ==
PROVIDERS: Visit Provider Internal Medicine
PROC: (CPT 45380; principal; 2024-11-24 11:30)
DX: R10.31 Right lower quadrant pain (principal); K52.9 Noninfective gastroenteritis and colitis, unspecified; K62.5 Hemorrhage of anus and rectum; K62.89 Other specified diseases of anus and rectum; R23.3 Spontaneous ecchymoses; K64.4 Residual hemorrhoidal skin tags; R63.0 Anorexia; R63.4 Abnormal weight loss; Z68.22 Body mass index [BMI] 22.0-22.9, adult; Z80.0 Family history of malignant neoplasm of digestive organs; R10.11 Right upper quadrant pain; Z80.8 Family history of malignant neoplasm of other organs or systems; K29.50 Unspecified chronic gastritis without bleeding; K29.80 Duodenitis without bleeding; K31.7 Polyp of stomach and duodenum; K44.9 Diaphragmatic hernia without obstruction or gangrene; J44.9 Chronic obstructive pulmonary disease, unspecified; N40.0 Benign prostatic hyperplasia without lower urinary tract symptoms; Z88.0 Allergy status to penicillin; Z98.890 Other specified postprocedural states; F17.210 Nicotine dependence, cigarettes, uncomplicated; F10.90 Alcohol use, unspecified, uncomplicated
CPT/HCPCS: 45380; 43239; 88305; 88307; J2003; J2704

== ENCOUNTER → 2024-11-24 08:45 | Outpatient (BNV) | payer MEDICARE, SELFPAY | PROVIDERS: Visit Provider Internal Medicine | DX: R19.7 Diarrhea, unspecified (principal); R63.4 Abnormal weight loss; K29.70 Gastritis, unspecified, without bleeding; K29.80 Duodenitis without bleeding; K64.8 Other hemorrhoids; K51.219 Ulcerative (chronic) proctitis with unspecified complications | CPT/HCPCS: 43239; 45380 ==

== ENCOUNTER 2024-12-03 13:06 | Outpatient (AMB) | payer MEDICARE, SELFPAY ==
--- OUTSIDE RECORDS SUMMARY | 2024-12-03 13:16 | XMS_ITS | Patient Health Record ---
Author Organization [facility] Address [address] [place] [address] Care Team Providers Care Shank Piece Tacker Name Role Phone Evin JASON, Radha Primary Care Provider Unavail able Natanael Evans Unavailable [phone] Allergies Allergen (clinical drug ingredient) Drug/Non Drug [...] Problem Status W/U Status Risk Notes Problem [id number] Hammer toe of left foot (M20.42) Active confirmed Plan Of Treatment Pending Test Test Name Order Date X ray : Foot, left 3V 05/23/2022 Insurance Providers Payer Name Payer Address Payer Phone Subscriber Number Group Number Insured Name Patient Relationship to Insured Coverage Start Date Coverage End Date [employer] Medicare [id number] [address] [address] [place] [address] [id number] Ruslan Hoang Self - patient is the insured Medical (General) History Medical History History ICD Code Chicken pox Surgical History Surgery Date(Month/Year) hernia 2012
--- NOTE | 2024-12-03 13:17 | A.OFFPC_ITS ---
Vital Signs 12/03/24 13:18 Height 5 ft 8 in Weight 143 lb 15.39 oz BMI 21.9 BP 120/70 Blood Pressure Location Lt brachial Position Sitting Pulse 64 Pulse Source Pulse Oximeter Temp 97.9 F Temp Source Temporal Artery Scan Pulse Oximetry (%) 96 Oxygen Delivery Method Room Air Intake Visit Reasons: 2 week f/u Intake Note: Patient is here to follow up on Rectal bleeding. Edge Trimmer Mechanic Required: No Investor Relations Manager: Not Required per policy Accompanied by: Self / Same As Patient Allergies penicillin G Allergy (Unknown, Verified 12/03/24 13:49) hives Medication List - Last Reconciled 12/03/24 by Nikolai Nicolas MD budesonide DR-ER 9 mg PO DAILY pantoprazole 40 mg PO BID Tobacco use date assessed: 12/03/24 Fall risk assessment: No Falls in past year Last assessed Fall Risk: 12/03/24 Dental Screening Dental Screen Date: 11/19/24 HPI 2 week f/u HPI Details 74-year-old male presents to the office for a follow-up visit. He recently underwent an upper and lower endoscopy and has not been informed of the results yet. Clinically, he has returned to baseline. His stools are formed and there is no further bleeding. His appetite is normal and he is in no discomfort. Patient has a swelling in the left earlobe that he would like examined. [facility] Medical History Smoker BPH (benign prostatic hyperplasia) COPD (chronic obstructive pulmonary disease) Surgical History Hx of colonoscopy (~2019) History of hernia surgery Family History Mother Stroke Father Pancreatic cancer Heart disease Sister Breast cancer Social History Household Members: Spouse Housing: House Alcohol intake: current Alcohol intake frequency: 3 or more drinks per day Alcohol type: beer Patient Tobacco Use Status: Current everyday Tobacco user Tobacco use type: Cigarette Cigarette Packs Per Day: 0.5 Cigarettes Per Day: 15 e-Cigarette/Vaping Use: Never Used Second Hand Smoke Exposure: Yes service: No Current occupational status: employed 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 Cognitive needs: No Hearing needs: Yes (hearing aide) Vision needs: Yes (reading glasses) Questionnaire Thrive Questionnaire Date Thrive assessed: 11/19/24 REJI-7 AMB Questionnaire REJI-7 Date REJI - 7 assessed: 12/03/24 Feeling nervous, anxious, or on edge: 0 = Not at all Not being able to stop or control worryin = Not at all Worrying too much about different things: 0 = Not at all Trouble relaxin = Not at all Being so restless that it is hard to sit still: 0 = Not at all Becoming easily annoyed or irritable: 0 = Not at all Feeling afraid as if something awful might happen: 0 = Not at all Total REJI-7 score (0-4 normal; 5-9 mild; 10-14 moderate; 15-21 severe): 0 Source: Developed by Drs. Tim Sol, Krystyna Castillo, Vidal Lagos and colleagues, with an educational praveen from [employer]. Physical exam (Primary Care) Vital Signs: Last Vital Signs Temp 97.9 F 12/03/24 13:18 Pulse 64 12/03/24 13:18 BP 120/70 12/03/24 13:18 Pulse Ox 96 12/03/24 13:18 Oxygen Delivery Method Room Air 12/03/24 13:18 BMI result Body Mass Index 21.9 Tobacco/Smoking Status: Tobacco use Status Tobacco use date assessed 12/03/24 12/03/24 13:23 Patient Tobacco Use Status Current everyday Tobacco 12/03/24 13:23 Tobacco use type Cigarette 12/03/24 13:23 e-Cigarette/Vaping Use Never Used 12/03/24 13:23 Thrive Assessment: Date of Thrive Assessment Date Thrive assessed 11/19/24 12/03/24 13:23 Const Other: Skin: Left earlobe: Pedunculated fleshy swelling. General: cooperative and healthy appearing Nutritional Appearance: well nourished Orientation/consciousness: patient oriented x3 Limitations: no limitations HENMT Head: Yes normal to inspection Eyes General: appearance normal, both eyes and all related structures Neck Neck: Yes normal visual inspection Chest Chest palpation & inspection: normal palpation of entire chest wall Resp Effort & Inspection: normal respiratory effort Neuro General: patient oriented x3 Coding Level of Care Code Est Pt Level 4 (04208) Complex EM visit Add On G2211 Diagnoses Colitis K52.9 Papilloma D36.9 Assessment & Plan Assessment & Plan (1) Colitis: Code(s): K52.9 - Noninfective gastroenteritis and colitis, unspecified Category: Medical Plan: Pathology report was reviewed with patient. Informed him that the possibility of infectious or inflammatory colitis exists. His food and nutrition services assistant as sent a prescription of furosemide. After he does the stool exam, he should start the medication. (2) Papilloma: Code(s): D36.9 - Benign neoplasm, unspecified site Plan: Patient has a fleshy papilloma and would like it excised. A surgical appointment has been requested. Orders: Referrals General Surgery Referral D36.9 - Benign neoplasm, unspecified site
--- OUTSIDE RECORDS SUMMARY | 2024-12-03 13:17 | XMS_ITS | Data Portability ---
Author Organization [facility], , [facility] Address [address] [place] [address] Care Team Providers Care Social Media Specialist Name Role Phone KERWIN SPRINGER Primary Care Provider MELBA SPRINGER Primary Care Provider AILIN IZAGUIRRE Shipping Hand [facility] Process Safety Manager CLAUDETTE MCLAIN Policy Advisor Assessment Encounter Date Assessment Date Assessment LastModified by Organization Details LastModified Time 08/07/2017 08/07/2017 Metatarsalgia/ pain 3rd toe left foot, pes planovalgus deformity jerskine Not available 08/07/2017 09:39:25 Plan of Treatment Reminders Order Date Submit Date Provider Last Modified By Organization Details Last Modified Time Details Appointments None recorded. Lab lyme disease igg+igm Ab, serum 2015 016 [facility], [address] [place] [address], [address], 6 14:13:14 CMP, serum or plasma 2015 016 [facility], [address] [place] [address], [address], 6 15:33:36 CBC 2015 016 [facility], [address] [place] [address], [address], 6 15:10:48 TSH, serum or plasma 2015 016 [facility], [address] [place] [address], [address], 6 10:09:[address] cleaner referral 2016 017 [facility] Ailin Izaguirre DPM, [address] [facility], [place], [address], 7 11:12:35 Procedures colonoscopy procedure (PROC) 2016 017 rsilvaros en1 [facility], [address] [facility], [place], [address], 7 10:30:13 Surgeries None recorded. Imaging x-ray, chest - smoker , with 6 wks fatigue- increasing cough. exam- decreased bs 2015 016 [facility] (Imaging), [address], [place], [address], 6 11:21:56 Medication Orders Cialis 20 mg tablet 2016 017 jdepiero [id number], [address] [place], [place], [id number], 7 10:59:07 erythromyci n 5 mg/gram (0.5 %) eye ointment 2016 017 [facility] #[id number], [address] [place], [place], [id number], 7 10:26:41 Patient Targets Encounter Date Encounter Id Patient Goals Patient Target Last Modified By Organization Details Last Modified Time Smoking cessation, see notes above jdepiero Not available 08/13/2017 10:53:04 Patient Instructions Encounter Date Encounter Id Patient Instructions Last Modified By Organization Details Last Modified Time 07/14/2014 [id number] Well Visit 50 to 65: Care Instructions fkim Not available 07/14/2014 23:29:23 02/22/2016 [id number] Quitting Tobacco : Care Instructions ashelkey Not [...] 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 [facility] sponsor}} {{# adding exercise regular meals 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 id [facility] sponsor}}My Health To Do List {{# go to [employer] or call sig n up for randolph text 2 quit or other stop smoking randolph contact [employer]}} {{# go to [employer] or call sig n up for randolph text 2 quit or other stop smoking randolph contact [employer]gov}} {{# go to [employer] or call sig n up for randolph text 2 quit or other stop smoking randolph contact [employer]gov}} ashelkey Not available 02/22/2016 10:04:22 07/29/2017 [id number] deciding about using medicines to quit smoking [...] sponsor}}My Health To Do List {{go to [employer] or call sig n up for randolph text 2 quit or other stop smoking randolph contact [employer]gov}} {{go to [employer]Adzuna or call sig n up for randolph text 2 quit or other stop smoking randolph contact [employer]gov}} {{go to [employer]Adzuna or call sig n up for randolph text 2 quit or other stop smoking randolph contact [employer]gov}} aesrick Not available 07/29/2017 15:12:41 08/07/2017 [id number] Patient states h e will pursue prefabricated [...] sponsor}}My Health To Do List {{go to quitAdzuna or call sig n up for randolph text 2 quit or other stop smoking randolph contact [employer]gov}} {{go to quitAdzuna or call sig n up for randolph text 2 quit or other stop smoking randolph contact [employer]gov}} {{go to [employer]Ad[employer] or call sig n up for randolph text 2 quit or other stop smoking randolph contact [employer]gov}} Not available 08/07/2017 09:13:44 08/13/2017 [id number] deciding about using medicines to quit smoking [...] life expectancy. Pt declines all vaccinations despite risk reduction counselor. He is enc to consider and [...] My Health To Do List {{go to [employer] or call * si gn up for randolph text 2 quit or other stop smoking randolph contact [employer]gov}} {{go to [employer] or call sig n up for randolph text 2 quit or other stop smoking randolph contact [employer]gov}} {{go to [employer] or call sig n up for randolph text 2 quit or other stop smoking randolph contact [employer]}} diamond Not available 08/13/2017 12:19:04 Reason for Referral Shipping Hand Referral for Pain in toe Referring Physician: Melba Springer, Family Medicine, Encounter Date: 07/29/2017 Results Created Date Observation Date Name Description Value Unit Range Abnormal Flag Note LastModifiedBy Organization Detail LastModifiedTime 02/22/20 16 02/22/2016 CBC WBC 4.7 K/??L 4.2-9. 1 Not Available [address], [address], 02/22/2016 15:10:48 02/22/20 16 02/22/2016 CBC RBC 4.32 M/??L 4.63-6 .08 low Not Available [address], [address], 02/22/2016 15:10:48 02/22/20 16 02/22/2016 CBC HGB 14.2 g/dL 13.7-1 7.5 Not Available [address], [address], 02/22/2016 15:10:48 02/22/20 16 02/22/2016 CBC HCT 41.4 % 40.1-5 1.0 Not Available [address], [address], 02/22/2016 15:10:48 02/22/20 16 02/22/2016 CBC MCV 95.8 ??L 79.0-9 2.2 high Not Available [address], [address], 02/22/2016 15:10:48 02/22/20 16 02/22/2016 CBC MCH 32.9 pg 25.7-3 2.2 high Not Available [address], [address], 02/22/2016 15:10:48 02/22/20 16 02/22/2016 CBC MCHC 34.3 g/dL 32.3-3 6.5 Not Available [address], [address], 02/22/2016 15:10:48 02/22/20 16 02/22/2016 CBC plt 198.0 K/??L 163.0- 337.0 Not Available [address], [address], 02/22/2016 15:10:48 02/22/20 16 02/22/2016 CBC MPV 10.9 9.4-12 .4 Not Available [address], [address], 02/22/2016 15:10:48 02/22/20 16 02/22/2016 CBC neut% 60.2 % 34.0-6 7.9 Not Available [address], [address], 02/22/2016 15:10:48 02/22/20 16 02/22/2016 CBC neut# 2.9 1.8-5. 4 Not Available [address], [address], 02/22/2016 15:10:48 02/22/20 16 02/22/2016 CBC lymph % 24.3 % 21.8-5 3.1 Not Available [address], [address], 02/22/2016 15:10:48 02/22/20 16 02/22/2016 CBC lymph # 1.2 K/??L 1.3-3. 6 low Not Available [address], [address], 02/22/2016 15:10:48 02/22/20 16 02/22/2016 CBC mono% 10.6 % 5.3-12 .2 Not Available [address], [address], 02/22/2016 15:10:48 02/22/20 16 02/22/2016 CBC mono# 0.5 0.3-0. 8 Not Available [address], [address], 02/22/2016 15:10:48 02/22/20 16 02/22/2016 CBC eo% 3.2 % 0.8-7. 0 Not Available [address], [address], 02/22/2016 15:10:48 02/22/20 16 02/22/2016 CBC eo# 0.2 0.0-0. 5 Not Available [address], [address], 02/22/2016 15:10:48 02/22/20 16 02/22/2016 CBC baso% 1.7 % 0.2-1. 2 high Not Available [address], [address], 02/22/2016 15:10:48 02/22/20 16 02/22/2016 CBC baso# 0.1 0.0-0. 1 high Not Available [address], [address], 02/22/2016 15:10:48 02/22/20 16 02/22/2016 CBC RDW-CV 12.3 % 11.6-1 4.4 Not Available [address], [address], 02/22/2016 15:10:48 02/22/20 16 02/22/2016 CMP, serum or plasm a glucose 105 mg/dL 70-100 high Not Available [address], [address], 02/22/2016 15:33:36 02/22/20 16 02/22/2016 CMP, serum or plasm a BUN 22 mg/dL 7-18 high Not Available [address], [address], 02/22/2016 15:33:36 02/22/20 16 02/22/2016 CMP, serum or plasm a creatinine 0.9 mg/dL 0.8-1. 3 Not Available [address], [address], 02/22/2016 15:33:36 02/22/20 16 02/22/2016 CMP, serum or plasm a B/C 24.4 ratio Not Available [address], [address], 02/22/2016 15:33:36 02/22/20 16 02/22/2016 CMP, serum or plasm a GFR -non 90.0 mL/mi n Recom vijay d GFR by the Natio nal Kidne y Found ation >60 mL/mi n/1.7 3m2 - Lynn l <60 mL/mi n/1.7 3m2 - Chron ic Kidne y Disea se <15 mL/mi n/1.7 3m2 - Kidne y Failu re Not Available [address], [address], 02/22/2016 15:33:36 02/22/20 16 02/22/2016 CMP, serum or plasm a GFR - if 108.9 mL/mi n For Afric an Ameri can patie nts: Resul ts Multi plied by 1.21 Not Available [address], [address], 02/22/2016 15:33:36 02/22/20 16 02/22/2016 CMP, serum or plasm a sodium 142 mmol/ L 136-14 5 Not Available [address], [address], 02/22/2016 15:33:36 02/22/20 16 02/22/2016 CMP, serum or plasm a potassium 4.6 mmol/ L 3.5-5. 1 Not Available [address], [address], 02/22/2016 15:33:36 02/22/20 16 02/22/2016 CMP, serum or plasm a chloride 106 mmol/ L 96-107 Not Available [address], [address], 02/22/2016 15:33:36 02/22/20 16 02/22/2016 CMP, serum or plasm a anion gap 8.3 5.0-15 .0 Not Available [address], [address], 02/22/2016 15:33:36 02/22/20 16 02/22/2016 CMP, serum or plasm a CO2 28 mmol/ L 21-32 Not Available [address], [address], 02/22/2016 15:33:36 02/22/20 16 02/22/2016 CMP, serum or plasm a calcium 8.5 mg/dL 8.5-10 .3 Not Available [address], [address], 02/22/2016 15:33:36 02/22/20 16 02/22/2016 CMP, serum or plasm a total protein 6.3 g/dL 6.4-8. 2 low Not Available [address], [address], 02/22/2016 15:33:36 02/22/20 16 02/22/2016 CMP, serum or plasm a albumin 3.7 g/dL 3.4-5. 0 Not Available [address], [address], 02/22/2016 15:33:36 02/22/20 16 02/22/2016 CMP, serum or plasm a globulin 2.6 g/dL Not Available [address], [address], 02/22/2016 15:33:36 02/22/20 16 02/22/2016 CMP, serum or plasm a A/G 1.4 ratio 0.8-2. 0 Not Available [address], [address], 02/22/2016 15:33:36 02/22/20 16 02/22/2016 CMP, serum or plasm a total bilirubin 0.40 mg/dL 0.00-1 .00 Not Available [address], [address], 02/22/2016 15:33:36 02/22/20 16 02/22/2016 CMP, serum or plasm a AST 11 U/L 15-37 low Not Available [address], [address], 02/22/2016 15:33:36 02/22/20 16 02/22/2016 CMP, serum or plasm a ALT 16 U/L 30-65 low Not Available [address], [address], 02/22/2016 15:33:36 02/22/20 16 02/22/2016 CMP, serum or plasm a alk. phos. 73 U/L 50-136 Not Available [address], [address], 02/22/2016 15:33:36 02/22/20 16 02/23/2016 TSH, serum or plasm a TSH 1.38 uIU/m L 0.50-6 .00 The Ameri can Colle ge of Endoc rinol ogy and Ameri can Thyro id Assoc iatio n recom mend goal TSH value s betwe en 0.4-4 .0 mIU/m L. Not Available [address], [address], 02/23/2016 10:09:46 02/22/20 16 02/23/2016 lyme disea se igg+i gm Ab, serum borrelia burgdorferi Ab 0.10 <0.90 <=0.9 0 - Negat sharon 0.91 - 1.09 - Equiv ocal >=1.1 0 - Posit sharon Not Available [address], [address], 02/23/2016 14:13:14 03/15/20 16 03/15/2016 ESR (eryt hrocy te sedim entat ion rate) , blood sed rate 1.0 0.0-20 .0 Not Available [address], [address], 03/15/2016 16:07:12 03/15/20 16 03/15/2016 C-kennedy ctive prote in, quant itati ve, serum or plasm a C-reactive protein -quant <2.0 mg/L 0.0-9. 0 < Not Available [address], [address], 03/15/2016 16:41:28 03/15/20 16 03/16/2016 lipid panel , serum cholesterol 202 mg/dL <200 mg/dl Maggie able 200-2 39 mg/dl Borde rline High >240 mg/dl High Not Available [address], [address], 03/16/2016 08:12:50 03/15/20 16 03/16/2016 lipid panel , serum triglyceride s 78 mg/dL <150 mg/dL Lynn l 150-1 99 mg/dL Borde rline High 200-4 99 mg/dL High >500 mg/dL Very High Not Available [address], [address], 03/16/2016 08:12:50 03/15/20 16 03/16/2016 lipid panel , serum direct HDL 76 mg/dL Not Available [address], [address], 03/16/2016 08:12:50 03/15/20 16 03/16/2016 LDL, actrachitou mandy , serum (OBS) LDL - calculated [...] r is not donald escalante. Not Available [address], [place], [address], 03/16/2016 08:12:50 03/15/20 16 03/16/2016 tb (M tuber culos is), ifn-g luciano domenico , blood quantiferon( R)-TB gold NEGATI VE negati ve normal Negat sharon test resul t. M. tuber culos is compl ex infec tion unlik hernan. Not Available [facility] [address], [address], 03/16/2016 21:54:36 03/15/20 16 03/16/2016 tb (M tuber culos is), ifn-g luciano domenico , blood nil 0.03 IU/mL normal Not Available [facility] [address], [address], 03/16/2016 21:54:36 03/15/20 16 03/16/2016 tb (M tuber culos is), ifn-g luciano domenico , blood mitogen-nil >10.00 IU/mL normal Not Available [facility] [address], [address], 03/16/2016 21:54:36 03/15/20 16 03/16/2016 tb (M [...] lito renteria, plehuseyin e refer to http: //[facility] tyler renteria.giovany stdia gnost ics.c om/fa q/QFT (This link is being provi ded for infor lito leija/ educa aly l purpo ses only. ) Not Available [facility] [address] [place] [address] B, [place], [address], 03/16/2016 21:54:36 02/22/20 16 02/22/2016 x-ray , [...] onical ly signed Shawnee rhodes: Werner Brown [facility] (Imaging) [address] , [place], [address], 02/22/2016 15:33:56 03/06/20 16 02/27/2016 CT, lung No observ ation record ed. [facility] [place] [address] [facility] [address], [place], [address], 03/06/2016 19:21:01 Result Notes None recorded. Problems Name Problem SNOMED Code Status Onset Date Resolution Date Notes Provider Name and Address Organization Details Recorded Time [facility]ence [facility] 10:36[facility]58 Injury of finger 99336005 Completed 200009/09/2013 Not Available [facility] 3 02:03:42 Presbyopia 44282519 Completed 200608/13/2017 Lucina Vo MD [address] [place] [address], [address] , [facility] 7 10:46:44 Cough 55794792 Completed 200209/09/2013 Not Available [facility] 3 02:01:05 Hordeolum 757183827 Completed 200209/09/2013 Not Available [facility] 3 02:03:42 Enthesopat hy of wrist AND/OR carpus 68899282 Completed 200009/09/2013 Not Available [facility] 3 02:03:35 Kidney stone 05099920 Completed 200508/13/2017 Lucina Vo MD [address] [place] [address], [address] , [facility] 7 10:46:56 Raynaud's disease 471301613 Active 2002 Not Available [facility] 3 03:06:14 Tobacco user 781636188 Active 2002 DILIP Todd [address] [place] [address], [address] , [facility] 6 10:36:20 Rosacea 229993862 Active 2003 Not Available [facility] 3 03:06:14 Hypermetro azar 93601851 Completed 200608/13/2017 Lucina Vo MD [address] [place] [address], [address] , [facility] 7 10:46:34 Atopic dermatitis 43978037 Active 2003 Not Available [facility] 3 03:06:14 Hyperplasi a of prostate 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 2000 Not Available [facility] 3 03:06:14 Benign neoplasm of large intestine 15246423 Completed 200508/13/2017 Lucina Vo MD [address] [place] [address], [address] , [facility] 7 10:46:53 Hearing loss 84213144 Active Not Available [facility] 3 03:06:14 Acne 76920323 Completed 200408/13/2017 Lucina Vo MD [address] [place] [address], [address] , [facility] 7 10:46:21 Low back pain 035526181 Active 2005 Not Available [facility] 3 03:06:14 Dysuria 26580666 Completed 09/09/2013 Not Available [facility] 3 02:01:59 Disorder of lower limb 435885432 Completed 200109/09/2013 Not Available [facility] 3 02:03:21 Pain in wrist 75722567 Completed 200009/09/2013 Not Available [facility] 3 02:02:22 Backache 475739265 Completed 200509/09/2013 Not Available [facility] 3 02:01:11 Pain in limb 61441549 Completed 200009/09/2013 Not Available [facility] 3 02:00:52 Problem Notes None recorded. Procedures Surgical History Date Name Laterality Status Provider Name and Address Organization Details Recorded Time 7 Smoking cessation counseling completed Nina Solano Clementina [facility] 08/13/2017 10:30:00 7 Medicare Wellness Visit completed Nina Solano Clementina [facility] 08/13/2017 10:24:12 7 Carbon Monoxide Testing completed Nina Solano [facility] 08/13/2017 10:30:00 7 Smoking cessation counseling completed DILIP Todd [address] [place] [address], [address], [facility] 07/29/2017 15:12:41 7 Carbon Monoxide Testing completed DILIP Todd [address] [place] [address], [address], [facility] 07/29/2017 15:12:41 6 Smoking cessation counseling completed Zuly Gardner [facility] 02/22/2016 10:04:22 4 Smoking cessation counseling cancelled Estela Ralph LPN [facility] 06/30/2014 16:37:00 3 Smoking cessation counseling completed Estela Small [facility] 04/02/2013 15:19:49 1 Smoking cessation counseling completed Susana Caro [facility] 06/05/2011 15:30:24 0 Shoulder (Left) Injection completed Kerwin Springer MD [address] [place] [address], [address], [facility] 05/23/2010 20:53:41 6 Hernia Repair completed Chaitanya Parr MD [address] [place] [address], [address], [facility] 07/14/2014 08:55:13 Imaging Results Imaging Date Name Status [facility]Modified by [facility] Details LastModified Time 02/22/2016 x-ray, chest completed [facility] ([facility]) [address], [place], [address], 02/22/2016 15:33:56 02/27/2016 CT, lung completed [facility] [place] [address] [facility] [address], [place], [address], 03/06/2016 19:21:01 Procedure Notes None recorded. Medical Equipment None Reported. Allergies Allergen ID Allergen Name Allergen Category Reaction Reaction Severity Criticality Documentation Date Start Date Code Code System Note Provider Name and Address Organization Details Recorded Time 65815 Product containin g penicilli n and antibioti c (product) medicatio n Not available Not available Not available 05/11/2010 64192 05 SNOMED Not Available [facility] 1 06:05:41 Medications Name Sig Start [...] Updated DateTime 7 173.36 cm 22.8 kg/m2 27858.8 5 g 72 /min 98 [degF] 120 mm[Hg] 66 mm[Hg] Zuly Gardner [facility] 7 14:36:58 Date Recorded Body height Systolic blood pressure Diastolic blood pressure Provider Name and Address Organization Details Last Updated DateTime 08/07/2017 173.36 cm 118 mm[Hg] 80 mm[Hg] Moon Soria [facility] 08/07/2017 09:01:41 Date Recorded Body height Body mass index (BMI) Body weight Heart rate Oxygen saturation Oxygen saturation in Arterial blood by Pulse oximetry Systolic blood pressure Diastolic blood pressure Provider Name and Address Organization Details Last Updated DateTime 7 172.21 cm 22.5 kg/m2 56346.0 8 g 70 /min 97 % 97 % 106 mm[Hg] 60 mm[Hg] LYNDON Hammer [facility] 7 10:34:01 Date Recorded Body height Body mass index (BMI) Body weight Systolic blood pressure Diastolic blood pressure Provider Name and Address Organization Details Last Updated DateTime 07/14/2014 173.355 cm 22.2 kg/m2 34132.07 839 g 130 mm[Hg] 82 mm[Hg] Adriana Rosa [facility] 4 08:40:14 Date Recorded Body weight Body mass index (BMI) Body height Body temperature Heart rate Systolic blood pressure Diastolic blood pressure Provider Name and Address Organization Details Last Updated DateTime 6 73887.7 97712 g 23 kg/m2 173.355 cm 97.8 [degF] 68 /min 126 mm[Hg] 80 mm[Hg] Zulyabby Gardner [place] [facility] 6 10:04:22 Date Recorded Oxygen saturation Oxygen saturation in Arterial blood by Pulse oximetry Provider Name and Address Organization Details Last Updated DateTime 02/22/2016 97 % 97 % DILIP Todd [address] [place] [address], [address], [facility] 02/22/2016 10:33:23 Social History Question Answer Notes LastModified by Organizat ion Details LastModified Time Tobacco Smoking Status Current Every Day Smoker couple ciggs daily 10.9.17 3 cigs QD 08/13/17 Zuly CecilyBRITNI singleton null, 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 0 Information not available 07/14/2014 Are There Any Guns Present In Your Home? Yes Administrative Analyst In [place] Information not available 07/14/2014 Live Alone Or With Others? With Others joey Information not available 06/30/2014 Patient Has Health Care Proxy Signed And In Chart No [email or web address] Information not available 08/11/2018 Marital Status Micaela Since 1973 Information not [...] available 07/14/2014 Sm[facility] Alarm [facility] Home [facility] Information not available 07/14/2014 At What Age [...] Td(adult) unspecified formulation 2 completed Not Available [facility] 09/05/2011 05:20:34 Past Encounters Encounter ID Performer Location Encounter Start Date Encounter Closed Date Diagnosis/Indication Diagnosis SNOMED-CT Code Diagnosis ICD10 Code Diagnosis Note [id number] [facility], OFFICE [address] [place] [address] 01/06/2001 13:45:00 11/10/2008 02:02:29 [id number] [facility], OFFICE [address] [place] [address] 01/20/2001 10:45:00 11/10/2008 02:02:29 [id number] [facility], OFFICE [address] [place] [address] 05/02/2001 15:00:00 11/10/2008 02:02:29 [id number] Radiology , [facility] [address] [place] [address] 05/02/2001 15:15:00 11/10/2008 02:02:29 [id number] Physical Therapy, [address] [address] 06/20/2001 12:30:00 11/10/2008 02:02:29 [id number] [facility], OFFICE [address] [place] [address] 08/24/2002 08:51:40 11/10/2008 02:02:29 [id number] [facility] [address] [address] 09/30/2002 18:23:57 11/10/2008 02:02:29 [id number] [facility], OFFICE [address] [place] [address] 12/16/2002 14:05:49 11/10/2008 02:02:29 [id number] [facility], OFFICE [address] [place] [address] 01/22/2003 14:39:02 11/10/2008 02:02:29 [id number] Optical [address] [address] 11/09/2003 15:37:02 11/09/2003 16:49:12 [id number] LAB - [facility] [address] [place] [address] 01/03/2004 14:48:39 01/03/2004 14:48:55 [id number] Radiology , [address] [address] 01/03/2004 14:47:01 01/03/2004 14:47:21 [id number] FP, [facility], OFFICE [address] [place] [address] 01/03/2004 13:55:09 01/04/2004 10:39:20 [id number] FP, [facility], OFFICE [address] [place] [address] 10/19/2004 15:58:41 10/21/2004 09:14:24 [id number] FP, DEC, [address] [place] [address] 01/31/2005 14:55:15 02/01/2005 10:11:24 [id number] FP, [facility], OFFICE [address] [place] [address] 02/14/2005 15:19:33 11/10/2008 02:02:29 [id number] FP, [facility], OFFICE [address] [place] [address] 10/30/2005 11:56:25 11/10/2008 02:02:29 [id number] FP, DEC, OFFICE [address] [place] [address] 01/01/2006 11:12:37 11/10/2008 02:02:29 [id number] Radiology , [facility] [address] [place] [place] [address] 01/01/2006 11:51:20 01/02/2006 09:28:40 [id number] Radiology , [facility] [address] [facility] [place] [address] 01/01/2006 00:00:00 11/10/2008 02:02:29 [id number] Radiology , [facility] [address] [facility] [place] [address] 01/21/2006 14:07:15 01/22/2006 08:47:47 [id number] Radiology , [facility] [address] [facility] [place] [address] 01/21/2006 00:00:00 11/10/2008 02:02:29 [id number] [facility] [address] [place] [address] 02/11/2006 09:19:52 02/13/2006 08:48:17 [id number] FP, [facility], OFFICE [address] [facility] [place] [address] 01/01/2006 00:00:00 11/10/2008 02:02:29 [id number] [facility], [address]ICE [address] [place] [address] 04/03/2007 14:38:17 04/04/2007 11:41:33 [id number] [facility], [facility] [address] [place] [address] 09/05/2007 12:42:18 09/05/2007 16:54:06 [id number] [facility], OFFICE [address] [place] [address] 05/11/2010 11:34:55 05/15/2010 10:30:11 [id number] [facility], OFFICE [address] [place] [address] 05/18/2010 14:21:14 05/29/2010 14:26:54 [id number] [facility] , [facility] [address] [place] [address] 05/18/2010 14:52:45 05/19/2010 14:34:19 [id number] [facility], OFFICE [address] [place] [address] 06/05/2011 15:08:04 06/06/2011 10:21:59 [id number] Fatemeh Tejeda [place] [facility], OFFICE [address] [place] [address] 02/01/2012 15:45:01 02/01/2012 16:18:12 [id number] Fatemeh Tejeda MA [facility], OFFICE [address] [place] [address] 04/02/2013 14:50:32 04/03/2013 10:56:06 [id number] Fatemeh Tejeda [place] [facility], OFFICE [address] [place] [address] 11/16/2013 14:51:51 11/17/2013 09:32:30 Pneumonia 597055844 f/u in 2 months for repeat cxr. call if not better Tobacco user 794859932 n icotine replacemen t products urged. Acute bronchitis 40891931 rest, hot liquids,hu midify air, call if worse [id number] Estela Ralph LPN [facility], OFFICE [address] [place] [address] 12/23/2013 15:19:16 12/23/2013 15:50:11 Tobacco user 186953170 since nicotime replacemen t didn't work for him. try welbbutrin take for 7 weeks . stopsmokin g after one week. s/e explained Pneumonia 887188745 CXR- negative pneumonia resolved [id number] Shara Hernandez , [facility], OFFICE [address] [place] [address] 07/14/2014 08:20:23 07/14/2014 09:02:56 Adult health examination 887385089 See Risk Assessment and Lifestyle Change Counseling section. Colonoscop y UTD (01/2006). Needs 10-year surveillan ce. Patient refuses Td and Influenza vaccines. Seat belt safety also discussed. Check FLP and Glucose. Counseling [id number] DILIP Todd , [facility], OFFICE [address] [place] [address] 02/22/2016 09:43:11 02/22/2016 11:07:05 Nicotine dependence 96219048 Z87.891 Tobacco user 678109187 Z 72.0 Fatigue 50512365 R53.83 Cough 73351413 R05 Dyspnea 805289382 R06.00 Joint pain 64614614 M25. 50 [id number] DILIP Todd , [facility], OFFICE [address] [place] [address] 07/29/2017 14:13:08 07/29/2017 15:16:35 Blepharitis 97833150 H01.9 Pain in toe 902842684 M7 9.675 Cigarette smoker 0483599 7 F17.210 will use hydrocorti sone before applying patch to decrease irritation of skin Tobacco user 668033259 Z 72.0 [id number] Ailin Izaguirre DPM Podiatry, [facility] [address] [place] [address] 08/07/2017 08:47:11 08/07/2017 09:20:44 Tobacco user 443764128 Z72.0 Pain in toe 614888886 M7 9.675 Pronation of foot 104900 03 M21.6X9 [id number] Lucina Vo MD , [facility], [address] [place] [address] 08/13/2017 10:18:57 08/13/2017 11:04:31 Adult health examination 551406237 Z00.00 see Risk Assessment and Lifestyle Change Counseling section above Counseling 609453226 Z71 .9 Cigarette smoker 0988204 7 F17.210 actively cutting backlozeng es helpfuldow n to 3-4 a daypartner closet smoker with himgoal to quit together, perhaps after long term cousneling /support ed today Tobacco user 552383316 Z 72.0 Hearing loss 29542604 H9 0.6 has hearing aides and follows with audiologis t regularly Impotence 483071820 N52. 9 has effect with drug but it is expensive for him Rosacea 100458858 L71.9 sx well managed with avoidance of triggers Low back pain 027599163 M54.5 intermitte nt, not active issuemanag es as needed with exercise, activity changes, occ OTC medication s Screening for disorder 655213918 Z11.59 Screening for malignant neoplasm of colon 908475507 Z12.11 Referral for a DIRECT booked colonoscop y. This patient is a healthy ASA Class 1 or 2 patient (only mild systemic disease), or a STABLE, well controlled insulin dependent diabetic. They do not have serious cardiac disease ie AK/angiopl asty within 1 year, symptomati c CHF; [...] 1 [place] [facility] ([place]) [id number] Ruslan Huertas [id number] Ruslan Huertas 02/22/2016 1 [employer] - [employer] ([place]) Ruslan Huertas [id number] Ruslan Huertas 07/29/2017 1 [facility] [id number] Ruslan Huertas [id number] Ruslan Huertas 08/07/2017 1 [facility] [id number] Ruslan Huertas [id number] Ruslan Huertas 08/13/2017 1 [facility] [id number] Ruslan Huertas [id number] Ruslan Huertas Notes Date Note Type Note Provider Name and Address Organization Details Recorded Time 07/14/2014 text/html Patient who is overall healthy here for a PHA visit. Bilateral hearing loss. Scheduled to have hearing aid fitting. Otherwise doing well. Denies F/C/N/V/D. Denies abdominal pain. Denies dysuria or hematuria. 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 Chaitanya Parr MD [address] [place] [address], [address], [facility] 07/14/2014 23:29:24 02/22/2016 text/html a/vmg-smoking [id number] bypatient.Importance On a scale of 1-10 with [...] chest pain, urianry hesitancy- chronic. DILIP Todd [address] [place], [address], [facility] 02/25/2016 09:43:42 07/29/2017 text/html a/vmg-smoking [id number] bypatient.Importance On a scale of 1-10 with 1 being not important and 10 being very important the patient rates importance of stopping smoking as ; important to quit= has copd Physiological Dependence/Health Eerz6nstk /dayNotes:uses patch but had rx left footpain x > 1 yr, flares with use on uneven terrain, agg with playing golf. left eye lump upper lid- no drINAGE. NO PAIN, DILIP Todd [address] [place], [address], [facility] 07/30/2017 15:21:29 08/07/2017 text/html Patient presents to the office complaining of pain in the middle toe of his left foot. Patient states he has been experiencing pain with increased activity especially on irregular terrain for a long time. Patient has not noticed any swelling or discoloration. Ailin Izaguirre DPM [address] [facility], [place], [address], [facility] 08/07/2017 09:40:15 08/13/2017 text/html Physical Exam/MaleReported [...] room and availability of urgent care at [facility]-smoking [id number] bypatient.Importance On a scale of 1-10 with 1 being not important and 10 being very important the patient rates importance of stopping smoking as 10; important to quit= has copd Physiological Dependence/Health Risk3-4 cigs /day Medication AssessmentHas used Patch in the past; Has used lozenges in the past health goals:trying to quit smokingworking full timesmokes out of habitconcerns: Lucina Vo MD [address] [place] [address], [address], [facility] 08/13/2017 12:20:04
[2024-12-03 13:18] VITALS: BP 120/70; PULSE 64; TEMP 36.6; O2SAT 96; BMI 21.9
== END 2024-12-03 13:45 | disposition home or self-care (01) ==
PROVIDERS: PCP Internal Medicine; Visit Provider Internal Medicine
DX: K52.9 Noninfective gastroenteritis and colitis, unspecified (principal); D36.9 Benign neoplasm, unspecified site

== ENCOUNTER → 2024-12-03 13:06 | Outpatient (BNVA) | payer MEDICARE, SELFPAY | PROVIDERS: PCP Internal Medicine; Visit Provider Internal Medicine | DX: K52.9 Noninfective gastroenteritis and colitis, unspecified (principal); D36.9 Benign neoplasm, unspecified site | CPT/HCPCS: 99212 ==

== ENCOUNTER 2024-12-05 08:08 | Outpatient (REF) | payer MEDICARE, SELFPAY ==
--- OUTSIDE RECORDS SUMMARY | 2024-12-05 08:11 | XMS_ITS | Patient Health Record ---
Author Organization [facility] Address [address] [place] [address] Care Team Providers Care First Aid Director Name Role Phone Evin JASON, Radha Primary Care Provider Unavail able Natanael Evans Unavailable [phone] Allergies Allergen (clinical drug ingredient) Drug/Non Drug [...] Problem Status W/U Status Risk Notes Problem [id number] Hammer toe of left foot (M20.42) Active confirmed Plan Of Treatment Pending Test Test Name Order Date X ray : Foot, left 3V 05/23/2022 Insurance Providers Payer Name Payer Address Payer Phone Subscriber Number Group Number Insured Name Patient Relationship to Insured Coverage Start Date Coverage End Date [employer] Medicare [id number] [address] [address] [place] [address] [id number] Ruslan Hoang Self - patient is the insured Medical (General) History Medical History History ICD Code Chicken pox Surgical History Surgery Date(Month/Year) hernia 2012
--- OUTSIDE RECORDS SUMMARY | 2024-12-05 08:11 | XMS_ITS | Data Portability ---
Author Organization [facility], , [facility] Address [address] [place] [address] Care Team Providers Care Thread Grinder Name Role Phone KERWIN SPRINGER Primary Care Provider [phone] MELBA SPRINGER Primary Care Provider AILIN IZAGUIRRE Operations Specialist [facility] [employer] Economics Professor CLAUDETTE MCLAIN [employer] Mixer Assessment Encounter Date Assessment Date Assessment LastModified by Organization Details LastModified Time 08/07/2017 08/07/2017 Metatarsalgia/ pain 3rd toe left foot, pes planovalgus deformity jerskine Not available 08/07/2017 09:39:25 Plan of Treatment Reminders Order Date Submit Date Provider Last Modified By Organization Details Last Modified Time Details Appointments None recorded. Lab lyme disease igg+igm Ab, serum 2015 016 [facility], [address] [place] [address], [address], 6 14:13:14 CMP, serum or plasma 2015 016 [facility], [address] [place] [address], [address], 6 15:33:36 CBC 2015 016 [facility], [address] [place] [address], [address], 6 15:10:48 TSH, serum or plasma 2015 016 [facility], [address] [place] [address], [address], 6 10:09:46 Referral client representative referral 2016 017 [facility] Ailin Izaguirre DPM, [address] [facility], [place], [address], 7 11:12:35 Procedures colonoscopy procedure (PROC) 2016 017 [email or web address] en1 [facility], [address] [facility], [place], [address], 7 10:30:13 Surgeries None recorded. Imaging x-ray, chest - smoker , with 6 wks fatigue- increasing cough. exam- decreased bs 2015 016 [facility] (Imaging), [address], [place], [address], 6 11:21:56 Medication Orders Cialis 20 mg tablet 2016 017 [email or web address] [facility][id number], [address], [place], [id number], 7 10:59:07 erythromyci n 5 mg/gram (0.5 %) eye ointment 2016 017 [facility] #[id number], [address], [place], [id number], 7 10:26:41 Patient Targets Encounter Date Encounter Id Patient Goals Patient Target Last Modified By Organization Details Last Modified Time Smoking cessation, see notes above [email or web address] Not available 08/13/2017 10:53:04 Patient Instructions Encounter Date Encounter Id Patient Instructions Last Modified By Organization Details Last Modified Time 07/14/2014 [id number] Well Visit 50 to 65: Care Instructions fkim Not available 07/14/2014 23:29:23 02/22/2016 [id number] Quitting Tobacco : Care Instructions ashelkey Not [...] 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 [facility] sponsor}} {{# adding exercise regular meals 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 id [facility] sponsor}}My Health To Do List {{# go to [place] or call sig n up for randolph text 2 quit or other stop smoking randolph contact [employer]asmo}} {{# go to [place] or call sig n up for randolph text 2 quit or other stop smoking randolph contact [employer].gov}} {{# go to [place] or call sig n up for randolph text 2 quit or other stop smoking randolph contact [employer].gov}} ashelkey Not available 02/22/2016 10:04:22 07/29/2017 [id number] deciding about using medicines to quit smoking [...] sponsor}}My Health To Do List {{go to [place] or call sig n up for randolph text 2 quit or other stop smoking randolph contact [employer].gov}} {{go to [employer] or call sig n up for randolph text 2 quit or other stop smoking randolph contact smokeTYFFON.gov}} {{go to [employer] or call sig n up for randolph text 2 quit or other stop smoking randolph contact [employer].gov}} aesrick Not available 07/29/2017 15:12:41 08/07/2017 [id number] Patient states h e will pursue prefabricated [...] sponsor}}My Health To Do List {{go to [employer] or call sig n up for randolph text 2 quit or other stop smoking randolph contact smokeTYFFON.gov}} {{go to [employer] or call sig n up for randolph text 2 quit or other stop smoking randolph contact [employer]TYFFON.gov}} {{go to [employer] or call sig n up for randolph text 2 quit or other stop smoking randolph contact smokeTYFFON.gov}} Not available 08/07/2017 09:13:44 08/13/2017 [id number] deciding about using medicines to quit smoking [...] life expectancy. Pt declines all vaccinations despite correctional substance abuse counselor. He is enc to consider and [...] My Health To Do List {{go to [employer] www[employer] or call * si gn up for randolph text 2 quit or other stop smoking randolph contact [employer].gov}} {{go to [employer] [place] or call sig n up for randolph text 2 quit or other stop smoking randolph contact [employer].gov}} {{go to [employer] or call sig n up for randolph text 2 quit or other stop smoking randolph contact [employer]asmo}} diamond Not available 08/13/2017 12:19:04 Reason for Referral Operations Specialist Referral for Pain in toe Referring Physician: Melba Springer, Family Medicine, Encounter Date: 07/29/2017 Results Created Date Observation Date Name Description Value Unit Range Abnormal Flag Note LastModifiedBy Organization Detail LastModifiedTime 02/22/20 16 02/22/2016 CBC WBC 4.7 K/??L 4.2-9. 1 Not Available [address], [address], 02/22/2016 15:10:48 02/22/20 16 02/22/2016 CBC RBC 4.32 M/??L 4.63-6 .08 low Not Available [address], [address], 02/22/2016 15:10:48 02/22/20 16 02/22/2016 CBC HGB 14.2 g/dL 13.7-1 7.5 Not Available [address], [address], 02/22/2016 15:10:48 02/22/20 16 02/22/2016 CBC HCT 41.4 % 40.1-5 1.0 Not Available [address], [address], 02/22/2016 15:10:48 02/22/20 16 02/22/2016 CBC MCV 95.8 ??L 79.0-9 2.2 high Not Available [address], [address], 02/22/2016 15:10:48 02/22/20 16 02/22/2016 CBC MCH 32.9 pg 25.7-3 2.2 high Not Available [address], [address], 02/22/2016 15:10:48 02/22/20 16 02/22/2016 CBC MCHC 34.3 g/dL 32.3-3 6.5 Not Available [address], [address], 02/22/2016 15:10:48 02/22/20 16 02/22/2016 CBC plt 198.0 K/??L 163.0- 337.0 Not Available [address], [address], 02/22/2016 15:10:48 02/22/20 16 02/22/2016 CBC MPV 10.9 9.4-12 .4 Not Available [address], [address], 02/22/2016 15:10:48 02/22/20 16 02/22/2016 CBC neut% 60.2 % 34.0-6 7.9 Not Available [address], [address], 02/22/2016 15:10:48 02/22/20 16 02/22/2016 CBC neut# 2.9 1.8-5. 4 Not Available [address], [address], 02/22/2016 15:10:48 02/22/20 16 02/22/2016 CBC lymph % 24.3 % 21.8-5 3.1 Not Available [address], [address], 02/22/2016 15:10:48 02/22/20 16 02/22/2016 CBC lymph # 1.2 K/??L 1.3-3. 6 low Not Available [address], [address], 02/22/2016 15:10:48 02/22/20 16 02/22/2016 CBC mono% 10.6 % 5.3-12 .2 Not Available [address], [address], 02/22/2016 15:10:48 02/22/20 16 02/22/2016 CBC mono# 0.5 0.3-0. 8 Not Available [address], [address], 02/22/2016 15:10:48 02/22/20 16 02/22/2016 CBC eo% 3.2 % 0.8-7. 0 Not Available [address], [address], 02/22/2016 15:10:48 02/22/20 16 02/22/2016 CBC eo# 0.2 0.0-0. 5 Not Available [address], [address], 02/22/2016 15:10:48 02/22/20 16 02/22/2016 CBC baso% 1.7 % 0.2-1. 2 high Not Available [address], [address], 02/22/2016 15:10:48 02/22/20 16 02/22/2016 CBC baso# 0.1 0.0-0. 1 high Not Available [address], [address], 02/22/2016 15:10:48 02/22/20 16 02/22/2016 CBC RDW-CV 12.3 % 11.6-1 4.4 Not Available [address], [address], 02/22/2016 15:10:48 02/22/20 16 02/22/2016 CMP, serum or plasm a glucose 105 mg/dL 70-100 high Not Available [address], [address], 02/22/2016 15:33:36 02/22/20 16 02/22/2016 CMP, serum or plasm a BUN 22 mg/dL 7-18 high Not Available [address], [address], 02/22/2016 15:33:36 02/22/20 16 02/22/2016 CMP, serum or plasm a creatinine 0.9 mg/dL 0.8-1. 3 Not Available [address], [address], 02/22/2016 15:33:36 02/22/20 16 02/22/2016 CMP, serum or plasm a B/C 24.4 ratio Not Available [address], [address], 02/22/2016 15:33:36 02/22/20 16 02/22/2016 CMP, serum or plasm a GFR -non 90.0 mL/mi n Recom vijay d GFR by the Natio nal Kidne y Found ation >60 mL/mi n/1.7 3m2 - Lynn l <60 mL/mi n/1.7 3m2 - Chron ic Kidne y Disea se <15 mL/mi n/1.7 3m2 - Kidne y Failu re Not Available [address], [address], 02/22/2016 15:33:36 02/22/20 16 02/22/2016 CMP, serum or plasm a GFR - if 108.9 mL/mi n For Afric an Ameri can patie nts: Resul ts Multi plied by 1.21 Not Available [address], [address], 02/22/2016 15:33:36 02/22/20 16 02/22/2016 CMP, serum or plasm a sodium 142 mmol/ L 136-14 5 Not Available [address], [address], 02/22/2016 15:33:36 02/22/20 16 02/22/2016 CMP, serum or plasm a potassium 4.6 mmol/ L 3.5-5. 1 Not Available [address], [address], 02/22/2016 15:33:36 02/22/20 16 02/22/2016 CMP, serum or plasm a chloride 106 mmol/ L 96-107 Not Available [address], [address], 02/22/2016 15:33:36 02/22/20 16 02/22/2016 CMP, serum or plasm a anion gap 8.3 5.0-15 .0 Not Available [address], [address], 02/22/2016 15:33:36 02/22/20 16 02/22/2016 CMP, serum or plasm a CO2 28 mmol/ L 21-32 Not Available [address], [address], 02/22/2016 15:33:36 02/22/20 16 02/22/2016 CMP, serum or plasm a calcium 8.5 mg/dL 8.5-10 .3 Not Available [address], [address], 02/22/2016 15:33:36 02/22/20 16 02/22/2016 CMP, serum or plasm a total protein 6.3 g/dL 6.4-8. 2 low Not Available [address], [address], 02/22/2016 15:33:36 02/22/20 16 02/22/2016 CMP, serum or plasm a albumin 3.7 g/dL 3.4-5. 0 Not Available [address], [address], 02/22/2016 15:33:36 02/22/20 16 02/22/2016 CMP, serum or plasm a globulin 2.6 g/dL Not Available [address], [address], 02/22/2016 15:33:36 02/22/20 16 02/22/2016 CMP, serum or plasm a A/G 1.4 ratio 0.8-2. 0 Not Available [address], [address], 02/22/2016 15:33:36 02/22/20 16 02/22/2016 CMP, serum or plasm a total bilirubin 0.40 mg/dL 0.00-1 .00 Not Available [address], [address], 02/22/2016 15:33:36 02/22/20 16 02/22/2016 CMP, serum or plasm a AST 11 U/L 15-37 low Not Available [address], [address], 02/22/2016 15:33:36 02/22/20 16 02/22/2016 CMP, serum or plasm a ALT 16 U/L 30-65 low Not Available [address], [address], 02/22/2016 15:33:36 02/22/20 16 02/22/2016 CMP, serum or plasm a alk. phos. 73 U/L 50-136 Not Available [address], [address], 02/22/2016 15:33:36 02/22/20 16 02/23/2016 TSH, serum or plasm a TSH 1.38 uIU/m L 0.50-6 .00 The Ameri can Colle ge of Endoc rinol ogy and Ameri can Thyro id Assoc iatio n recom mend goal TSH value s betwe en 0.4-4 .0 mIU/m L. Not Available [address], [address], 02/23/2016 10:09:46 02/22/20 16 02/23/2016 lyme disea se igg+i gm Ab, serum borrelia burgdorferi Ab 0.10 <0.90 <=0.9 0 - Negat sharon 0.91 - 1.09 - Equiv ocal >=1.1 0 - Posit sharon Not Available [address], [address], 02/23/2016 14:13:14 03/15/20 16 03/15/2016 ESR (eryt hrocy te sedim entat ion rate) , blood sed rate 1.0 0.0-20 .0 Not Available [address], [address], 03/15/2016 16:07:12 03/15/20 16 03/15/2016 C-kennedy ctive prote in, quant itati ve, serum or plasm a C-reactive protein -quant <2.0 mg/L 0.0-9. 0 < Not Available [address], [address], 03/15/2016 16:41:28 03/15/20 16 03/16/2016 lipid panel , serum cholesterol 202 mg/dL <200 mg/dl Maggie able 200-2 39 mg/dl Borde rline High >240 mg/dl High Not Available [address], [address], 03/16/2016 08:12:50 03/15/20 16 03/16/2016 lipid panel , serum triglyceride s 78 mg/dL <150 mg/dL Lynn l 150-1 99 mg/dL Borde rline High 200-4 99 mg/dL High >500 mg/dL Very High Not Available [address], [address], 03/16/2016 08:12:50 03/15/20 16 03/16/2016 lipid panel , serum direct HDL 76 mg/dL Not Available [address], [address], 03/16/2016 08:12:50 03/15/20 16 03/16/2016 LDL, catrachitou [...] r is not donald escalante. Not Available [address], [place], [address], 03/16/2016 08:12:50 03/15/20 16 03/16/2016 tb (M tuber culos is), ifn-g luciano domenico , blood quantiferon( R)-TB gold NEGATI VE negati ve normal Negat sharon test resul t. M. tuber culos is compl ex infec tion unlik hernan. Not Available [facility] [address], [address], 03/16/2016 21:54:36 03/15/20 16 03/16/2016 tb (M tuber culos is), ifn-g luciano domenico , blood nil 0.03 IU/mL normal Not Available [facility] [address], [address], 03/16/2016 21:54:36 03/15/20 16 03/16/2016 tb (M tuber culos is), ifn-g luciano domenico , blood mitogen-nil >10.00 IU/mL normal Not Available [facility] [address], [address], 03/16/2016 21:54:36 03/15/20 16 03/16/2016 tb (M [...] lito renteria, plehuseyin e refer to http: //[facility] renteria.giovany stdia gnost ics.c om/fa q/QFT (This link is being provi ded for infor lito leija/ educa aly l purpo ses only. ) Not Available [facility] [address] [place] [address] B, [place], [address], 03/16/2016 21:54:36 02/22/20 16 02/22/2016 x-ray , [...] onical ly signed Shawnee rhodes: Werner Brown [facility] (Imaging) [address] , [place], [address], 02/22/2016 15:33:56 03/06/20 16 02/27/2016 CT, lung No observ ation record ed. [facility] [address] [facility] [address], [place], [address], 03/06/2016 19:21:01 Result Notes None recorded. Problems Name Problem SNOMED Code Status Onset Date Resolution Date Notes Provider Name and Address Organization Details Recorded Time [facility] 5 10:36:58 Injury of finger 75182824 Completed 200009/09/2013 Not Available [facility] 3 02:03:42 Presbyopia 53872102 Completed 200608/13/2017 Lucina Vo MD [address] [place] [address], [address] , [facility] 7 10:46:44 Cough 41050524 Completed 200209/09/2013 Not Available [facility] 3 02:01:05 Hordeolum 691803747 Completed 200209/09/2013 Not Available [facility] 3 02:03:42 Enthesopat hy of wrist AND/OR carpus 84713091 Completed 200009/09/2013 Not Available [facility] 3 02:03:35 Kidney stone 27387440 Completed 200508/13/2017 Lucina Vo MD [address] [place] [address], [address] , [facility] 7 10:46:56 Raynaud's disease 108485062 Active 2002 Not Available [facility] 3 03:06:14 Tobacco user 428047304 Active 2002 DILIP Todd [address] [place] [address], [address] , [facility] 6 10:36:20 Rosacea 858005211 Active 2003 Not Available [facility] 3 03:06:14 Hypermetro azar 77298242 Completed 200608/13/2017 Lucina Vo MD [address] [place] [address], [address] , [facility] 7 10:46:34 Atopic dermatitis 52098368 Active 2003 Not Available [facility] 3 03:06:14 Hyperplasi a of prostate 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 Active 2000 Not Available [facility] 3 03:06:14 Benign neoplasm of large intestine 78540615 Completed 200508/13/2017 Lucina Vo MD [address] [place] [address], [address] , [facility] 7 10:46:53 Hearing loss 46106243 Active Not Available [facility] 3 03:06:14 Acne 99216795 Completed 200408/13/2017 Lucina Vo MD [address] [place] [address], [address] , [facility] 7 10:46:21 Low back pain 369389347 Active 2005 Not Available [facility] 3 03:06:14 Dysuria 88742658 Completed 09/09/2013 Not Available [facility] 3 02:01:59 Disorder of lower limb 197459415 Completed 200109/09/2013 Not Available [facility] 3 02:03:21 Pain in wrist 12675977 Completed 200009/09/2013 Not Available [facility] 3 02:02:22 Backache 908506871 Completed 200509/09/2013 Not Available [facility] 3 02:01:11 Pain in limb 41209426 Completed 200009/09/2013 Not Available [facility] 3 02:00:52 Problem Notes None recorded. Procedures Surgical History Date Name Laterality Status Provider Name and Address Organization Details Recorded Time 7 Smoking cessation counseling completed Nina Solano Clementina [facility] 08/13/2017 10:30:00 7 Medicare Wellness Visit completed Nina Solano Clementina [facility] 08/13/2017 10:24:12 7 Carbon Monoxide Testing completed Nina Solano [facility] 08/13/2017 10:30:00 7 Smoking cessation counseling completed DILIP Todd [address] [place] [address], [address], [facility] 07/29/2017 15:12:41 7 Carbon Monoxide Testing completed DILIP Todd [address] [place] [address], [address], [facility] 07/29/2017 15:12:41 6 Smoking cessation counseling completed Zuly Gardner [facility] 02/22/2016 10:04:22 4 Smoking cessation counseling cancelled Estela Ralph LPN [facility] 06/30/2014 16:37:00 3 Smoking cessation counseling completed Estela Small [facility] 04/02/2013 15:19:49 1 Smoking cessation counseling completed Susana Caro [facility] 06/05/2011 15:30:24 0 Shoulder (Left) Injection completed Kerwin Springer MD [address] [place] [address], [address], [facility] 05/23/2010 20:53:41 6 Hernia Repair completed Chaitanya Parr MD [address] [place] [address], [address], [facility] 07/14/2014 08:55:13 Imaging Results Imaging Date Name Status [facility]Modified by [facility] Details LastModified Time 02/22/2016 x-ray, chest completed [facility] ([facility]) [address], [place], [address], 02/22/2016 15:33:56 02/27/2016 CT, lung completed blake [facility] [address] [facility] [address], [place], [address], 03/06/2016 19:21:01 Procedure Notes None recorded. Medical Equipment None Reported. Allergies Allergen ID Allergen Name Allergen Category Reaction Reaction Severity Criticality Documentation Date Start Date Code Code System Note Provider Name and Address Organization Details Recorded Time 34126 Product containin g penicilli n and antibioti c (product) medicatio n Not available Not available Not available 05/11/2010 58132 05 SNOMED Not Available [facility] 1 06:05:41 Medications Name Sig Start Date [...] Updated DateTime 7 173.36 cm 22.8 kg/m2 25306.8 5 g 72 /min 98 [degF] 120 mm[Hg] 66 mm[Hg] Zuly Gardner [facility] 7 14:36:58 Date Recorded Body height Systolic blood pressure Diastolic blood pressure Provider Name and Address Organization Details Last Updated DateTime 08/07/2017 173.36 cm 118 mm[Hg] 80 mm[Hg] Moon Soria [facility] 08/07/2017 09:01:41 Date Recorded Body height Body mass index (BMI) Body weight Heart rate Oxygen saturation Oxygen saturation in Arterial blood by Pulse oximetry Systolic blood pressure Diastolic blood pressure Provider Name and Address Organization Details Last Updated DateTime 7 172.21 cm 22.5 kg/m2 57340.0 8 g 70 /min 97 % 97 % 106 mm[Hg] 60 mm[Hg] LYNDON Hammer [facility] 7 10:34:01 Date Recorded Body height Body mass index (BMI) Body weight Systolic blood pressure Diastolic blood pressure Provider Name and Address Organization Details Last Updated DateTime 07/14/2014 173.355 cm 22.2 kg/m2 95771.07 839 g 130 mm[Hg] 82 mm[Hg] Adriana Rosa [facility] 4 08:40:14 Date Recorded Body weight Body mass index (BMI) Body height Body temperature Heart rate Systolic blood pressure Diastolic blood pressure Provider Name and Address Organization Details Last Updated DateTime 6 42012.7 47411 g 23 kg/m2 173.355 cm 97.8 [degF] 68 /min 126 mm[Hg] 80 mm[Hg] Zulyabby Gardner MA [facility] 6 10:04:22 Date Recorded Oxygen saturation Oxygen saturation in Arterial blood by Pulse oximetry Provider Name and Address Organization Details Last Updated DateTime 02/22/2016 97 % 97 % DILIP Todd [address] [place] [address], [address], [facility] 02/22/2016 10:33:23 Social History Question Answer Notes LastModified by Organizat ion Details LastModified Time Tobacco Smoking Status Current Every Day Smoker couple ciggs daily 10.9.17 3 cigs QD 08/13/17 Zuly CecilyBRITNI singleton null, [facility] 02/22/2016 10:01:40 What Is Your Level [...] not available 08/13/2017 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 Information not available 07/14/2014 How Many Days In The Past Year Have You Had A Heavy Drinking Consumption (4+ Female, 5+ Male)? 0 Information not available 07/14/2014 Are There Any Guns Present In Your Home? 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 In [place] Information not available 07/14/2014 Live Alone Or [...] available 07/14/2014 Smoke Alarm In Home Yes [facility] Information not available 07/14/2014 At What Age [...] Td(adult) unspecified formulation 2 completed Not Available [facility] 09/05/2011 05:20:34 Past Encounters Encounter ID Performer Location Encounter Start Date Encounter Closed Date Diagnosis/Indication Diagnosis SNOMED-CT Code Diagnosis ICD10 Code Diagnosis Note [id number] [facility], OFFICE [address] [place] [address] 01/06/2001 13:45:00 11/10/2008 02:02:29 [id number] [facility], OFFICE [address] [place] [address] 01/20/2001 10:45:00 11/10/2008 02:02:29 [id number] [facility], OFFICE [address] [place] [address] 05/02/2001 15:00:00 11/10/2008 02:02:29 [id number] Radiology , [facility] [address] [place] [address] 05/02/2001 15:15:00 11/10/2008 02:02:29 [id number] Physical Therapy, [address] [address] 06/20/2001 12:30:00 11/10/2008 02:02:29 [id number] [facility], OFFICE [address] [place] [address] 08/24/2002 08:51:40 11/10/2008 02:02:29 [id number] [facility] [address] [address] 09/30/2002 18:23:57 11/10/2008 02:02:29 [id number] [facility], OFFICE [address] [place] [address] 12/16/2002 14:05:49 11/10/2008 02:02:29 [id number] [facility], OFFICE [address] [place] [address] 01/22/2003 14:39:02 11/10/2008 02:02:29 [id number] Optical [address] [address] 11/09/2003 15:37:02 11/09/2003 16:49:12 [id number] LAB - [facility] [address] [place] [address] 01/03/2004 14:48:39 01/03/2004 14:48:55 [id number] Radiology , [address] [address] 01/03/2004 14:47:01 01/03/2004 14:47:21 [id number] FP, [facility], OFFICE [address] [place] [address] 01/03/2004 13:55:09 01/04/2004 10:39:20 [id number] FP, [facility], OFFICE [address] [place] [address] 10/19/2004 15:58:41 10/21/2004 09:14:24 [id number] FP, [place], OFFICE [address] [place] [address] 01/31/2005 14:55:15 02/01/2005 10:11:24 [id number] FP, [facility], OFFICE [address] [place] [address] 02/14/2005 15:19:33 11/10/2008 02:02:29 [id number] FP, [facility], OFFICE [address] [facility] [place] [address] 10/30/2005 11:56:25 11/10/2008 02:02:29 [id number] FP, [place], OFFICE [address] [facility] [place] [address] 01/01/2006 11:12:37 11/10/2008 02:02:29 [id number] Radiology , [facility] [address] [place] [address] 01/01/2006 11:51:20 01/02/2006 09:28:40 [id number] Radiology , [facility] [address] [facility] [place] [address] 01/01/2006 00:00:00 11/10/2008 02:02:29 [id number] Radiology , [facility] [address] [facility] [place] [address] 01/21/2006 14:07:15 01/22/2006 08:47:47 [id number] Radiology , [facility] [address] [facility] [place] [address] 01/21/2006 00:00:00 11/10/2008 02:02:29 [id number] [facility] [address] [place] [address] 02/11/2006 09:19:52 02/13/2006 08:48:17 [id number] FP, [facility], OFFICE [address] [facility] [place] [address] 01/01/2006 00:00:00 11/10/2008 02:02:29 [id number] [facility], OFFICE [address] [place] [address] 04/03/2007 14:38:17 04/04/2007 11:41:33 [id number] [facility], [facility] [address] [place] [address] 09/05/2007 12:42:18 09/05/2007 16:54:06 [id number] [facility], OFFICE [address] [place] [address] 05/11/2010 11:34:55 05/15/2010 10:30:11 [id number] [facility], OFFICE [address] [place] [address] 05/18/2010 14:21:14 05/29/2010 14:26:54 [id number] [facility] , [facility] [address] [place] [address] 05/18/2010 14:52:45 05/19/2010 14:34:19 [id number] [facility], OFFICE [address] [place] [address] 06/05/2011 15:08:04 06/06/2011 10:21:59 [id number] Fatemeh Tejeda MA [facility], OFFICE [address] [place] [address] 02/01/2012 15:45:01 02/01/2012 16:18:12 [id number] Fatemeh Tejeda MA [facility], OFFICE [address] [place] [address] 04/02/2013 14:50:32 04/03/2013 10:56:06 [id number] Fatemeh Tejeda MA [facility], OFFICE [address] [place] [address] 11/16/2013 14:51:51 11/17/2013 09:32:30 Pneumonia 145770650 f/u in 2 months for repeat cxr. call if not better Tobacco user 702103860 n icotine replacemen t products urged. Acute bronchitis 62016130 rest, hot liquids,hu midify air, call if worse [id number] Estela Ralph LPN [facility], OFFICE [address] [place] [address] 12/23/2013 15:19:16 12/23/2013 15:50:11 Tobacco user 827015241 since nicotime replacemen t didn't work for him. try welbbutrin take for 7 weeks . stopsmokin g after one week. s/e explained Pneumonia 402689310 CXR- negative pneumonia resolved [id number] Shara Hernandez , [facility], OFFICE [address] [place] [address] 07/14/2014 08:20:23 07/14/2014 09:02:56 Adult health examination 225735322 See Risk Assessment and Lifestyle Change Counseling section. Colonoscop y UTD (01/2006). Needs 10-year surveillan ce. Patient refuses Td and Influenza vaccines. Seat belt safety also discussed. Check FLP and Glucose. Counseling [id number] DILIP Todd , [facility], OFFICE [address] [place] [address] 02/22/2016 09:43:11 02/22/2016 11:07:05 Nicotine dependence 07310759 Z87.891 Tobacco user 460004509 Z 72.0 Fatigue 12155961 R53.83 Cough 38841711 R05 Dyspnea 469042883 R06.00 Joint pain 88833029 M25. 50 [id number] DILIP Todd , [facility], OFFICE [address] [place] [address] 07/29/2017 14:13:08 07/29/2017 15:16:35 Blepharitis 21579835 H01.9 Pain in toe 785163266 M7 9.675 Cigarette smoker 5111493 7 F17.210 will use hydrocorti sone before applying patch to decrease irritation of skin Tobacco user 691649383 Z 72.0 [id number] Ailin Izaguirre DPM Podiatry, [facility] [address] [place] [address] 08/07/2017 08:47:11 08/07/2017 09:20:44 Tobacco user 497690983 Z72.0 Pain in toe 771697114 M7 9.675 Pronation of foot 870528 03 M21.6X9 [id number] Lucina Vo MD , [facility], OFFICE [address] [place] [address] 08/13/2017 10:18:57 08/13/2017 11:04:31 Adult health examination 703779421 Z00.00 see Risk Assessment and Lifestyle Change Counseling section above Counseling 677727469 Z71 .9 Cigarette smoker 7724923 7 F17.210 actively cutting backlozeng es helpfuldow n to 3-4 a daypartner closet smoker with himgoal to quit together, perhaps after jail cousneling /support ed today Tobacco user 958585468 Z 72.0 Hearing loss 08060121 H9 0.6 has hearing aides and follows with audiologis t regularly Impotence 141189167 N52. 9 has effect with drug but it is expensive for him Rosacea 536048864 L71.9 sx well managed with avoidance of triggers Low back pain 008469103 M54.5 intermitte nt, not active issuemanag es as needed with exercise, activity changes, occ OTC medication s Screening for disorder 983868086 Z11.59 Screening for malignant neoplasm of colon 836262104 Z12.11 Referral for a DIRECT booked colonoscop y. This patient is a healthy ASA Class 1 or 2 patient (only mild systemic disease), or a STABLE, well controlled insulin dependent diabetic. They do not have serious cardiac disease ie [place]/angiopl asty within 1 year, symptomati c CHF; [...] 1 [place] [facility] ([place]) [id number] Ruslan Huertas [id number] Ruslan Huertas 02/22/2016 1 [employer] - [facility] (PPO) Ruslan Huertas [id number] Ruslan Huertas 07/29/2017 1 [facility] [id number] Ruslan Huertas [id number] Ruslan Huertas 08/07/2017 1 [facility] [id number] Ruslan Huertas [id number] Ruslan Huertas 08/13/2017 1 [facility] [id number] Ruslan Huertas [id number] Ruslan Huertas Notes Date Note Type Note Provider Name and Address Organization Details Recorded Time 07/14/2014 text/html Patient who is overall healthy here for a PHA visit. Bilateral hearing loss. Scheduled to have hearing aid fitting. Otherwise doing well. Denies F/C/N/V/D. Denies abdominal pain. Denies dysuria or hematuria. 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 Chaitanya Parr MD [address] [place] [address], [address], [facility] 07/14/2014 23:29:24 02/22/2016 text/html a/vmg-smoking [id number] bypatient.Importance On a scale of 1-10 with [...] pain, urianry hesitancy- chronic. DILIP Todd [address] [place], [address], [facility] 02/25/2016 09:43:42 07/29/2017 text/html a/vmg-smoking [id number] bypatient.Importance On a scale of 1-10 with 1 being not important and 10 being very important the patient rates importance of stopping smoking as ; important to quit= has copd Physiological Dependence/Health [id number] /dayNotes:uses patch but had rx left footpain x > 1 yr, flares with use on uneven terrain, agg with playing golf. left eye lump upper lid- no drINAGE. NO PAIN, DILIP Todd [address] [place], [address], [facility] 07/30/2017 15:21:29 08/07/2017 text/html Patient presents to the office complaining of pain in the middle toe of his left foot. Patient states he has been experiencing pain with increased activity especially on irregular terrain for a long time. Patient has not noticed any swelling or discoloration. Ailin Izaguirre DPM [address] [facility], [place], [address], [facility] 08/07/2017 09:40:15 08/13/2017 text/html Physical Exam/MaleReported [...] room and availability of urgent care at [facility] [place]-smoking [id number] bypatient.Importance On a scale of 1-10 with 1 being not important and 10 being very important the patient rates importance of stopping smoking as 10; important to quit= has copd Physiological Dependence/Health Risk3-4 cigs /day Medication AssessmentHas used Patch in the past; Has used lozenges in the past health goals:trying to quit smokingworking full timesmokes out of habitconcerns: Lucina Vo MD [address] [place] [address], [phone], [facility] 08/13/2017 12:20:04
[2024-12-10 19:44] LABS: Calprotectin, Fecal 1030 mcg/g
== END 2024-12-05 08:09 | disposition home or self-care (01) ==
LOC: HO.LNP 08:08
PROVIDERS: Visit Provider Internal Medicine
DX: K52.9 Noninfective gastroenteritis and colitis, unspecified (principal)
CPT/HCPCS: 83993

== ENCOUNTER 2024-12-16 13:54 | Outpatient (AMB) | payer MEDICARE, SELFPAY ==
--- NOTE | 2024-12-16 13:54 | MHC.OFFVIS ---
Vital Signs 12/16/24 13:57 Height 5 ft 8 in Weight 136 lb 10.986 oz BMI 20.8 BP 111/81 Blood Pressure Location Lt brachial Position Sitting Pulse 81 Intake Visit Reasons: med Intake Note: Ruslan presents in the office as a follow up for medications. CC:He states he has a tenderness on the left side of his abdomen. He is not sure if he pulled a muscle. He states pantoprazole is giving him headaches so he had to stop taking it. Principal Product Manager Required: No Allergies penicillin G Allergy (Unknown, Verified 12/16/24 13:58) hives HPI Comments Details: 74 y.o M with PMH of tobacco use disorder, hernia surgery, who is here for abnormal CT scan. Reports almost 2 months of mushy stools 7/day including night time sx, assoc with blood in stool, with RLQ pain. Discomfort is there all the time. Has lost appetite. thinks visually seems to have lost weight. Was seen by PCP who ordered CT abd/pel that shows segmental areas of colon wall thickness. Of note - pt was seen in office in 2020 as well for similar sx but was lost to follow up at that time. Attempt was made by pcp office to book for colo which the pt declined (see workloads 2021) Smokes 0.5PPD x 55 years. EtOH use 2-3 beers a day. Father: pancreatic ca at age 80 Mother: gastric ulcers 11/24/24: EGD/colo 1. Normal esophagus (biopsy) 2. Gastritis (biopsy) 3. Duodenitis (biopsy) 4. Proctocolitis (biopsy) 5. Internal and external hemorrhoids Path: A. Duodenum, biopsy: Duodenal mucosa with predominantly preserved villi and focal features of chronic/non-specific duodenitis. B. Duodenal polyp: Polypoid duodenal mucosa with features of chronic/non-specific duodenitis; no adenomatous dysplasia seen. C. Stomach, random, biopsy: Gastric antral and body mucosa with focal minimal chronic inactive inflammation; negative for H. pylori, intestinal metaplasia and dysplasia. D. Terminal ileum, biopsy: Ileal mucosa with no specific change. E. Colon, cecum, biopsy: Colonic mucosa with no specific change. F. Colon, ascending, biopsy: Colonic mucosa with no specific change. G. Colon, transverse, biopsy: Moderate active colitis with mild chronic features; no granulomas or dysplasia. H. Colon, descending, biopsy: Moderate active colitis with mild chronic features; no granulomas or dysplasia. I. Colon, sigmoid, biopsy: Moderate active colitis with mild chronic features; no granulomas or dysplasia. G. Colon, rectum, biopsy: Moderate active colitis with mild chronic features; no granulomas or dysplasia. Comment: Basal lymphoplasmacytic infiltrates and chronic regenerative crypt changes are mild. This likely represents early chronic inflammatory bowel disease, but infection is not excluded and clinical correlation is necessary. 12/16/24: Here for follow up. Pt was reminded of results relayed by RN on 12/01. Kiery galeano has a high copay ($500!). Checked with [facility] [place] as well. Pt reports improvement in sx however his sx not correlating with colo and fecal calpro results. [facility] Medical History Smoker BPH (benign prostatic hyperplasia) COPD (chronic obstructive pulmonary disease) Surgical History Hx of colonoscopy (~2019) History of hernia surgery Family History Mother Stroke Father Pancreatic cancer Heart disease Sister Breast cancer Social History Household Members: Spouse Housing: House Alcohol intake: current Alcohol intake frequency: 3 or more drinks per day Alcohol type: beer Patient Tobacco Use Status: Current everyday Tobacco user Tobacco use type: Cigarette Cigarette Packs Per Day: 0.5 Cigarettes Per Day: 15 e-Cigarette/Vaping Use: Never Used Second Hand Smoke Exposure: Yes service: No Current occupational status: employed 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 [employer] Cognitive needs: No Hearing needs: Yes (hearing aide) Vision needs: Yes (reading glasses) Review of Systems Const All systems reviewed & are unremarkable except as noted in HPI and below Physical Exam Vital Signs: Last Vital Signs Pulse 81 12/16/24 13:57 BP 111/81 12/16/24 13:57 BMI result Body Mass Index 20.8 No apparent distress Nonicteric Abdomen soft, nondistended Alert and oriented x3, normal gait Assessment & Plan Assessment & Plan (1) Rectal bleeding: Code(s): K62.5 - Hemorrhage of anus and rectum Category: Medical (2) Diarrhea: Code(s): R19.7 - Diarrhea, unspecified Category: Medical (3) Weight loss: Code(s): R63.4 - Abnormal weight loss Category: Medical (4) Colitis: Code(s): K52.9 - Noninfective gastroenteritis and colitis, unspecified Category: Medical Plan Overall consistent with ulcerative colitis based on distribution of colitis. Reviewed that crohns remains in differentials given initial CT findings with patchy colitis - these were not seen on colo. Has low risk phenotype given age of onset and lack of Plan: - Uceris not covered. - Start prednisone 40 x 1 week followed by a 10mg/week taper - Recheck CRP and fecal calpro after 4 weeks - If in remission, will start oral and rectal mesalamine - If unable to achieve remission with pred, will consider vedo Follow up in 4 weeks Medications: New prednisone 4 pills once daily x 1 week, 3 pills once daily x 1 week, 2 pills once daily x 1 week and then 1 pill once daily x 1 week 70 tabs [address]-ER Discontinued Reason: Doctor's Order 9 mg PO DAILY 90 tabs 0RF Coding Level of Care Code Est Pt Level 4 (74981) Complex EM visit Add On G2211 Diagnoses Rectal bleeding K62.5 Diarrhea R19.7 Weight loss R63.4 Colitis K52.9
[2024-12-16 13:57] VITALS: BP 111/81; PULSE 81; BMI 20.8
--- OUTSIDE RECORDS SUMMARY | 2024-12-16 17:06 | XMS_ITS | Patient Health Record ---
Author Organization [facility] Address [address] [place] [address] Care Team Providers Care Spa Director/Finance Name Role Phone Evin JASON, Radha Primary Care Provider Unavail able Natanael Evans Unavailable [phone] Allergies Allergen (clinical drug ingredient) Drug/Non Drug [...] Problem Status W/U Status Risk Notes Problem [id number] Hammer toe of left foot (M20.42) Active confirmed Plan Of Treatment Pending Test Test Name Order Date X ray : Foot, left 3V 05/23/2022 Insurance Providers Payer Name Payer Address Payer Phone Subscriber Number Group Number Insured Name Patient Relationship to Insured Coverage Start Date Coverage End Date [employer] Medicare Adv-[id number] [address] [address] [place] [address] [id number] Ruslan Hoang Self - patient is the insured Medical (General) History Medical History History ICD Code Chicken pox Surgical History Surgery Date(Month/Year) hernia 2012
== END 2024-12-16 14:35 | disposition home or self-care (01) ==
PROVIDERS: PCP Internal Medicine; Visit Provider Internal Medicine
DX: K62.5 Hemorrhage of anus and rectum (principal); R63.4 Abnormal weight loss; K52.9 Noninfective gastroenteritis and colitis, unspecified
CPT/HCPCS: 99214; G2211

== ENCOUNTER → 2024-12-16 13:54 | Outpatient (BNVA) | payer MEDICARE, SELFPAY | PROVIDERS: PCP Internal Medicine; Visit Provider Internal Medicine | DX: K62.5 Hemorrhage of anus and rectum (principal); R63.4 Abnormal weight loss; K52.9 Noninfective gastroenteritis and colitis, unspecified | CPT/HCPCS: 99212 ==

== ENCOUNTER 2024-12-25 08:18 | Outpatient (AMB) | payer MEDICARE, SELFPAY ==
--- NOTE | 2024-12-25 08:19 | A.OFFVIS_ITS ---
Vital Signs 3 12/25/24 08:32 Height 5 ft 8 in Weight 143 lb BMI 21.7 BP 144/83 H Blood Pressure Location Lt brachial Position Sitting Pulse 107 H Intake Visit Reasons: Fleshy papilloma~ Lt ear lobe Intake Note: Patient is seen in office for evaluation and treatment of Left earlobe mass. Pt c/o: bilateral mass behind the earlobe for aprox one year, denies pain, discomfort, discharge, redness, would like to have it surgically removed Spinning Mule Operator Required: No Accompanied by: Self / Same As Patient Allergies penicillin G Allergy (Unknown, Verified 12/25/24 08:20) hives Medication List - Last Reconciled 12/25/24 by Noel Najera MD No Known Home Meds HPI Comments Details: 84-year-old male patient presenting for evaluation of a large lesion behind the left ear. This lesion has been present for many years in his gradually increasing in size. He denies any pain, redness or discharge. She denies any previous surgery in this location. He also has a smaller similar lesion located in the right ear lobe. He also complains of a skin lesion located in the right face below the right eye which causes irritation and he has requested excision of all 3 lesions. [facility] Medical History Smoker BPH (benign prostatic hyperplasia) COPD (chronic obstructive pulmonary disease) Surgical History Hx of colonoscopy (~2019) History of hernia surgery Family History Mother Stroke Father Pancreatic cancer Heart disease Sister Breast cancer Social History Household Members: Spouse Housing: House Alcohol intake: current Alcohol intake frequency: 3 or more drinks per day Alcohol type: beer Patient Tobacco Use Status: Current everyday Tobacco user Tobacco use type: Cigarette Cigarette Packs Per Day: 0.5 Cigarettes Per Day: 15 e-Cigarette/Vaping Use: Never Used Second Hand Smoke Exposure: Yes service: No Current occupational status: employed 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 [employer] Cognitive needs: No Hearing needs: Yes (hearing aide) Vision needs: Yes (reading glasses) Review of Systems Const All systems reviewed & are unremarkable except as noted in HPI and below Denies chills, Denies fever(s), Denies headache(s), Denies poor appetite and Denies weakness ENT Denies headache(s) Card Denies chest pain, Denies irregular heart rhythm, Denies palpitations and Denies dyspnea Resp Denies cough, Denies excessive phlegm production and Denies dyspnea GI Denies abdominal pain, Denies bloating, Denies change in bowel habits, Denies constipation, Denies heartburn, Denies diarrhea, Denies nausea and Denies vomiting Denies difficulty urinating and Denies urinary frequency Musc Denies back pain, Denies muscle weakness and Denies numbness Skin/Breast Denies changing lesions and Denies unusual bruising Neuro Denies headache(s), Denies numbness, Denies paresthesias and Denies weakness Psych Denies anxiety and Denies depression Endo Denies palpitations Christ/Lymph Denies lymphadenopathy Physical Exam Const General: cooperative and no acute distress Nutritional Appearance: well nourished Orientation/consciousness: patient oriented x3 Limitations: no limitations HEENT Head: Yes normocephalic and Yes atraumatic Head images: 2 1. 1.5 cm round soft tissue mass suggestive of a neurofibroma at the posterior left earlobe. 2. 0.5 cm round yellowish mass within the right earlobe similar but smaller than the left side 3. 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 These lesions have gradually appeared and are increasing in size. Patient denies any symptoms associated with the but is concerned because they are coming quite large. He also has an irritated skin lesion in the right face as noted above. Patient has requested excision of all 3 lesions. After discussion of the procedure, risks, and alternatives, he consents to excision of the bilateral earlobe neurofibromas and right face skin lesion. This will be performed as a minor surgery under local anesthesia. Coding Level of Care Code New Pt Level 4 (41679) Diagnoses Neurofibroma of external ear D36.11 Skin lesion of face L98.9
[2024-12-25 08:32] VITALS: BP 144/83; PULSE 107; BMI 21.7
--- OUTSIDE RECORDS SUMMARY | 2024-12-25 08:43 | XMS_ITS | Patient Health Record ---
Author Organization [facility] Address [address] [place] [address] Care Team Providers Care Mold Engraver Name Role Phone Evin JASON, Radha Primary Care Provider Unavail able Natanael Evans Unavailable [phone] Allergies Allergen (clinical drug ingredient) Drug/Non Drug [...] Problem Status W/U Status Risk Notes Problem [id number] Hammer toe of left foot (M20.42) Active confirmed Plan Of Treatment Pending Test Test Name Order Date X ray : Foot, left 3V 05/23/2022 Insurance Providers Payer Name Payer Address Payer Phone Subscriber Number Group Number Insured Name Patient Relationship to Insured Coverage Start Date Coverage End Date [employer] Medicare Adv-[id number] [address] [address] [place] [address] [phone] [id number] Ruslan Hoang Self - patient is the insured Medical (General) History Medical History History ICD Code Chicken pox Surgical History Surgery Date(Month/Year) hernia 2012
== END 2024-12-25 08:35 | disposition home or self-care (01) ==
PROVIDERS: PCP Internal Medicine; Referring Provider Internal Medicine; Visit Provider Surgery
DX: D36.11 Benign neoplasm of peripheral nerves and autonomic nervous system of face, head, and neck (principal); L98.9 Disorder of the skin and subcutaneous tissue, unspecified
CPT/HCPCS: 99204

== ENCOUNTER → 2024-12-25 08:18 | Outpatient (BNVA) | payer MEDICARE, SELFPAY | PROVIDERS: PCP Internal Medicine; Referring Provider Internal Medicine; Visit Provider Surgery | DX: D36.11 Benign neoplasm of peripheral nerves and autonomic nervous system of face, head, and neck (principal); L98.9 Disorder of the skin and subcutaneous tissue, unspecified | CPT/HCPCS: 99202 ==

== ENCOUNTER 2025-01-08 11:35 | Outpatient (REF) | payer MEDICARE, SELFPAY ==
[2025-01-08 12:32] VITALS: BP 173/87; PULSE 62; RESP 19; O2SAT 97; BMI 21.9
--- NOTE | 2025-01-08 15:37 | P.OP_ITS ---
Operative Note Operative Note Date of Service: 01/08/25 Narrative: Preoperative diagnosis: Bilateral earlobe cysts, right facial skin lesion Postoperative diagnosis: Same Procedure: Excision of bilateral ear cysts and right facial skin lesion Surgeon: Noel Najera MD Fire Department Marine Engineer: None Anesthesia: Lidocaine 1% with epinephrine Indications for procedure: 74-year-old male patient with bilateral ear cysts the largest being on the left side measuring approximately 1.5 cm on the earlobe. The 2nd is in the right side measuring approximately 1 cm in diameter. Skin lesion is located below the right eye measures approximately 0.5 cm. Operative findings: Skin lesions as noted above Specimen: Bilateral ear lobe skin cysts and right facial skin lesion Estimated blood loss: 3 mL Complications: None Procedure details: Patient was brought to the minor surgery suite and placed in a supine position. The site of surgery was confirmed by the patient in bilateral ears and face. After assuring informed consent the skin with of the left ear was prepped with Betadine and draped in a sterile fashion. Local anesthesia was then infiltrated around the cyst. Elliptical incision was then made with a scalpel around the cyst in the cystic completely excised. Findings were felt to be consistent with a sebaceous cyst. This was passed off the table and sent to pathology for further examination. Skin was then closed using interrupted 5 0 nylon sutures. Bacitracin was then applied to the incision. Attention was then directed to the right ear were again the skin was prepped with Betadine and draped in a sterile fashion. Local anesthesia was then infiltrated around the lesion an elliptical incision made with a scalpel to include the entire cyst. This was then completely excised and sent to pathology for further examination. Skin was then closed using interrupted 5 0 nylon sutures. Bacitracin was then applied to the incision. The skin lesion in the right face below the right eye was prepped with Betadine. Local anesthesia was then infiltrated around the lesion. Scalpel was then used to excise the lesion which appeared to be a large skin tag. Pressure was held to maintain hemostasis. Bacitracin was then applied to the wound. The patient tolerated the procedure well. He was discharged to home in stable condition.
== END 2025-01-08 11:36 | disposition home or self-care (01) ==
LOC: HO.MS 11:35
PROVIDERS: Visit Provider Surgery
PROC: (CPT 11440; principal; 2025-01-08 13:00)
DX: D36.11 Benign neoplasm of peripheral nerves and autonomic nervous system of face, head, and neck (principal); L98.8 Other specified disorders of the skin and subcutaneous tissue; L91.8 Other hypertrophic disorders of the skin
CPT/HCPCS: 11440; 11442; 11441; 88304; J2004

== ENCOUNTER → 2025-01-08 11:35 | Outpatient (BNV) | payer MEDICARE, SELFPAY | PROVIDERS: Visit Provider Surgery | DX: L72.0 Epidermal cyst (principal); L91.8 Other hypertrophic disorders of the skin | CPT/HCPCS: 11441; 11442 ==

== ENCOUNTER 2025-01-22 09:40 | Outpatient (AMB) | payer MEDICARE, SELFPAY ==
--- NOTE | 2025-01-22 09:42 | MHC.OFFVIS ---
Vital Signs 01/22/25 09:48 Height 5 ft 9 in Weight 142 lb BMI 21.0 BP 133/83 Blood Pressure Location Lt brachial Position Sitting Pulse 90 Intake Visit Reasons: stitch removal after 01/08 surgery Intake Note: Patient is seen in office for post op assessment post excision of bilateral ear cysts and right facial skin lesion. Pt c/o: healing as expected, denies redness, discharge or other concerns surgery:01/08/25 Software Reliability Engineer Required: No Accompanied by: Self / Same As Patient Allergies penicillin G Allergy (Unknown, Verified 01/22/25 09:48) hives HPI Comments Details: 74-year-old male patient returning for suture removal following excision of bilateral ear cyst on 01/08/2025. Pathology revealed benign epidermal cysts bilaterally. A facial skin lesion on the right face was a benign fibroepithelial polyp (skin tag). He tolerated the procedure well and denies any ongoing symptoms. [facility] Medical History (Updated 01/22/25 @ 09:55 by Noel Najera MD) Smoker BPH (benign prostatic hyperplasia) COPD (chronic obstructive pulmonary disease) Surgical History (Updated 01/20/25 @ 15:46 by LYNDON Lake) Hx of excision of mass (01/08/25) Hx of colonoscopy (~2019) History of hernia surgery Family History Mother Stroke Father Pancreatic cancer Heart disease Sister Breast cancer Social History Household Members: Spouse Housing: House Alcohol intake: current Alcohol intake frequency: 3 or more drinks per day Alcohol type: beer Patient Tobacco Use Status: Current everyday Tobacco user Tobacco use type: Cigarette Cigarette Packs Per Day: 0.5 Cigarettes Per Day: 15 e-Cigarette/Vaping Use: Never Used Second Hand Smoke Exposure: Yes service: No Current occupational status: employed Current occupation: [employer] Cognitive needs: No Hearing needs: Yes (hearing aide) Vision needs: Yes (reading glasses) Physical Exam HEENT Other: Bilateral ear incisions are clean, dry, and intact. Sutures removed and wounds found to be well healed. Facial incision is clean and intact. Assessment & Plan Assessment & Plan (1) Epidermal inclusion cyst: Code(s): L72.0 - Epidermal cyst Category: Medical Plan Patient returns following excision of bilateral ear epidermal inclusion cyst. He tolerated the procedure well the wounds are healing nicely. Facial skin tag wound is clean and intact as well. Should follow up as needed. Coding Level of Care Code Global (77094) Diagnoses Epidermal inclusion cyst L72.0
[2025-01-22 09:48] VITALS: BP 133/83; PULSE 90; BMI 21.0
--- OUTSIDE RECORDS SUMMARY | 2025-01-22 10:44 | XMS_ITS | Patient Health Record ---
Author Organization [facility] Address [address] [place] [address] Care Team Providers Care Cloth Examiner Name Role Phone Evin JASON, Radha Primary Care Provider Unavail able Natanael Evans Unavailable [phone] Allergies Allergen (clinical drug ingredient) Drug/Non Drug [...] Problem Status W/U Status Risk Notes Problem [id number] Hammer toe of left foot (M20.42) Active confirmed Plan Of Treatment Pending Test Test Name Order Date X ray : Foot, left 3V 05/23/2022 Insurance Providers Payer Name Payer Address Payer Phone Subscriber Number Group Number Insured Name Patient Relationship to Insured Coverage Start Date Coverage End Date [employer] Medicare [id number] [address] [address] [place] [address] [id number] Ruslan Hoang Self - patient is the insured Medical (General) History Medical History History ICD Code Chicken pox Surgical History Surgery Date(Month/Year) hernia 2012
== END 2025-01-22 09:57 | disposition home or self-care (01) ==
LOC: HO.HGS 09:41
PROVIDERS: Visit Provider Surgery
DX: L72.0 Epidermal cyst (principal)
CPT/HCPCS: 99024

== ENCOUNTER → 2025-01-22 09:40 | Outpatient (BNVA) | payer MEDICARE, SELFPAY | PROVIDERS: Visit Provider Surgery | DX: Z48.817 Encounter for surgical aftercare following surgery on the skin and subcutaneous tissue (principal); Z98.890 Other specified postprocedural states | CPT/HCPCS: 99212 ==

== ENCOUNTER 2025-02-19 07:32 | Outpatient (REF) | payer MEDICARE, SELFPAY ==
--- OUTSIDE RECORDS SUMMARY | 2025-02-19 07:34 | XMS_ITS | Patient Health Record ---
Author Organization [facility] Address [address] [place] [address] Care Team Providers Care Client Support Analyst Name Role Phone Evin JASON, Radha Primary Care Provider Unavail able Natanael Evans Unavailable [phone] Allergies Allergen (clinical drug ingredient) Drug/Non Drug [...] Problem Status W/U Status Risk Notes Problem [id number] Hammer toe of left foot (M20.42) Active confirmed Plan Of Treatment Pending Test Test Name Order Date X ray : Foot, left 3V 05/23/2022 Insurance Providers Payer Name Payer Address Payer Phone Subscriber Number Group Number Insured Name Patient Relationship to Insured Coverage Start Date Coverage End Date [employer] Medicare Adv-[id number] [address] [address] [place] [address] [id number] Ruslan Hoang Self - patient is the insured Medical (General) History Medical History History ICD Code Chicken pox Surgical History Surgery Date(Month/Year) hernia 2012
[2025-02-24 22:19] LABS: Calprotectin, Fecal 13 mcg/g
== END 2025-02-19 07:33 | disposition home or self-care (01) ==
LOC: HO.LNP 07:32
PROVIDERS: Visit Provider Internal Medicine
DX: K52.9 Noninfective gastroenteritis and colitis, unspecified (principal)
CPT/HCPCS: 83993

== ENCOUNTER 2025-02-26 08:50 | Outpatient (REF) | payer MEDICARE, SELFPAY ==
[2025-02-26 10:36] LABS: Hematocrit 43.8 % (42.0-52.0); Hemoglobin 14.8 g/dl (14.0-18.0); Mean Corpuscular HGB Conc 33.8 g/dl (31.0-36.0); Mean Corpuscular Hemoglobin 32.5 pg (27.0-33.0); Mean Corpuscular Volume 96.3 fL (80.0-98.0); Mean Platelet Volume 9.6 fL (9.4-12.4); Platelet Count 226 X10*3/uL (160-400); Red Blood Count 4.55 X10*6/uL (4.60-5.80); Red Cell Distribution Width 11.9 % (11.0-16.0); White Blood Count 5.2 X10*3/uL (4.8-10.8)
[2025-02-26 11:14] LABS: Alanine Aminotransferase 16 U/L (0-40); Alkaline Phosphatase 62 U/L (39-117); Anion Gap 8 (12-20); Aspartate Amino Transferase 18 U/L (5-37); Bilirubin Total 0.4 mg/dL (0.0-1.0); Blood Urea Nitrogen 21 mg/dL (9-16); C Reactive Protein 0.13 mg/dL (< or = 0.50); Calcium 9.2 mg/dL (8.4-10.2); Carbon Dioxide 28 mmol/L (22-29); Chloride 104 mmol/L (96-108); Estimated Glomerular Filt Rate > 60; Glucose Random 81 mg/dL (60-115); Potassium 4.4 mmol/L (3.3-5.1); Sodium 136 mmol/L (135-145); Total Protein 6.3 g/dL (6.5-8.0)
== END 2025-02-26 08:51 | disposition home or self-care (01) ==
LOC: HO.LAB 08:50
PROVIDERS: PCP Internal Medicine; Visit Provider Internal Medicine
DX: K51.90 Ulcerative colitis, unspecified, without complications (principal)
CPT/HCPCS: 36415; 80053; 85027; 86140; 99212

== ENCOUNTER 2025-02-26 08:50 | Outpatient (AMB) | payer MEDICARE, SELFPAY ==
[2025-02-26 08:55] VITALS: BP 138/111; BMI 20.5
--- NOTE | 2025-02-26 08:55 | MHC.OFFVIS ---
Vital Signs 02/26/25 08:55 Height 5 ft 9 in Weight 138 lb 14.259 oz BMI 20.5 BP 138/111 H Blood Pressure Location Lt brachial Position Sitting Intake Visit Reasons: f/u stool and labs Intake Note: Ruslan presents in the office as a follow up for his blood work and stool tests. CC: He states that he has been doing good. He wants to know if you can sign his handicap paper. 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 Reports almost 2 months of mushy stools 7/day including night time sx, assoc with blood in stool, with RLQ pain. Discomfort is there all the time. Has lost appetite. thinks visually seems to have lost weight. Was seen by PCP who ordered CT abd/pel that shows segmental areas of colon wall thickness. Of note - pt was seen in office in 2020 as well for similar sx but was lost to follow up at that time. Attempt was made by pcp office to book for colo which the pt declined (see workloads 2021) Smokes 0.5PPD x 55 years. EtOH use 2-3 beers a day. Father: pancreatic ca at age 80 Mother: gastric ulcers 11/24/24: EGD/colo 1. Normal esophagus (biopsy) 2. Gastritis (biopsy) 3. Duodenitis (biopsy) 4. Proctocolitis (biopsy) 5. Internal and external hemorrhoids Path: A. Duodenum, biopsy: Duodenal mucosa with predominantly preserved villi and focal features of chronic/non-specific duodenitis. B. Duodenal polyp: Polypoid duodenal mucosa with features of chronic/non-specific duodenitis; no adenomatous dysplasia seen. C. Stomach, random, biopsy: Gastric antral and body mucosa with focal minimal chronic inactive inflammation; negative for H. pylori, intestinal metaplasia and dysplasia. D. Terminal ileum, biopsy: Ileal mucosa with no specific change. E. Colon, cecum, biopsy: Colonic mucosa with no specific change. F. Colon, ascending, biopsy: Colonic mucosa with no specific change. G. Colon, transverse, biopsy: Moderate active colitis with mild chronic features; no granulomas or dysplasia. H. Colon, descending, biopsy: Moderate active colitis with mild chronic features; no granulomas or dysplasia. I. Colon, sigmoid, biopsy: Moderate active colitis with mild chronic features; no granulomas or dysplasia. G. Colon, rectum, biopsy: Moderate active colitis with mild chronic features; no granulomas or dysplasia. Comment: Basal lymphoplasmacytic infiltrates and chronic regenerative crypt changes are mild. This likely represents early chronic inflammatory bowel disease, but infection is not excluded and clinical correlation is necessary. 12/16/24: Here for follow up. Pt was reminded of results relayed by RN on 12/01. Keiry galeano has a high copay ($500!). Checked with [facility] outpatient pharmacy as well. Pt reports improvement in sx however his sx not correlating with colo and fecal calpro results. 02/26/25: Here for follow up. Has had tremendous improvement since taking prednisone and completed the taper 3 weeks ago. No abd pain, has 1-2 formed BMs per day. No blood in stool. Labs reviewed. Fecal calpro improved from 1030--> 13! Pt reports he never took mesalamine since he felt better. Budesonide was not covered. Still smoking unfortunately. [facility] Medical History (Updated 02/26/25 @ 09:35 by Zora Wills MD) Smoker BPH (benign prostatic hyperplasia) COPD (chronic obstructive pulmonary disease) Surgical History (Updated 02/02/25 @ 08:40 by Taylor Phillips) Hx of excision of mass (01/08/25) Hx of colonoscopy (~11/24/24) History of hernia surgery Family History Mother Stroke Father Pancreatic cancer Heart disease Sister Breast cancer Social History Household Members: Spouse Housing: House Alcohol intake: current Alcohol intake frequency: 3 or more drinks per day Alcohol type: beer Patient Tobacco Use Status: Current everyday Tobacco user Tobacco use type: Cigarette Cigarette Packs Per Day: 0.5 Cigarettes Per Day: 15 e-Cigarette/Vaping Use: Never Used Second Hand Smoke Exposure: Yes service: No Current occupational status: employed Current occupation: [employer] Cognitive needs: No Hearing needs: Yes (hearing aide) Vision needs: Yes (reading glasses) Review of Systems Const All systems reviewed & are unremarkable except as noted in HPI and below Physical Exam Vital Signs: Last Vital Signs BP 138/111 H 02/26/25 08:55 BMI result Body Mass Index 20.5 No apparent distress Nonicteric, hard of hearing Abdomen soft, nondistended Alert and oriented x3, normal gait Assessment & Plan Assessment & Plan (1) Ulcerative colitis: Code(s): K51.90 - Ulcerative colitis, unspecified, without complications Category: Medical Plan In remission since PO prednisone. Reviewed that would recommend mesalamine for maintenance to avoid flare ups. Only needs to take PO and not rectal therapy which he is agreeable to. Plan: - mesalamine 3.6g/day - cbc cmp today - follow up in 3 months before pt leaves for [place] Orders: Orders Comprehensive Met. Panel Today K52.9 - Noninfective gastroenteritis and colitis, unspecified Complete Blood Count no Diff Today K52.9 - Noninfective gastroenteritis and colitis, unspecified Medications: New mesalamine 3.6 grams (3 x 1.2 gram) PO DAILY 90 days 270 tabs 1RF Coding Level of Care Code Est Pt Level 4 (88877) Diagnoses Ulcerative colitis K51.90
--- OUTSIDE RECORDS SUMMARY | 2025-02-26 09:04 | XMS_ITS | Patient Health Record ---
Author Organization [facility] Address [address] [place] [address] Care Team Providers Care Division Officer Weapons Department Name Role Phone Evin JASON, Radha Primary Care Provider Unavail able Natanael Evans Unavailable [phone] Allergies Allergen (clinical drug ingredient) Drug/Non Drug [...] Problem Status W/U Status Risk Notes Problem [id number] Hammer toe of left foot (M20.42) Active confirmed Plan Of Treatment Pending Test Test Name Order Date X ray : Foot, left 3V 05/23/2022 Insurance Providers Payer Name Payer Address Payer Phone Subscriber Number Group Number Insured Name Patient Relationship to Insured Coverage Start Date Coverage End Date [employer] Medicare Adv-[id number] [address] [address] [place] [address] [phone] [id number] Ruslan Hoang Self - patient is the insured Medical (General) History Medical History History ICD Code Chicken pox Surgical History Surgery Date(Month/Year) hernia 2012
== END 2025-02-26 09:33 | disposition home or self-care (01) ==
LOC: HO.HGI 08:51
PROVIDERS: PCP Internal Medicine; Visit Provider Internal Medicine
DX: K51.90 Ulcerative colitis, unspecified, without complications (principal)
CPT/HCPCS: 99214

== ENCOUNTER 2025-04-13 15:19 | Outpatient (AMB) | payer MEDICARE, SELFPAY ==
[2025-04-13 15:23] VITALS: BP 126/84; PULSE 92; O2SAT 95; BMI 20.2
--- NOTE | 2025-04-13 15:23 | A.OFFPC_ITS ---
Vital Signs 04/13/25 15:23 Height 5 ft 9 in Weight 136 lb 8 oz BMI 20.2 BP 126/84 Blood Pressure Location Lt brachial Position Sitting Pulse 92 Pulse Source Pulse Oximeter Pulse Oximetry (%) 95 Oxygen Delivery Method Room Air Intake Visit Reasons: Dizziness Mammal Control Agent Required: No Accompanied by: Self / Same As Patient Allergies penicillin G Allergy (Unknown, Verified 04/13/25 15:23) hives Medication List - Last Reconciled 04/13/25 by Rosario Oliveira MD mesalamine 3.6 grams (3 x 1.2 gram) PO DAILY 90 days Tobacco use date assessed: 04/13/25 Fall risk assessment: No Falls in past year Last assessed Fall Risk: 04/13/25 Dental Screening Dental Screen Date: 04/13/25 Did you have a dental visit in the last 12 months?: No Did you have a dental problem in the last 6 months where you did not have access to dental care?: No Was dental information given to patient?: No HPI Dizziness HPI Details 3 days lightheaded, no n no v, , 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, PFSH Medical History (Updated 04/13/25 @ 15:46 by Rosario Oliveira MD) Smoker BPH (benign prostatic hyperplasia) COPD (chronic obstructive pulmonary disease) Surgical History Hx of excision of mass (01/08/25) Hx of colonoscopy (~11/24/24) History of hernia surgery Family History Mother Stroke Father Pancreatic cancer Heart disease Sister Breast cancer Social History (Updated 04/13/25 @ 15:37 by Rosario Oliveira MD) Household Members: Spouse Housing: House Alcohol intake: current Alcohol intake frequency: 3 or more drinks per day Alcohol type: beer Comment: QD 2-3 beers a day Patient Tobacco Use Status: Current everyday Tobacco user Tobacco use type: Cigarette Cigarette Packs Per Day: 0.5 Cigarettes Per Day: 15 Years Smoked: 5-6 a day e-Cigarette/Vaping Use: Never Used Second Hand Smoke Exposure: Yes service: No Current occupational status: employed 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 1. Little interest or pleasure in doing things: more than half the days 2. Feeling down, depressed, or hopeless: not at all 3. Trouble falling or staying asleep, or sleeping too much: several days 4. Feeling tired or having little energy: more than half the days 5. Poor appetite or overeating: more than half the days 6. Feeling bad about yourself - or that you are a failure or have let yourself or your family down: not at all 7. Trouble concentrating on things, such as reading the newspaper or watching television: not at all 8. Moving or speaking so slowly that other people could have noticed. Or the opposite - being so fidgety or restless that you have been moving around a lot more than usual: not at all 9. Thoughts that you would be better off or of hurting yourself in some w ay: not at all Total score: 7 Source: Developed by Drs. Tim Sol, Krystyna Castillo, Vidal Lagos and colleagues, with an educational praveen from [employer]. Thrive Questionnaire Date Thrive assessed: 04/13/25 I am a: Patient What is your living situation today?: I have a steady place to live Within the past 12 months, did the food you bought not last and you didn't have the money to get more?: I choose not to answer this question Within the past 12 months, did you worry whether your food would run out before you got money to buy more?: Never true Do you have trouble paying for medicines?: No Do you have trouble getting transportation to medical appointments?: Yes Do you have trouble paying your heating and electricity bill?: No Do you have trouble taking care of your child, family member or friend?: No Do you have trouble with day-to-day activities such as bathing, preparing meals, shopping, managing finances, etc.?: No Are you currently unemployed and looking for a job?: No Are you interested in more education?: No Please select the resources that you would like help with: None Currently or been in a relationship where the following occur: No concerns reported THRIVE Score: 1 AUDIT C Alcohol Use Questionnaire (AUDIT-C) 1. How often do you have a drink containing alcohol?: Monthly or less 2. How many drinks containing alcohol do you have on a typical day when you are drinking?: 1 or 2 3. How often do you have six or more drinks on one occasion?: Never Total Score: 1 REJI-7 AMB Questionnaire REJI-7 Date REJI - 7 assessed: 04/13/25 Feeling nervous, anxious, or on edge: 0 = Not at all Not being able to stop or control worryin = Not at all Worrying too much about different things: 0 = Not at all Trouble relaxin = Not at all Being so restless that it is hard to sit still: 0 = Not at all Becoming easily annoyed or irritable: 0 = Not at all Feeling afraid as if something awful might happen: 0 = Not at all Total REJI-7 score (0-4 normal; 5-9 mild; 10-14 moderate; 15-21 severe): 0 Source: Developed by Drs. Tim Sol, Krystyna Castillo, Vidal Lagos and colleagues, with an educational praveen from [employer]. Physical exam (Primary Care) Vital Signs: Last Vital Signs Pulse 92 04/13/25 15:23 BP 126/84 04/13/25 15:23 Pulse Ox 95 04/13/25 15:23 Oxygen Delivery Method Room Air 04/13/25 15:23 BMI result Body Mass Index 20.2 Tobacco/Smoking Status: Tobacco use Status Tobacco use date assessed 04/13/25 04/13/25 15:28 Patient Tobacco Use Status Current everyday Tobacco 04/13/25 15:28 Tobacco use type Cigarette 04/13/25 15:28 e-Cigarette/Vaping Use Never Used 04/13/25 15:28 PHQ-9: PHQ-9 Score PHQ-9: Total score 7 04/13/25 15:28 Thrive Assessment: Date of Thrive Assessment Date Thrive assessed 04/13/25 04/13/25 15:28 Currently or been in a relationship where the following occur: No concerns reported Const General: alert; No acute distress Eyes Conjunctivae: conjunctivae normal Resp Auscultation: clear to auscultation bilaterally Cardio Rate: regular rate Rhythm: regular rhythm GI Inspection: Yes normal to inspection Extrem General: Yes normal to inspection and No edema Coding Level of Care Code Est Pt Level 4 (76988) Complex EM visit Add On G2211 Diagnoses Ulcerative colitis K51.90 COPD (chronic obstructive pulmonary disease) J44.9 Tobacco abuse Z72.0 Dizziness R42 Assessment & Plan Assessment & Plan (1) Ulcerative colitis: Code(s): K51.90 - Ulcerative colitis, unspecified, without complications Category: Medical Plan: Patient follows up with Gastroenterology (2) COPD (chronic obstructive pulmonary disease): Code(s): J44.9 - Chronic obstructive pulmonary disease, unspecified Category: Medical (3) Tobacco abuse: Code(s): Z72.0 - Tobacco use Category: Medical (4) Dizziness: Code(s): R42 - Dizziness and giddiness Category: Medical Plan History of Present Illness The patient is a 74-year-old male presenting with dizziness and blood in stool. He has a history of benign prostatic hyperplasia, causing nocturia, and ulcerative colitis managed with mesalamine. The patient smokes 5-6 cigarettes daily and drinks 2-3 beers daily, with a history of tobacco use disorder and chronic obstructive pulmonary disease. He reports dizziness for three days, improving, with no nausea, vomiting, or fever, and experiences right lower quadrant pain with blood in stool. 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 Health Maintenance - Lung cancer screening program discussed due to smoking history Social History - Tobacco use: Smokes 5-6 cigarettes daily, reduced from previous higher usage - Alcohol use: Consumes 2-3 beers daily Review of Systems - General: Reports dizziness for 3 days, improving - Gastrointestinal: Reports blood in stool, denies diarrhea - Respiratory: Denies cough, reports COPD without worsening symptoms - Neurological: Denies nausea, vomiting, or fever - Genitourinary: Reports nocturia, waking twice at night to urinate Physical Exam - General: No acute distress observed - HEENT: Ears examined, no blockage noted - Respiratory: Lungs clear to auscultation bilaterally - Cardiovascular: Regular rate and rhythm, no murmurs - Neurological: No focal deficits observed Results - Labs: Normal blood count, electrolytes, renal function, blood sugar, liver function (February 2025) - Imaging: EGD in November 2024 showed normal esophagus, gastritis, duodenitis, proctocolitis, internal and external hemorrhoids - Imaging: Abdominal CT scan in October 2024, no significant findings Plan The patient will have a chest X-ray and follow-up blood work to explore the cause of dizziness and rule out any underlying conditions. An EKG is planned to evaluate cardiac health, and the patient should stay hydrated to help alleviate dizziness. A referral to a lung cancer screening program is made due to the patient's smoking history, and smoking cessation is recommended. The patient should watch for any new symptoms and report them as needed. Patient was informed and verbally consented to the use of an ambient scribe for clinic note documentation during this visit. Discussion Notes I discussed with the patient the importance of undergoing a chest X-ray and follow-up blood work to identify any underlying causes of dizziness. We talked about the lung cancer screening program due to his smoking history and the benefits of early detection. I encouraged him to consider smoking cessation and to stay hydrated to prevent dizziness. Patient Instructions - Undergo chest X-ray and blood work as scheduled. - Stay hydrated by drinking 6-8 glasses of water daily. - Monitor for any new symptoms and report them promptly. - Consider participating in the lung cancer screening program. - Think about quitting smoking to improve overall health. Orders: Orders XR chest 2V Today R42 - Dizziness and giddiness Complete Blood Count Auto Diff Today R42 - Dizziness and giddiness Thyroid Stimulating Hormone Today R42 - Dizziness and giddiness Free T4 (Free Thyroxine) Today R42 - Dizziness and giddiness UA CC w/rflx Micro + Cult Today R30.0 - Dysuria, R42 - Dizziness and giddiness Comprehensive Met. Panel Today R42 - Dizziness and giddiness Magnesium Today R42 - Dizziness and giddiness ECG 12 lead EKG Today R42 - Dizziness and giddiness Referrals Lung Cancer Screening Referral Z72.0 - Tobacco use
--- OUTSIDE RECORDS SUMMARY | 2025-04-13 18:31 | XMS_ITS | Patient Health Record ---
Author Organization [facility] Address [address] [place] [address] Care Team Providers Care Sales Teacher Name Role Phone Evin JASON, Radha Primary Care Provider Unavail able Natanael Evans Unavailable [phone] Allergies Allergen (clinical drug ingredient) Drug/Non Drug [...] Problem Status W/U Status Risk Notes Problem [id number] Hammer toe of left foot (M20.42) Active confirmed Plan Of Treatment Pending Test Test Name Order Date X ray : Foot, left 3V 05/23/2022 Insurance Providers Payer Name Payer Address Payer Phone Subscriber Number Group Number Insured Name Patient Relationship to Insured Coverage Start Date Coverage End Date United [employer] Medicare Adv-[id number] [address] [address] [place] [address] [id number] Ruslan Hoang Self - patient is the insured Medical (General) History Medical History History ICD Code Chicken pox Surgical History Surgery Date(Month/Year) hernia 2012
== END 2025-04-13 16:40 | disposition home or self-care (01) ==
LOC: HO.HMCH 15:19
PROVIDERS: PCP Internal Medicine; Visit Provider Internal Medicine
DX: K51.90 Ulcerative colitis, unspecified, without complications (principal); J44.9 Chronic obstructive pulmonary disease, unspecified; Z72.0 Tobacco use; R42 Dizziness and giddiness

== ENCOUNTER → 2025-04-13 15:19 | Outpatient (BNVA) | payer MEDICARE, SELFPAY | PROVIDERS: PCP Internal Medicine; Visit Provider Internal Medicine | DX: K51.90 Ulcerative colitis, unspecified, without complications (principal); J44.9 Chronic obstructive pulmonary disease, unspecified; R42 Dizziness and giddiness; F17.200 Nicotine dependence, unspecified, uncomplicated; Z71.6 Tobacco abuse counseling | CPT/HCPCS: 99212 ==

== ENCOUNTER 2025-04-16 07:42 | Outpatient (REF) | payer MEDICARE, SELFPAY ==
--- NOTE | ~2025-04-16 | XR_ITS ---
EXAMINATION: XR CHEST CLINICAL INFORMATION: R42 - Dizziness and giddiness COMPARISON: August 10, 2019. TECHNIQUE: 2 views of the chest were obtained. FINDINGS: Pulmonary reticular pattern. Hyperinflated lungs. Bilateral apical lung scarring. No gross consolidation pleural effusion or pneumothorax. Cardiomediastinal silhouette size is small. Multilevel thoracolumbar spondylosis. S-shaped curvature of the thoracic spine. XR/XR chest 2V IMPRESSION: COPD emphysematous type changes. Superimposed acute inflammatory or infectious processes cannot be excluded. Electronically signed by: Behzad Uribe MD 04/16/2025 08:41 AM EDT
[2025-04-16 07:51] LABS: MANUAL DIFF FLAG NO
--- NOTE | 2025-04-16 07:57 | ECG_ITS ---
Test Reason : DIZZINESS & GIDDINESS Blood Pressure : */* mmHG Vent. Rate : 51 BPM Atrial Rate : 51 BPM P-R Int : 180 ms QRS Dur : 68 ms QT Int : 442 ms P-R-T Axes : 54 44 56 degrees QTcB Int : 407 ms Sinus bradycardia with Premature atrial complexes Otherwise normal ECG No previous ECGs available Referred By: Rosario Oliveira Electronically Signed By: PAULA LONG
[2025-04-16 08:04] LABS: Basophils Absolute Auto 0.1 X10*3/uL (0.0-0.2); Basophils Percent Auto 1.7 % (0-2); Eosinophils Absolute Auto 0.2 X10*3/uL (0.0-0.4); Hematocrit 45.4 % (42.0-52.0); Hemoglobin 15.3 g/dl (14.0-18.0); Imm Gran Abs Auto 0.02 X10*3/uL (0.00-0.03); Imm Gran Pct Auto 0.4 % (0.0-0.4); Lymphocytes Absolute Auto 1.4 X10*3/uL (1.2-4.9); Lymphocytes Percent Auto 29.8 % (20-40); Mean Corpuscular HGB Conc 33.7 g/dl (31.0-36.0); Mean Corpuscular Hemoglobin 32.1 pg (27.0-33.0); Mean Corpuscular Volume 95.4 fL (80.0-98.0); Mean Platelet Volume 9.4 fL (9.4-12.4); Monocytes Absolute Auto 0.5 X10*3/uL (0.1-1.2); Monocytes Percent Auto 11.4 % (2-11); Neutrophils Absolute Auto 2.4 x10*3/uL (2.0-8.3); Neutrophils Percent Auto 51.7 % (45-73); Platelet Count 210 X10*3/uL (160-400); Red Blood Count 4.76 X10*6/uL (4.60-5.80); White Blood Count 4.6 X10*3/uL (4.8-10.8)
[2025-04-16 08:12] LABS: Appearance Urine Clear; Color Urine Yellow; Glucose Urine UA Negative (Negative); Leukocyte Esterase Urine Negative (Negative); Nitrite Urine Negative (Negative); Specific Gravity - Urine 1.025 (1.005-1.025); Urine Blood Negative (Negative); Urine Ketones Negative (Negative); Urine Protein Negative (Neg-Trace)
[2025-04-16 08:36] LABS: Alanine Aminotransferase 15 U/L (0-40); Albumin Level 4.3 g/dL (3.5-5.0); Alkaline Phosphatase 63 U/L (39-117); Anion Gap 12 (12-20); Aspartate Amino Transferase 18 U/L (5-37); Bilirubin Total 0.5 mg/dL (0.0-1.0); Blood Urea Nitrogen 25 mg/dL (9-16); Calcium 8.9 mg/dL (8.4-10.2); Carbon Dioxide 25 mmol/L (22-29); Chloride 105 mmol/L (96-108); Estimated Glomerular Filt Rate > 60; Glucose Random 105 mg/dL (60-115); Magnesium 1.9 mg/dL (1.6-2.6); Potassium 4.3 mmol/L (3.3-5.1); Sodium 138 mmol/L (135-145); Total Protein 6.5 g/dL (6.5-8.0)
[2025-04-16 09:00] LABS: Free T4 (Free Thyroxine) 0.94 ng/dL (0.71-1.85); Thyroid Stimulating Hormone 1.12 uIU/mL (0.32-4.0)
== END 2025-04-16 07:43 | disposition home or self-care (01) ==
LOC: HO.XRAY 07:42
PROVIDERS: PCP Internal Medicine; Visit Provider Internal Medicine
DX: R42 Dizziness and giddiness (principal); R30.0 Dysuria
CPT/HCPCS: 36415; 71046; 80053; 81003; 83735; 84439; 84443; 85025; 93005

== ENCOUNTER → 2025-04-16 07:57 | Outpatient (BNV) | payer MEDICARE, SELFPAY | PROVIDERS: PCP Internal Medicine; Visit Provider Internal Medicine | DX: I49.1 Atrial premature depolarization (principal); R00.1 Bradycardia, unspecified | CPT/HCPCS: 93010 ==

== ENCOUNTER → 2025-04-16 08:23 | Outpatient (BNV) | payer MEDICARE, SELFPAY | PROVIDERS: PCP Internal Medicine; Visit Provider Radiology Diagnostic Radiology | DX: J43.9 Emphysema, unspecified (principal) | CPT/HCPCS: 71046 ==

== ENCOUNTER 2025-07-15 14:21 | Outpatient (AMB) | payer MEDICARE, SELFPAY ==
--- NOTE | 2025-07-15 14:44 | MHC.PC.OV ---
Vital Signs 07/15/25 14:50 Height 5 ft 9 in Weight 137 lb 8 oz BMI 20.3 BP 130/62 Blood Pressure Location Lt brachial Position Sitting Pulse 78 Pulse Source Pulse Oximeter Temp 96.9 F Temp Source Temporal Artery Scan Pulse Oximetry (%) 96 Oxygen Delivery Method Room Air Intake Visit Reasons: annual exam - see comments Intake Note: Patient is here today for a physical. 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: No Test Development Engineer: Not Required per policy Accompanied by: Self / Same As Patient Allergies penicillin G Allergy (Unknown, Verified 08/10/25 06:12) hives Medication List - Last Reconciled 08/10/25 by Nikolai Nicolas MD No Known Home Meds Tobacco use date assessed: 07/15/25 Fall risk assessment: No Falls in past year Last assessed Fall Risk: 07/15/25 Dental Screening Dental Screen Date: 04/13/25 HPI HPI Comments History of Present Illness Details Presents for an annual physical [facility] Medical History Nicotine dependence, cigarettes, uncomplicated BPH (benign prostatic hyperplasia) COPD (chronic obstructive pulmonary disease) Surgical History History of ear surgery History of excision of epidermal inclusion cyst History of colonoscopy History of esophagogastroduodenoscopy (EGD) History of hernia surgery Family History Mother Stroke Father Pancreatic cancer Heart disease Sister Breast cancer Social History Household Members: Spouse Housing: House Alcohol intake: current Alcohol intake frequency: 3 or more drinks per day Alcohol type: beer Comment: QD 2-3 beers a day Patient Tobacco Use Status: Current everyday Tobacco user Tobacco use type: Cigarette Cigarette Packs Per Day: 0.25 Cigarettes Per Day: 3 Years Smoked: 5-6 a day e-Cigarette/Vaping Use: Never Used Second Hand Smoke Exposure: Yes service: No Current occupational status: employed 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 [employer] Cognitive needs: No Hearing needs: Yes (hearing aide) Vision needs: Yes (reading glasses) Questionnaire Thrive Questionnaire Date Thrive assessed: 04/13/25 I am a: Patient What is your living situation today?: I have a steady place to live Within the past 12 months, did the food you bought not last and you didn't have the money to get more?: I choose not to answer this question Within the past 12 months, did you worry whether your food would run out before you got money to buy more?: Never true Do you have trouble paying for medicines?: No Do you have trouble getting transportation to medical appointments?: Yes Do you have trouble paying your heating and electricity bill?: No Do you have trouble taking care of your child, family member or friend?: No Do you have trouble with day-to-day activities such as bathing, preparing meals, shopping, managing finances, etc.?: No Are you currently unemployed and looking for a job?: No Are you interested in more education?: No Please select the resources that you would like help with: None Currently or been in a relationship where the following occur: I choose not to answer THRIVE Score: 1 AUDIT C Alcohol Use Questionnaire (AUDIT-C) 1. How often do you have a drink containing alcohol?: 4 or more times a week Total Score: 4 REJI-7 AMB Questionnaire REJI-7 Date REJI - 7 assessed: 04/13/25 Feeling nervous, anxious, or on edge: 0 = Not at all Not being able to stop or control worryin = Not at all Worrying too much about different things: 0 = Not at all Trouble relaxin = Not at all Being so restless that it is hard to sit still: 0 = Not at all Becoming easily annoyed or irritable: 0 = Not at all Feeling afraid as if something awful might happen: 0 = Not at all Total REJI-7 score (0-4 normal; 5-9 mild; 10-14 moderate; 15-21 severe): 0 Source: Developed by Drs. Tim Sol, Krystyna Castillo, Vidal Lagos and colleagues, with an educational praveen from [employer]. Physical exam (Primary Care) Vital Signs: Last Vital Signs Temp 96.9 F 07/15/25 14:50 Pulse 78 07/15/25 14:50 BP 130/62 07/15/25 14:50 Pulse Ox 96 07/15/25 14:50 Oxygen Delivery Method Room Air 07/15/25 14:50 BMI result Body Mass Index 20.3 Tobacco/Smoking Status: Tobacco use Status Tobacco use date assessed 07/15/25 07/15/25 14:50 Patient Tobacco Use Status Current everyday Tobacco 07/15/25 15:06 Tobacco use type Cigarette 07/15/25 15:06 e-Cigarette/Vaping Use Never Used 07/15/25 15:06 Thrive Assessment: Date of Thrive Assessment Date Thrive assessed 04/13/25 07/15/25 14:45 Currently or been in a relationship where the following occur: I choose not to answer Coding Level of Care Code Est Pt Prev Care >65y(02863) Diagnoses Annual physical exam Z00.00 Assessment & Plan Assessment & Plan (1) Annual physical exam: Code(s): Z00.00 - Encounter for general adult medical examination without abnormal findings Plan: History of Present Illness - The patient is a 75-year-old male presenting with concerns regarding prostate enlargement. - Reports a swollen prostate but denies any major issues or the need for blood work related to the prostate. 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 - Has a history of living in [place] and plans to spend five months in [place], indicating a seasonal relocation pattern. 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 - Housing: Plans to spend five months in [place], indicating a seasonal relocation pattern. Review of Systems - Genitourinary: Reports prostate enlargement. Denies any major issues or need for blood work related to the prostate. Physical Exam General: Cooperative and healthy appearing Nutritional Appearance: Well nourished Orientation/consciousness: Patient oriented x3 Limitations: No limitations Head: Normal to inspection General: Appearance normal, both eyes and all related structures Neck: Normal visual inspection Chest: Normal palpation of entire chest wall Respiratory: Pulmonary appointment scheduled for chest X-ray in July. ormal respiratory effort Neurology: Patient oriented x3 Results Plan - Plan to conduct blood work during the next appointment in July, coinciding with a scheduled chest X-ray. Discussion Notes During the visit, we discussed the patient's prostate enlargement and the decision to defer blood work until the next appointment in July, when a chest X-ray is also scheduled. The patient expressed no further questions and was satisfied with the plan. Patient Instructions - Follow up in July for blood work and chest X-ray.
[2025-07-15 14:50] VITALS: BP 130/62; PULSE 78; TEMP 36.1; O2SAT 96; BMI 20.3
--- OUTSIDE RECORDS SUMMARY | 2025-07-15 18:45 | XMS_ITS | Patient Health Record ---
[facility] Address [address] [place] [address] Care Team Providers Care Hog Sawyer Name Role Phone Evin JASON, Radha Primary Care Provider Unavail able Natanael Evans Unavailable [phone] Allergies Allergen (clinical drug ingredient) Drug/Non Drug [...] Problem Status W/U Status Risk Notes Problem Acquired hammer toe of left foot ([id number] 103) Hammer toe of left foot (M20.42) Active confirmed Plan Of Treatment Pending Test Test Name Order Date X ray : Foot, left 3V 05/23/2022 Insurance Providers Payer Name Payer Address Payer Phone Subscriber Number Group Number Insured Name Patient Relationship to Insured Coverage Start Date Coverage End Date [employer] Medicare Adv-[id number] [address] [address] [place] [address] [id number] Ruslan Hoang Self - patient is the insured Medical (General) History Medical History History ICD Code Chicken pox Surgical History Surgery Date(Month/Year) hernia 2012
== END 2025-07-15 15:46 | disposition home or self-care (01) ==
LOC: HO.HMCH 14:22
PROVIDERS: Visit Provider Internal Medicine
DX: Z00.00 Encounter for general adult medical examination without abnormal findings (principal)

== ENCOUNTER → 2025-07-15 14:21 | Outpatient (BNVA) | payer MEDICARE, SELFPAY | PROVIDERS: Visit Provider Internal Medicine | DX: Z00.00 Encounter for general adult medical examination without abnormal findings (principal); J44.9 Chronic obstructive pulmonary disease, unspecified; F17.200 Nicotine dependence, unspecified, uncomplicated; Z71.6 Tobacco abuse counseling | CPT/HCPCS: 99397 ==

== ENCOUNTER 2025-08-06 10:39 | Outpatient (AMB) | payer MEDICARE, SELFPAY ==
--- NOTE | 2025-08-06 08:07 | A.OFFVIS_ITS ---
Intake Visit Reasons: Current Smoker Allergies penicillin G Allergy (Unknown, Verified 07/15/25 14:49) hives HPI HPI Current Smoker: Details: Initial visit for this 75yo smoker with a 25PYH. Patient started smoking at age 25 for 50 years at 1/2ppd. . Denies marijuana use. Denies second hand smoke exposure. Denies exposure to chemicals or substances like asbestos. . Denies known family history of lung cancer. Denies personal history of cancers. Denies chest CT in last year. . Denies recent travel outside the [place]. Denies recent respiratory illness or recent hospitalization for respiratory issues. Denies testing positive for COVID. Admits receiving COVID Vaccine. . Denies fever, chills, new/worsening cough, hemoptysis, hoarseness or dysphagia. Denies significant chest pain, significant dyspnea or unintentional weight loss. Patient Lung Cancer Screening Questionnaire reviewed with patient by provider. . Shared Decision Making Completed. Patient meets criteria. Discussed in detail with patient, the risk vs benefit of LDCT screening. Patient consents to proceed with scan. Discussed smoking cessation. [facility] Medical History (Updated 08/06/25 @ 10:46 by Nhi Storey PA-C) Nicotine dependence, cigarettes, uncomplicated BPH (benign prostatic hyperplasia) COPD (chronic obstructive pulmonary disease) Surgical History (Updated 08/06/25 @ 10:51 by Nhi Storey PA-C) History of ear surgery History of excision of epidermal inclusion cyst History of colonoscopy History of esophagogastroduodenoscopy (EGD) History of hernia surgery Family History Mother Stroke Father Pancreatic cancer Heart disease Sister Breast cancer Social History (Updated 07/15/25 @ 15:06 by LYNDON Meneses) Household Members: Spouse Housing: House Alcohol intake: current Alcohol intake frequency: 3 or more drinks per day Alcohol type: beer Comment: QD 2-3 beers a day Patient Tobacco Use Status: Current everyday Tobacco user Tobacco use type: Cigarette Cigarette Packs Per Day: 0.25 Cigarettes Per Day: 3 Years Smoked: 5-6 a day e-Cigarette/Vaping Use: Never Used Second Hand Smoke Exposure: Yes service: No Current occupational status: employed 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 - Patient meets criteria for LDCT for lung cancer screening purposes and is asymptomatic. - Smoking cessation counseling offered. Patients can always call 4-866-Oslf-Now. - Will arrange for a LDCT scan of the chest for screening purposes at [facility]. - Risks, benefits, and alternatives were discussed in detail and the patient agrees to proceed. - Risks discussed include but are not limited to: radiation exposure, anxiety during testing and while awaiting results, false negatives, false positives and possibility of additional intervention such as further imaging or surgical procedures for benign disease. - Benefits are obviously detection of lung cancer at an early stage which can lead to improved outcomes. - Discussed the importance of screening program compliance with adherence to yearly LDCT scan as scheduled - or sooner interval scans for personalized s creening regimen. - Discussed follow up plan. Our office will send a letter discussing results and if needed set up phone call and office visit based on CT findings. - Patient educated on results categorization and the management decisions for suspicious findings potentially found on the screening LDCT scan. Any patient with a Lung RADS score of 3 or 4 will be reviewed by a multidisciplinary team at [facility] to form a plan of action in regards to scan findings. - If further work up is warranted for a suspicious lung finding this will be followed by the Lung Cancer Screening program in conjunction with the Thoracic Surgery Department at [facility]. - A copy of the office note and LDCT will be sent to the patient's PCP - as well as documentation on any associated further plans of care. - Incidental findings on LDCT are the PCP's responsibility. These findings are indicated with an S finding on the LDCT Assessment. A note discussing the findings will be sent to the PCP who is then responsible for further management. - All questions answered.? Coding Level of Care Code Lung Cancer Screening G0296 Diagnoses Nicotine dependence, cigarettes, uncomplicated F17.210
--- OUTSIDE RECORDS SUMMARY | 2025-08-06 13:05 | XMS_ITS | Patient Health Record ---
Author [facility] Address [address] [place] [address] Care Team Providers Care Ornamental Metal Worker Helper Name Role Phone Evin JASON, Radha Primary Care Provider Unavail able Natanael Davis Unavailable [phone] Allergies Allergen (clinical drug ingredient) Drug/Non Drug [...] Problem Acquired hammer toe of left foot ([id number] 103) Hammer toe of left foot (M20.42) Active confirmed Plan Of Treatment Pending Test Test Name Order Date X ray : Foot, left 3V 05/23/2022 Insurance Providers Payer Name Payer Address Payer Phone Subscriber Number Group Number Insured Name Patient Relationship to Insured Coverage Start Date Coverage End Date [employer] Medicare Adv-[id number] [address] [address] [place] [address] [phone] [id number] Ruslan Hoang Self - patient is the insured Medical (General) History Medical History History ICD Code Chicken pox Surgical History Surgery Date(Month/Year) hernia 2012
== END 2025-08-06 16:25 | disposition home or self-care (01) ==
LOC: HO.HPS 10:40
PROVIDERS: PCP Internal Medicine; Referring Provider Internal Medicine; Visit Provider Physician Assistant Medical
DX: F17.210 Nicotine dependence, cigarettes, uncomplicated (principal)
CPT/HCPCS: G0296

== ENCOUNTER 2025-08-06 10:54 | Outpatient (REF) | payer MEDICARE, SELFPAY ==
--- NOTE | ~2025-08-06 | CT_ITS ---
EXAMINATION: CT LUNG SCREENING HISTORY: F17.210 - Nicotine dependence, cigarettes, uncomplicated TECHNIQUE: Low dose axial images were obtained from the sternal notch to upper abdomen without IV contrast per standard departmental protocol. Sagittal and coronal reformatted images were also obtained and reviewed. One or more of the following techniques was used for dose reduction: Automated exposure control, adjustment of the mA and/or kV according to patient size, use of iterative reconstruction technique. DLP: 74 mGy-cm COMPARISON: Chest x-ray most recent March 2025 FINDINGS: Lung nodules: Biapical pleural and parenchymal scarring, right greater than left. Irregularly-shaped nodular opacity in the right lung apex question related to pleural and parenchymal scarring. This measures 2.2 x 2.4 cm coronal reconstructed image 108 series 502 and 8 mm in AP dimension sagittal reconstructed image 104 series 10. This may be related to pleural and parenchymal scarring. 5 mm partially calcified left upper lobe nodule adjacent to the aortic arch axial image 38 series 4. 5 mm right upper lobe nodule axial image 63 series 4. 5 mm calcified left upper lobe nodule axial image 67 series 4. A 2 x 4 mm peripheral or subpleural left lower lobe nodule adjacent to the fissure axial image 102 series 4. 3 x 6 mm right lower lobe nodule adjacent to the major fissure axial image 120 series 4. 6 mm right lower lobe nodule axial image 131 series 4. 4 mm right lower lobe nodule axial image 129 series 5. 4 mm right lower lobe nodule axial image 132 series 4. 2 mm calcified right lower lobe nodule axial image 136 series 4. 5 mm right middle lobe nodule axial image 127 series 4. Increased soft tissue is seen in the right lateral dependent right mainstem bronchus for example axial image 59 series 5 and coronal reconstructed image 89 series 502. This contains some air and may represent patient's secretions. Emphysema: moderate Coronary Calcification: mild Aortic Arch Calcification: mild Additional Chest Findings: Normal heart size. Small to moderate pericardial effusion. No mediastinal or axillary lymphadenopathy is identified. Normal-appearing thyroid gland. Visualized upper abdomen: The visualized portions of the liver, spleen, and adrenals have an unremarkable unenhanced appearance. Degenerative changes of the spine. CT/CT lung screening IMPRESSION: Moderate emphysema. Biapical pleural and parenchymal scarring right greater than left. 2.2 x 2.4 cm right apical nodule, question related to pleural and parenchymal scarring. Additional calcified and noncalcified pulmonary nodules measuring up to 6 mm. 6 mm nodular density in the right mainstem bronchus. LUNG-RADS ASSESSMENT: Lung-RADS 3: Probably Benign MANAGEMENT: 6 month LDCT Category S: Pericardial effusion. Electronically signed by: Sonia Vásquez MD 08/06/2025 11:59 AM EDT
== END 2025-08-06 10:55 | disposition home or self-care (01) ==
LOC: HO.CT 10:54
PROVIDERS: PCP Internal Medicine; Visit Provider Physician Assistant Medical
DX: Z12.2 Encounter for screening for malignant neoplasm of respiratory organs (principal); F17.210 Nicotine dependence, cigarettes, uncomplicated
CPT/HCPCS: 71271; G0296

== ENCOUNTER → 2025-08-06 10:55 | Outpatient (BNV) | payer MEDICARE, SELFPAY | PROVIDERS: PCP Internal Medicine; Visit Provider Radiology Diagnostic Radiology | DX: F17.210 Nicotine dependence, cigarettes, uncomplicated (principal) | CPT/HCPCS: 71271 ==